=== PATIENT | female | born 1970 | race Caucasian/White ===

== ENCOUNTER 2020-12-22 11:00 | Inpatient (IN) | payer BC, OTHER ==
[2020-12-22] MEDS ORDERED: SODIUM CHLORIDE 0.9% 1,000 ML IV ONE (12:02)
--- NOTE | 2020-12-22 12:43 | ED ---
General Adult HPI - General Source: patient, family, RN notes reviewed, old records reviewed Mode of arrival: wheelchair Limitations: no limitations <Tenzin Nix - Last Filed: 12/22/20 14:47> <Antonio Butcher - Last Filed: 12/22/20 16:58> - General Chief complaint: Neuro Symptoms/Deficit Stated complaint: Vision loss Time Seen by Provider: 12/22/20 11:45 - History of Present Illness Initial comments: 50-year-old female presenting for evaluation of vision changes. Patient has history of brain aneurysm, status post coiling and stenting. Patient had right sided weakness which is been present since September of this year. She had been told this may have been a conversion disorder. She's had a significant amount of stress within the past 12 months. Patient states that this morning she noted a holguin spot in her left visual soares. She denies any worsening weakness. She did have some perioral numbness which has resolved. (Tenzin Nix) - Related Data Home Medications Medication Instructions Recorded Confirmed [id number] 2 tab PO QID PRN 12/22/20 12/22/20 [Excedrin] Famotidine 20 mg PO BID 12/22/20 12/22/20 hydroCHLOROthiazide [Hydrodiuril] 25 mg PO DAILY 12/22/20 12/22/20 lisinopriL 40 mg PO HS 12/22/20 12/22/20 Allergies Allergy/AdvReac Type Severity Reaction Status Date / Time adhesive Allergy Rash/Hives Verified 12/22/20 12:42 Sulfa (Sulfonamide Allergy Rash/Hives Verified 12/22/20 12:42 Antibiotics) Review of Systems ROS Other: All systems not noted in ROS Statement are negative. <Tenzin Nix - Last Filed: 12/22/20 14:47> ROS Other: All systems not noted in ROS Statement are negative. <Antonio Butcher - Last Filed: 12/22/20 16:58> ROS Statement: Those systems with pertinent positive or pertinent negative responses have been documented in the HPI. Past Medical History Past Medical History: Hypertension History of Any Multi-Drug Resistant Organisms: None Reported Additional Past Surgical History / Comment(s): brain coil. Past Psychological History: No Psychological Hx Reported Smoking Status: Current every day smoker Past Alcohol Use History: None Reported Past Drug Use History: None Reported <Tenzin Nix - Last Filed: 12/22/20 14:47> General Exam Limitations: no limitations General appearance: alert, in no apparent distress Head exam: Present: atraumatic, normocephalic Eye exam: Present: normal appearance, PERRL ENT exam: Present: normal exam Neck exam: Present: normal inspection. Absent: tenderness, meningismus Respiratory exam: Present: normal lung sounds bilaterally, respiratory distress Cardiovascular Exam: Present: normal rhythm, tachycardia GI/Abdominal exam: Present: soft. Absent: distended, tenderness, guarding Extremities exam: Present: normal capillary refill. Absent: calf tenderness Neurological exam: Present: other (Patient has right limb upper hemiplegia. Proximal muscle groups of the leg are 5 out of 5. Her left side is 5 out of 5 no drift. Ataxia.) Psychiatric exam: Present: normal affect, normal mood Skin exam: Present: warm, dry, intact. Absent: cyanosis, diaphoretic <Tenzin Nix - Last Filed: 12/22/20 14:47> Course <Tenzin Nix - Last Filed: 12/22/20 14:47> Vital Signs 12/22/20 12/22/20 11:36 12:42 Temperature 98.4 F Pulse Rate 108 H Respiratory 18 18 Rate Blood Pressure 87/50 O2 Sat by Pulse 98 Oximetry - Reevaluation(s) Reevaluation #1: 12/22/20 1500 Patient care signed out at shift change to Dr. Butcher pending workup. 12/22/20 14:50 (Tenzin Nix) EKG Findings - EKG Comments: EKG Findings:: EKG: Normal sinus rhythm, rate of 95, VT interval 178, QRS duration 82, QTC [address] segment elevation, question diffuse VT depression. <Tenzin Nix - Last Filed: 12/22/20 14:47> Medical Decision Making - Lab Data Result diagrams: 12/22/20 12:59 12/22/20 12:59 <Tenzin Nix - Last Filed: 12/22/20 14:47> - Lab Data Result diagrams: 12/22/20 12:59 12/22/20 12:59 <Atnonio Butcher - Last Filed: 12/22/20 16:58> - Medical Decision Making Patient was signed out to me from previous shift physician Dr. Garvin. Briefly, patient is a 50-year-old female with residual right sided sensory par esthesias. 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 She is here today for vision changes in her left eye. She sees a holguin spot in central portion of her vision. She does not have any pain. No other neuro changes besides vision changes. Allegedly this patient was told that her symptoms may be secondary to conversion disorder because she had a workup that showed normal MRI. Laboratory evaluation obtained. CBC, coag panel, metabolic panel is unremarkable. Computed tomography scan of the brain shows no acute processes. CT angio of the head and neck was obtained showing no significant diameter reduction. The examination is nondiagnostic given extensive streak artifact from prior aneurysm clipping. Patient does not have any headache signs of ruptured aneurysm. Some clear fevers any other aneurysms causing patient's visual loss. 4:30 PM: Patient evaluated at bedside and has no progression of symptoms. She states that her vision changes are improved. She is well-appearing. Patient be admitted for acute vision loss. Patient is not a TPA candidate because she woke with symptoms, and it is unclear the time of onset. She has a normal CT brain and CT angio of the head and neck. Furthermore her NIH delta score is 1. At this point risk outweigh the benefits. Case is discussed with Dr. Colt Pool accounting consultant for neurology who will be on consult. He request that patient be given an aspirin and started on Lipitor. He also requests that he should have lipid panel drawn and 2-D echo. Case was discussed with Dr. Vitale of [facility] was willing to accept patients care. Ophthalmology will also be on consult. (Antonio Butcher) - Lab Data Lab Results 12/22/20 12/22/20 12/22/20 Range/Units 12:59 12:59 12:59 WBC 10.5 (3.8-10.6) k/uL RBC 4.24 (3.80-5.40) m/uL Hgb 14.5 (11.4-16.0) gm/dL Hct 41.7 (34.0-46.0) % MCV 98.2 (80.0-100.0) fL MCH 34.2 (25.0-35.0) pg MCHC 34.8 (31.0-37.0) g/dL RDW 12.9 (11.5-15.5) % Plt Count 429 (150-450) k/uL MPV 6.9 Neutrophils % 84 % Lymphocytes % 12 % Monocytes % 3 % Eosinophils % 1 % Basophils % 0 % Neutrophils # 8.8 H (1.3-7.7) k/uL Lymphocytes # 1.3 (1.0-4.8) k/uL Monocytes # 0.3 (0-1.0) k/uL Eosinophils # 0.1 (0-0.7) k/uL Basophils # 0.0 (0-0.2) k/uL PT 9.6 (9.0-12.0) sec INR 0.9 (<1.2) APTT 23.6 (22.0-30.0) sec Sodium 134 L (137-145) mmol/L Potassium 4.6 (3.5-5.1) mmol/L Chloride 105 (98-107) mmol/L Carbon Dioxide 22 (22-30) mmol/L Anion Gap 7 mmol/L BUN 13 (7-17) mg/dL Creatinine 0.69 (0.52-1.04) mg/dL Est GFR (CKD-EPI)AfAm >90 (>60 ml/min/1.73 sqM) Est GFR (CKD-EPI)NonAf >90 (>60 ml/min/1.73 sqM) Glucose 104 H (74-99) mg/dL Calcium 10.0 (8.4-10.2) mg/dL Total Bilirubin 0.4 (0.2-1.3) mg/dL AST 31 (14-36) U/L ALT 21 (4-34) U/L Alkaline Phosphatase 55 (38-126) U/L Troponin I (0.000-0.034) ng/mL Total Protein 6.4 (6.3-8.2) g/dL Albumin 4.1 (3.5-5.0) g/dL 12/22/20 Range/Units 12:59 WBC (3.8-10.6) k/uL RBC (3.80-5.40) m/uL Hgb (11.4-16.0) gm/dL Hct (34.0-46.0) % MCV (80.0-100.0) fL MCH (25.0-35.0) pg MCHC (31.0-37.0) g/dL RDW (11.5-15.5) % Plt Count (150-450) k/uL MPV Neutrophils % % Lymphocytes % % Monocytes % % Eosinophils % % Basophils % % Neutrophils # (1.3-7.7) k/uL Lymphocytes # (1.0-4.8) k/uL Monocytes # (0-1.0) k/uL Eosinophils # (0-0.7) k/uL Basophils # (0-0.2) k/uL PT (9.0-12.0) sec INR (<1.2) APTT (22.0-30.0) sec Sodium (137-145) mmol/L Potassium (3.5-5.1) mmol/L Chloride (98-107) mmol/L Carbon Dioxide (22-30) mmol/L Anion Gap mmol/L BUN (7-17) mg/dL Creatinine (0.52-1.04) mg/dL Est GFR (CKD-EPI)AfAm (>60 ml/min/1.73 sqM) Est GFR (CKD-EPI)NonAf (>60 ml/min/1.73 sqM) Glucose (74-99) mg/dL Calcium (8.4-10.2) mg/dL Total Bilirubin (0.2-1.3) mg/dL AST (14-36) U/L ALT (4-34) U/L Alkaline Phosphatase (38-126) U/L Troponin I <0.012 (0.000-0.034) ng/mL Total Protein (6.3-8.2) g/dL Albumin (3.5-5.0) g/dL Disposition <Tenzin Nix - Last Filed: 12/22/20 14:47> Decision Time: 16:58 <Antonio Butcher - Last Filed: 12/22/20 16:58> Clinical Impression: Vision loss Disposition: ADMITTED IP TO THIS [facility] Condition: Fair Referrals: Oumar Shetty MD [Primary Care Provider] - 1-2 days
[2020-12-22 13:13] LABS: Basophils % (A) 0 %; Eosinophils # (A) 0.1 k/uL (0-0.7); Eosinophils % (A) 1 %; HCT 41.7 % (34.0-46.0); HGB 14.5 gm/dL (11.4-16.0); Lymphocytes # (A) 1.3 k/uL (1.0-4.8); Lymphocytes % (A) 12 %; MCH 34.2 pg (25.0-35.0); MCHC 34.8 g/dL (31.0-37.0); MCV 98.2 fL (80.0-100.0); Mean Platelet Volume 6.9; Monocytes # (A) 0.3 k/uL (0-1.0); Monocytes % (A) 3 %; Neutrophils # (A) 8.8 k/uL (1.3-7.7); Neutrophils % (A) 84 %; Platelet Count 429 k/uL (150-450); RBC 4.24 m/uL (3.80-5.40); RDW 12.9 % (11.5-15.5); WBC 10.5 k/uL (3.8-10.6)
--- NOTE | 2020-12-22 13:25 | XR ---
EXAMINATION TYPE: XR chest 2V DATE OF EXAM: 12/22/2020 COMPARISON: None HISTORY: 50-year-old female confusion, altered mental status TECHNIQUE: AP and lateral views FINDINGS: The cardiomediastinal silhouette, aorta, and pulmonary vasculature are within normal limits. Mild hyp erinflation. Otherwise, lungs and pleural spaces are clear. IMPRESSION: Mild hyperinflation may relate to depth of inspiration or underlying emphysema. Otherwise, no acute c ardiopulmonary process.
[2020-12-22 13:28] LABS: ALT 21 U/L (4-34); AST 31 U/L (14-36); African American GFR (CKD) >90 (>60 ml/min/1.73 sqM); Albumin 4.1 g/dL (3.5-5.0); Alkaline Phosphatase 55 U/L (38-126); Anion Gap 7 mmol/L; Blood Urea Nitrogen 13 mg/dL (7-17); Carbon Dioxide 22 mmol/L (22-30); Chloride 105 mmol/L (98-107); Glucose 104 mg/dL (74-99); Non-African American GFR(CKD) >90 (>60 ml/min/1.73 sqM); Potassium 4.6 mmol/L (3.5-5.1); Sodium 134 mmol/L (137-145); Total Bilirubin 0.4 mg/dL (0.2-1.3); Total Protein 6.4 g/dL (6.3-8.2)
[2020-12-22 13:29] LABS: INR 0.9 (<1.2); Partial Thromboplastin Time 23.6 sec (22.0-30.0); Prothrombin Time 9.6 sec (9.0-12.0)
--- NOTE | 2020-12-22 14:56 | CT ---
EXAMINATION TYPE: CT brain wo con for TPA DATE OF EXAM: 12/22/2020 COMPARISON: None HISTORY: Vision Loss CT DLP: [address] of the brain was performed. Extensive streak artifact from aneurysm clipping limits portions of the study. The ventricles, basal cisterns and sulci overlying the cerebral convexities demonstrate mild enlargem ent. There is no evidence for intracranial hemorrhage or sulcal effacement. There is decreased attenuation about the periventricular white matter and deep white matter of both c erebral hemispheres, compatible with chronic small vessel ischemia. Differential diagnosis does inclu de demyelination. No mass effects are seen.No midline shift. Osseous calvarium is intact. If symptoms persist consider MRI. IMPRESSION: 1. Age related atrophic and chronic small vessel ischemic change without acute intracranial process s een at this time.Extensive streak artifact from aneurysm clipping limits portions of the study.
--- NOTE | 2020-12-22 16:04 | CT ---
Bilateral mammogram: Moderate EXAMINATION TYPE: CT angio head neck DATE OF EXAM: 12/22/2020 COMPARISON: none HISTORY: Vision Loss CT DLP: 611.9 mGycm CONTRAST: Performed without and with IV Contrast, patient injected with 65 ml mL of Isovue 370. Combination Contrast CTA cervical carotids and [place] CTA cervical carotids with 3-D recons truction Contrast CTA of the cervical carotids was performed 3-D reconstruction imaging obtained at a separate workstation. Right carotid system: Mild plaque is seen of the right common carotid artery. There is mild plaque a lso noted at the carotid bulb and proximal ICA. No significant diameter reduction. ECA is patent. Right vertebral artery appears unremarkable. Left carotid system: Mild plaque is seen of the left common carotid artery. There is mild plaque als o noted at the carotid bulb and proximal ICA. No significant diameter reduction. ECA is patent. Lef t vertebral artery appears unremarkable. IMPRESSION: 1. No significant diameter reduction to account for the patient's symptoms. CTA [place] with 3-D reconstruction. The examination is nondiagnostic given extensive streak artifact from prior aneurysm clipping. Contrast CTA of the [place] was performed 3-D reconstruction imaging obtained at a separate workstation. IMPRESSION: 1. Essentially nondiagnostic evaluation of the [place].
[2020-12-22] MEDS ORDERED: ASPIRIN 81 MG PO STA (16:50)
[2020-12-22] MEDS ORDERED: ATORVASTATIN 80 MG TAB PO STA (16:50)
[2020-12-22] MEDS ORDERED: NALOXONE 0.4 MG/ML 1 ML VIAL IV PRN ×2 (16:54→18:09)
[2020-12-22] MEDS: SODIUM CHLORIDE 0.9% 1,000 ML IV SCH (17:15)
[2020-12-22] MEDS: MORPHINE SULFATE 4 MG/ML SYRINGE IVP PRN ×2 (17:41→23:11)
--- NOTE | 2020-12-22 18:16 | P.HPIM ---
History of Present Illness H&P Date: 12/22/20 Chief Complaint: vision loss 50-year-old female with history of brain aneurysm status post clipping in June of last year, right sided weakness and right arm spasms thought to be secondary to conversion disorder by previous evaluation by neurology presenting for evaluation of vision loss in the right eye. She also states that she has been having increasing numbness around her mouth and the right fingertips. She states that she had a significant amount of stress due to her mother dying from a stroke last August. She denies any worsening weakness. Evaluation in the emergency department with basic labs, head CT as well as CT angiogram of the head and neck are all unremarkable. She was admitted to observation for neurology evaluation. Review of Systems Complete review of system performed, pertinent positives per HPI, otherwise negative. Past Medical History Past Medical History: Hypertension History of Any Multi-Drug Resistant Organisms: None Reported Additional Past Surgical History / Comment(s): brain coil. Past Psychological History: No Psychological Hx Reported Smoking Status: Current every day smoker Past Alcohol Use History: None Reported Past Drug Use History: None Reported Medications and Allergies Home Medications Medication Instructions Recorded Confirmed Type [id number] 2 tab PO QID PRN 12/22/20 12/22/20 History [Excedrin] Famotidine 20 mg PO BID 12/22/20 12/22/20 History hydroCHLOROthiazide [Hydrodiuril] 25 mg PO DAILY 12/22/20 12/22/20 History lisinopriL 40 mg PO HS 12/22/20 12/22/20 History Allergies Allergy/AdvReac Type Severity Reaction Status Date / Time adhesive Allergy Rash/Hives Verified 12/22/20 12:42 Sulfa (Sulfonamide Allergy Rash/Hives Verified 12/22/20 12:42 Antibiotics) Physical Exam Vitals: Vital Signs Temp Pulse Resp BP Pulse Ox 12/22/20 17:00 84 18 165/98 98 12/22/20 16:00 97.2 F L 80 18 165/91 98 12/22/20 15:00 18 12/22/20 14:00 18 12/22/20 13:00 18 12/22/20 12:42 18 12/22/20 11:36 98.4 F 108 H 18 87/50 98 Intake and Output 12/22/20 12/22/20 12/22/20 06:59 14:59 22:59 Other: Weight 80.286 kg Constitutional: No acute distress, conversant Eyes:Anicteric sclerae, moist conjunctiva, no lid-lag, PERRLA, ENMT: Oropharynx clear, no erythema, exudates Neck: Supple, FROM, no masses, or JVD, No carotid bruits, No thyromegaly Lungs: Clear to auscultation, Clear to percussion, Normal respiratory effort, no accessory muscle use Cardiovascular: Heart regular in rate and rhythm, No murmurs, gallops, or rubs, No peripheral edema Abdominal: Soft, Nontender, no guarding, rebound or rigidity, Normoactive bowel sounds, No hepatomegaly, No splenomegaly, No palpable mass Skin: Normal temperature, tone, texture, turgor, no induration, No subcutaneous nodules, No rash, lesions, No ulcers Extremities: No digital cyanosis, No clubbing, Pedal pulses intact and symmetrical, Radial pulses intact and symmetrical, No calf tenderness Psychiatric: Alert and oriented to person, place and time, low affect. Frequently tearful Neuro: Right-sided weakness, right arm spasms, Cranial nerves II-XII grossly intact, no focal sensory deficits Results CBC & Chem 7: 12/22/20 12:59 12/22/20 12:59 Labs: Abnormal Lab Results - Last 24 Hours (Table) 12/22/20 12/22/20 Range/Units 12:59 12:59 Neutrophils # 8.8 H (1.3-7.7) k/uL Sodium 134 L (137-145) mmol/L Glucose 104 H (74-99) mg/dL Assessment and Plan Plan: Visual changes Likely secondary to stress, anxiety and conversion disorder Admit to observation Neurology consult Psychiatry consult Further neurology workup according to neurologist Essential hypertension Stable Resume meds Admit to observation
[2020-12-22] MEDS ORDERED: lisinopriL 20 MG TAB PO SCH (21:00)
[2020-12-22] MEDS: FAMOTIDINE 20 MG TAB PO SCH (23:11)
[2020-12-23] MEDS: MORPHINE SULFATE 4 MG/ML SYRINGE IVP PRN ×2 (05:45→15:22)
[2020-12-23 08:11] LABS: Cholesterol 155 mg/dL (<200); HDL Cholesterol 62 mg/dL (40-60); LDL Cholesterol,Calculated 73 mg/dL (0-99); Triglycerides 102 mg/dL (<150)
[2020-12-23] MEDS: hydroCHLOROthiazide 25 MG TAB PO SCH (08:22)
[2020-12-23] MEDS: FAMOTIDINE 20 MG TAB PO SCH ×2 (08:22→21:08)
[2020-12-23] MEDS ORDERED: PROPARACAINE 0.5% OPHTH DROPS 15 ML BTL BOTH EYES STA (09:00)
[2020-12-23] MEDS ORDERED: TROPICAMIDE 1% OPHTH DROPS 2 ML BTL BOTH EYES ONE (09:00)
[2020-12-23] MEDS ORDERED: ARTIFICIAL TEARS-HYPROMELLOSE DROPS 15 ML BTL BOTH EYES PRN (09:00)
--- NOTE | 2020-12-23 11:01 | ECHOF ---
Referral Reason:VISION LOSS MEASUREMENTS -------- HEIGHT: 162.6 cm WEIGHT: 80.3 kg BP: 188/83 RVIDd: 2.7 cm (< 3.3) IVSd: 1.5 cm (0.6 - 1.1) LVIDd: 4.6 cm (3.9 - 5.3) LVPWd: 1.2 cm (0.6 - 1.1) IVSs: 1.8 cm LVIDs: 2.9 cm LVPWs: 1.6 cm LAESV Index (A-L): 28.32 ml/m Ao Diam: 3.6 cm (2.0 - 3.7) AV Cusp: 2.0 cm (1.5 - 2.6) MV EXCURSION: 22.777 mm (> 18.000) MV EF SLOPE: 51 mm/s (70 - 150) EPSS: 0.2 cm MV E Stephen: 1.22 m/s MV DecT: 263 ms MV A Stephen: 1.08 m/s MV E/A Ratio: 1.13 AV maxP.36 mmHg AV meanP.18 mmHg RAP: 15.00 mmHg RVSP: 44.52 mmHg FINDINGS -------- Sinus rhythm. This was a technically adequate study. The left ventricular size is normal. There is moderate concentric left ventricular hypertrophy. O verall left ventricular systolic function is normal with, an EF between 60 - 65 %. The right ventricle is normal in size. Normal LA size by volume 22+/-6 ml/m2. The right atrium is normal in size. Interatrial and interventricular septum intact. The aortic valve is bicuspid. There is mild aortic stenosis present. Peak/mean gradient across th e Aortic Valve is 16.36mmHg / 8.18mmHg. The mitral valve is normal. Mild tricuspid regurgitation present. There is mild pulmonary hypertension. The right ventricular systolic pressure, as measured by Doppler, is 44.52mmHg. Trace/mild (physiologic) pulmonic regurgitation. The aortic root size is normal. Normal inferior vena cava with less than 50% inspiratory collapse consistent with estimated right atr ial pressure of 15 mmHg. There is no pericardial effusion. CONCLUSIONS -------- 1. The left ventricular size is normal. 2. There is moderate concentric left ventricular hypertrophy. 3. Overall left ventricular systolic function is normal with, an EF between 60 - 65 %. 4. The aortic valve is bicuspid. 5. There is mild aortic stenosis present. 6. Peak/mean gradient across the Aortic Valve is 16.36mmHg / 8.18mmHg. 7. Mild tricuspid regurgitation present. 8. There is mild pulmonary hypertension. 9. The right ventricular systolic pressure, as measured by Doppler, is 44.52mmHg. 10. Trace/mild (physiologic) pulmonic regurgitation. 11. Normal inferior vena cava with less than 50% inspiratory collapse consistent with estimated right atrial pressure of 15 mmHg. 12. There is no pericardial effusion. NUCLEAR MEDICINE SPECIALIST: Lennie Ortega RDCS
--- NOTE | 2020-12-23 12:10 | P.CNNES ---
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 She stated that she seeing gag response over a bilateral left side of the eyes and it's been happening since the yesterday 4:00 in the morning. She said when she covered either eye it does not resolve. She denies of any diplopia. Denies of any weakness look into the right or left or up and down. She denies of any fever. She stated that she is also noticed num bness in the fingertips of the entire left hand as well as numbness around the left mouth which the lasted for a couple hours then that resolved. She denies of any worsening weakness on the right side or any new weakness. She denies difficulty getting words out. Besides that visual disturbance as she said that neurologically she is about the same at. She denies of any headache. She denies being on any antiplatelets or statin. According to the patient that she had that a brain aneurysm coil in June 2020 over at [facility] (by Dr. Taylor, Neurosurgeon) then 2 month later she noticed that she had right-sided weakness and according to the patient she was told that it was not related to her aneurysm or the coiling. He had a diagnostic cerebral angiogram regarding the coiling by the neurosurgeon in September 2020 and was told that everything looks stable and was told to get the a surveillance in September 2021. She said that she has is following-up with a neurologist (Dr. Cuellar) over at [facility] and had MRI of the brain and was told her right-sided weakness so was due to conversion according to the patient. She was seen last by Dr. Cuellar in 3rd week of November 2020 and has appointment with him in December 2020. Regarding her right-sided weakness she said that she has chronic neck pain but denies any radiation to the arms and denies any numbness or tingling of bilateral proximal remedies. Workup in the hospital consisted of: Distal vital signs: Blood pressure of 87/50, heart rate of 108, respiratory of 18, temperature of 98.4 Fahrenheit oral, respiratory rate of 98% room air. CT of the head is reported as age-related atrophic and chronic small vessel ischemic change without acute intracranial process seen at this time. Extensive streak artifact from aneurysm clipping limits portion of the study. Upon reviewing its is seems in the basilar tip aneurysm status post coiling. I reviewed it with the reading radiologist and he did agree that he felt was in the basilar tip aneurysm in the from the past. CTA head and neck is reported as no significant diameter reduction to account for the patient's symptoms. CT angiography [place] with 3-D reconstruction. Examination is nondiagnostic given the extensive streak artifact from the prior aneurysm clipping. White blood cell is 10.5 which is normal. Sodium is 134 which is a minimally low. The glucose is 104. Lipid panel: Triglyceride 102, cholesterol 155, LDL is 73 and HDL 62. Review of Systems Review of system: The 12 point system was reviewed and apparent positive and negative per HPI. Past Medical History Past Medical History: Hypertension Additional Past Medical History / Comment(s): Brain aneurysm 17 coils and 3 stents History of Any Multi-Drug Resistant Organisms: None Reported Additional Past Surgical History / Comment(s): brain coil. Past Psychological History: No Psychological Hx Reported Smoking Status: Current every day smoker Past Alcohol Use History: None Reported Past Drug Use History: None Reported Medications and Allergies Home Medications Medication Instructions Recorded Confirmed Type Zaajdfg-[id number] [id number] 2 tab PO QID PRN 12/22/20 12/22/20 History [Excedrin] Famotidine 20 mg PO BID 12/22/20 12/22/20 History hydroCHLOROthiazide [Hydrodiuril] 25 mg PO DAILY 12/22/20 12/22/20 History lisinopriL 40 mg PO HS 12/22/20 12/22/20 History Allergies Allergy/AdvReac Type Severity Reaction Status Date / Time adhesive Allergy Rash/Hives Verified 12/22/20 12:42 Sulfa (Sulfonamide Allergy Rash/Hives Verified 12/22/20 12:42 Antibiotics) Physical Examination - Vital Signs Vital Signs: Vital Signs Temp Pulse Pulse Resp BP BP Pulse Ox 12/23/20 08:19 97.6 F 85 18 169/72 97 12/23/20 08:00 85 18 12/23/20 04:00 88 18 188/83 95 12/23/20 02:00 76 18 12/22/20 22:42 98.1 F 76 18 180/85 94 L 12/22/20 20:00 72 18 159/95 98 12/22/20 19:00 79 18 136/97 98 12/22/20 18:00 81 18 98 12/22/20 17:00 84 18 165/98 98 12/22/20 16:00 97.2 F L 80 18 165/91 98 12/22/20 15:00 18 12/22/20 14:00 18 12/22/20 13:00 18 12/22/20 12:42 18 12/22/20 11:36 98.4 F 108 H 18 87/50 98 Intake and Output 12/22/20 12/23/20 12/23/20 22:59 06:59 14:59 Intake Total 20 Balance 20 Intake: Intake, IV Titration 20 Amount Sodium Chloride 0.9% 1, 20 000 ml @ 20 mls/hr IV . Q24H [facility] Rx#:[id number] Other: Voiding Method Toilet Weight 80.286 kg 81.3 kg GENERAL: The patient is lying in bed and is not in acute distress. CHEST: The heart rate is regular rate rhythm. No murmurs to auscultation. No carotid bruit bilaterally. LUNG: Clear to auscultation bilaterally no wheezing noted throughout. Not labored breathing. ABDOMEN/GI: Bowel sounds present in all 4 quadrants. No tenderness to palpation throughout. NEUROLOGICAL: Higher mental function: The patient is awake, alert, oriented to self, place and time. Patient is following commands. No aphasia and no neglect. Cranial nerves: Visual acuity is 20/40 OU without correction. The pupils are round, equal and reactive to light and accommodation. Visual soares are full to confrontation throughout. Extraocular movement is intact no nystagmus is noted. Facial sensation is normal to touch throughout. The facial strength is normal throughout. Hearing is normal bilaterally to hand rub. Tongue is midline and moved [id number] without any difficulty. Mild dysarthria is noted (chronic). Shoulder shrug is antigravity bilaterally and had limited assessing because of pain. Motor: Gait is deferred. The strength is proximally of right upper extremity is antigravity but has weakness distally > proximally. Is able to lift right lower extremity above gravity and right thigh flexion/extension is 4+ while distall is 4 except ankles are 3/5. While left is 5/5. There is increase tone of ther right elbow and mild increase tone in right lower extremity (especially ankle). Cerebellum: Normal finger to nose over the left. Sensation: Sensation is normal to touch throughout. Reflexes (right/left): Entire right is 3+ while left is brisk over the biceps and patellar. Plantars are upgoing bilaterally. Results Calcium is 10.0 which is normal. The AST is 31 and ALTs 21 which is normal. Coagulation study: PT of 9.6, INR 0.9 and the PTT is 23.6 Angulo virus PCR is not detected. - Laboratory Findings CBC and BMP: 12/22/20 12:59 12/22/20 12:59 Abnormal Lab Findings: Abnormal Labs 12/22/20 12/22/20 12/23/20 12:59 12:59 07:40 Neutrophils # 8.8 H Sodium 134 L Glucose 104 H HDL Cholesterol 62 H Assessment and Plan Assessment: This is a 50-year-old woman that presented to the emergency department on 2020 with visual disturbance over the left eye. Visual disturbance seeing schwartz spot over bilateral left side: Unknown exact cause. Cannot rule out stroke. 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 Residual right-sided weakness with increased tone which has been present since August 2020 or September 2020 (was told she has conversion disorder by her neurologist)---I Don't think this is coversion and feels seem possibly cervical lesion. Cannot rule out brain aneurysm as culprit (she was told by her neurosurgeon it was not cause). Hypertension Chronic Stress disorder Plan: CT of the head is reported as age-related atrophic and chronic small vessel ischemic change without acute intracranial process seen at this time. Extensive streak artifact from aneurysm clipping limits portion of the study. Upon reviewing its is seems in the basilar tip aneurysm status post coiling not clipping. I reviewed it with the reading radiologist and he did agree that he felt was in the basilar tip aneurysm in the from the past and he will he felt was more coiling over clipping. CTA head and neck is reported as no significant diameter reduction to account for the patient's symptoms. CT angiography [place] with 3-D reconstruction. Examination is nondiagnostic given the extensive streak artifact from the prior aneurysm clipping. I ordered MRI of the brain, MRA of the head and MRI of the cervical. Lipid panel: Triglyceride 102, cholesterol 155, LDL is 73 and HDL 62. I started the patient on aspirin 81 mg and Lipitor 40 mg for secondary stroke prophylaxis. 2-D echo is pending Continue cardiac monitoring. I consulted physical therapy and occupation therapy Ophthalmology team is consulted. Please avoid any hypotensive episode and keep the blood pressure normotensive and we'll defer the management to the primary team. Thank you for the consultation. Colt Pool M.D. Neuro-hospitalist Time with Patient: Greater than 30
[2020-12-23] MEDS: ASPIRIN 81 MG PO SCH (12:13)
--- NOTE | 2020-12-23 14:29 | P.CON ---
Consult Note - . Consult date: 12/23/20 Assessment/Plan:: This is 50 y/o female who underwent an aneurysmal coiling in June 2020 without incident. She was without side effects until approximately 2 months later when she demonstrated right-sided weakness. Apparently this became an issue some time after suspending the use of clopidogrel. And this problem is still under study. On 22 December at ~0300 hrs on arising to go to the bathroom she became aware of slightly off left central "smudge" affecting both eyes. She states that her central vision change has not affected her ability to read, but is aware of a "greying" of that vision. This problem has not improved since arriving and being admitted to the hospital. I currently have no comparitive visual acuities from emergency room admission for this afternoon's examination. She states her last eye exam was about 2 years ago. She had obtained reading glasses at that time, but has lost them and has been using OTC readers in lieu of the prescription lenses. She denies any previous eye problems, e.g. glaucoma, surgery, macular or vascular problems. There is no history of amblyopia either. Ext: normal facial examination Va: w/ OTC readers as distance 20/20 in each eye EOM: full and orthophoric Pupils: no APD from 4 to 3 mm on presenation of light Confrontational Barker: normal OU IOP: Tonopen @1250 17 OD, 16 OS. Dilated: topicamide & neosynephrine @ 1250 hrs ( expect about 6 hours of dilation ) Cornea: clear OU AC: clear and quiet OU Iris: no pathology Lens: clear OU Vitreous: clear OU Optic nerve: S/F/P C:D 0.1 OU, no dropout noted Mac: normal foveolar light reflex, no edema, deposits or exudative changes OU Vascular: 0.60 OU Peripheral retina: Normal, no aneurysms, heme, exudative changes; no tears, scars, other physical defects noted A: Vision abnormalities: H53.9, bilateral: the description of the problem is possibly posterior chiasmal defect. Can better determine if a visual field has been completed. Perhaps additional information can be gleaned from an MRI. CT too tough to follow optic nerves posteriorly. Presbyopia: normal age-related changes needs update in glasses and unrelated to the current complaint for admission. P: Will defer studies and ongoing treatment plans to current care team. I am can provide additional information as needed, possibly visual field to determine scope of defect and its described homonymous nature. I will return on request while hospitalized. Thank you for the consultation of this interesting patient.
--- NOTE | 2020-12-23 14:47 | P.PN ---
Subjective Progress Note Date: 12/23/20 Principal diagnosis: visual field defect Patient still having the visual defect, unchanged compared to presentation yesterday. Yesterday she told me that was in her right eye and today she is stating that it is in both eyes. No slurred speech, double vision, no worsening in her chronic right sided weakness. Objective - Vital Signs Vital signs: Vital Signs Temp 97.7 F 12/23/20 12:00 Pulse 86 12/23/20 12:00 Resp 18 12/23/20 12:00 BP 171/94 12/23/20 12:00 Pulse Ox 98 12/23/20 12:00 Intake & Output 12/22/20 12/23/20 12/23/20 18:59 06:59 18:59 Intake Total 20 Balance 20 Weight 80.286 kg 81.3 kg Intake: Intake, IV Titration 20 Amount Sodium Chloride 0.9% 1, 20 000 ml @ 20 mls/hr IV . Q24H [facility] Rx#:[id number] Other: Voiding Method Toilet # Voids 1 - Exam Constitutional: No acute distress, conversant Eyes:Anicteric sclerae, moist conjunctiva, no lid-lag, PERRLA, ENMT: Oropharynx clear, no erythema, exudates Neck: Supple, FROM, no masses, or JVD, No carotid bruits, No thyromegaly Lungs: Clear to auscultation, Clear to percussion, Normal respiratory effort, no accessory muscle use Cardiovascular: Heart regular in rate and rhythm, No murmurs, gallops, or rubs, No peripheral edema Abdominal: Soft, Nontender, no guarding, rebound or rigidity, Normoactive bowel sounds, No hepatomegaly, No splenomegaly, No palpable mass Skin: Normal temperature, tone, texture, turgor, no induration, No subcutaneous nodules, No rash, lesions, No ulcers Extremities: No digital cyanosis, No clubbing, Pedal pulses intact and symmetrical, Radial pulses intact and symmetrical, No calf tenderness Psychiatric: Alert and oriented to person, place and time, low affect. Frequently tearful Neuro: Right-sided weakness, right arm spasms, Cranial nerves II-XII grossly intact, no focal sensory deficits - Labs CBC & Chem 7: 12/22/20 12:59 12/22/20 12:59 Labs: Abnormal Lab Results - Last 24 Hours (Table) 12/23/20 Range/Units 07:40 HDL Cholesterol 62 H (40-60) mg/dL Assessment and Plan Plan: Visual changes Ophthalmology evaluation did not reveal any abnormalities to the bedside exam Patient will undergo brain MRI as well as MRA of the head and neck Neurology following Psychiatry consult Essential hypertension Stable Hold meds for now Anticipated discharge: 2 days Disposition: Home
--- NOTE | 2020-12-23 15:01 | P.CN ---
Psychiatric Consult - . Consult date: 12/23/20 Consult:: 12/23/20 14:48 IDENTIFYING DATA: This patient is a 50-year-old female currently lives alone in a condominium with no kids and a single REASON FOR REFERRAL: Psychiatry was consulted for "conversion" HISTORY OF PRESENT ILLNESS: The patient presented to the hospital with complaints of vision changes in her left eye. Patient apparently has a history of a brain aneurysm. She has been complaining of right-sided weakness since September according the ER report. She also had described a stressful past all months. Patient apparently had a workup with a negative MRI according to ER report. Patient had a computed tomography scan of her head which did not show any changes. Patient was seen today by technical document writer and agreeable to speak at the bedside. Patient was fairly labile and tearful while speaking with technical document writer and had a low threshold for crying. She claims that she is not feeling "not depressed" however he did mention that she is having difficulties adjusting to her functioning over the past few months. She claims that in June she had the coiling procedure done for her aneurysm and claims that since September 2020 she started developing right-sided weakness in her arms and her legs. She claims that now she has a holguin spot that she scenes in her left eye however that has been unchanged since being in the hospital. She claims that she is feeling uncomfortable and also claims that she has been having "emotional outbursts" and yawning. She claims that she's been having poor sleep. At this time patient denies any suicidal or homical ideations, intent or plan. Patient denies any auditory, visual hallucinations and denies any paranoia or delusions. Patients admits to using cigarettes daily however denies any other recreational drug use. PAST PSYCHIATRIC HISTORY: Patient has a a history of depression. Patient denies being on any psychiatric medications. Patient denies any previous psychiatric hospitalizations. She claims that she is to see a counselor several years ago however claims she stopped following up. Patient denies any history of suicide attempts in the past. PAST MEDICAL HISTORY: Hypertension, brain aneurysm with coil. ALLERGIES: as per EMR. CHEMICAL DEPENDENCY HISTORY: as per HPI. FAMILY PSYCHIATRIC/SUBSTANCE USE HISTORY: denies SOCIAL HISTORY: Patient was born and raised in [place] [place]. She claims that she completed high school did not do any college. 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 She denied ever going to assisted or long-term. She states that she lives alone in a condominium with no kids and is single. MENTAL STATUS EXAM: General Appearance: Patient appears to be stated age is alert, attempts to be cooperative. Patient appears to have poor hygiene and grooming wearing hospital gown with fair eye contact. Uses a walker. Behavior: Patient is attending to cooperate and is not agitated however is tearful and labile Speech: Patient's speech is fluent and nonpressured. Mood/Affect: Patient reports their mood is "up and down", affect is congruent and labile Suicidality/Homicidality: Patient denies having any suicidal or homicidal ideation intent or plan. Perceptions: Patient denies any visual hallucinations and denies any auditory hallucinations Though content/process: There is no evidence of any delusional thought content and thought process is linear and goal-directed. Memory and concentration: AOX3, grossly intact for the purposes of this session. Can spell "WORLD" backwards Judgment and insight: fair IMPRESSIONS: Mood disorder unspecified, rule out secondary to a general medical condition Nicotine dependence PLAN: -At this time patient DOES NOT meet criteria for inpatient psychiatric admission. -Will await MRI and further studies as ordered by neurology to rule out conversion disorder as this is unlikely given patients symptoms, history and exam findings. -Would recommend the following medication changes/additions: Started Depakote 250 mg 3 times a day for mood stabilization. Melatonin 5 mg daily at bedtime for sleep. -sample worker to provide patient with outpatient mental health/psychiatry resources for appropriate follow up upon discharge -Communicated plan to patient's nurse -Will continue to follow along -Please contact with any questions.
[2020-12-23] MEDS: PHENYLEPHRINE 2.5% OPHTH DRP 2ML BOTH EYES SCH (15:13)
[2020-12-23] MEDS: DIVALPROEX ER 250 MG TAB.ER.24H PO SCH ×2 (15:22→21:08)
[2020-12-23] MEDS: SODIUM CHLORIDE 0.9% 1,000 ML IV SCH (18:29)
[2020-12-23] MEDS: ATORVASTATIN 40 MG TAB PO SCH (21:08)
[2020-12-23] MEDS: MELATONIN 5 MG TABLET PO SCH (21:08)
[2020-12-23] MEDS: HYDROcodone/APAP 5-325MG 1 EACH TAB PO PRN (21:08)
[2020-12-24 00:36] LABS: Hemoglobin A1C 4.8 % (4.0-6.0)
[2020-12-24] MEDS: FAMOTIDINE 20 MG TAB PO SCH ×2 (07:58→21:55)
[2020-12-24] MEDS: hydroCHLOROthiazide 25 MG TAB PO SCH (07:58)
[2020-12-24] MEDS: ASPIRIN 81 MG PO SCH (07:58)
[2020-12-24] MEDS: DIVALPROEX ER 250 MG TAB.ER.24H PO SCH (07:58)
[2020-12-24] MEDS: PHENYLEPHRINE 2.5% OPHTH DRP 2ML BOTH EYES SCH (07:59)
--- NOTE | 2020-12-24 09:56 | P.PN ---
Subjective Progress Note Date: 12/24/20 The patient was seen at bedside and that she said her visual disturbance is slight better but not resolved. She said the still see dark spots over left side of both eyes but slightly smaller today compared to yesterday. Psychiatric team felt the patient and they felt the patient had the mood disorder unspecified. Ophthamology team (Dr. Dunne) evaluate the patient and he felt that the patient's visual deficit is possibly posterior chiasmal defect Objective - Vital Signs Vital signs: Vital Signs Temp 97.7 F 12/24/20 07:56 Pulse 71 12/24/20 07:56 Resp 16 12/24/20 07:56 BP 143/87 12/24/20 07:56 Pulse Ox 95 12/24/20 07:56 Intake & Output 12/23/20 12/24/20 12/24/20 18:59 06:59 18:59 Intake Total 200 Output Total 200 Balance 0 Weight 81.4 kg Intake: Intake, IV Titration 200 Amount Sodium Chloride 0.9% 1, 200 000 ml @ 20 mls/hr IV . Q24H [facility] Rx#:[id number] Output: Urine 200 Other: Voiding Method Toilet Toilet # Voids 2 1 1 - Exam GENERAL: The patient is lying in bed and is not in acute distress. NEUROLOGICAL: Higher mental function: The patient is awake, alert, oriented to self, place and time. Patient is following commands. No aphasia and no neglect. Cranial nerves: Visual acuity is 20/40 OU without correction. The pupils are round, equal and reactive to light and accommodation. Visual soares are full to confrontation throughout. Extraocular movement is intact no nystagmus is noted. She has grayish spot that is circular on left side of both eyes and does not res olve with either eye closure. Facial sensation is normal to touch throughout. The facial strength is normal throughout. Hearing is normal bilaterally to hand rub. Tongue is midline and moved [id number] without any difficulty. Mild dysarthria is noted (chronic). Shoulder shrug is antigravity bilaterally and had limited assessing because of pain. Motor: Gait is deferred. The strength is proximally of right upper extremity is antigravity but has weakness distally > proximally. Is able to lift right lower extremity above gravity and right thigh flexion/extension is 4+ while distall is 4 except ankles are 3/5. While left is 5/5. There is increase tone of ther right elbow and mild increase tone in right lower extremity (especially ankle). Cerebellum: Normal finger to nose over the left. Sensation: Sensation is normal to touch throughout. Reflexes (right/left): Entire right is 3+ while left is brisk over the biceps and patellar. Plantars are upgoing bilaterally. - Labs CBC & Chem 7: 12/22/20 12:59 12/22/20 12:59 Assessment and Plan Assessment: This is a 50-year-old woman that presented to the emergency department on 12/22/2020 with visual disturbance over the left eye. Visual disturbance seeing schwartz spot over bilateral left side ---slight improvement today compared to yesterday: Unknown exact cause. Cannot rule out stroke vs aneurysm. 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 Residual right-sided weakness with increased tone which has been present since August 2020 or September 2020 (was told she has conversion disorder by her neurologist)---I Don't think this is conversion and feels seem possibly cervical lesion. Cannot rule out brain aneurysm as culprit (she was told by her neurosurgeon it was not cause). Hypertension Mood disorder unspecified (has chronic stress) Plan: CT of the head is reported as age-related atrophic and chronic small vessel ischemic change without acute intracranial process seen at this time. Extensive streak artifact from aneurysm clipping limits portion of the study. Upon reviewing its is seems in the basilar tip aneurysm status post coiling not clipping. I reviewed it with the reading radiologist and he did agree that he felt was in the basilar tip aneurysm in the from the past and he will he felt was more coiling over clipping. CTA head and neck is reported as no significant diameter reduction to account for the patient's symptoms. CT angiography round [place] with 3-D reconstruction. Examination is nondiagnostic given the extensive streak artifact from the prior aneurysm clipping. Pending MRI of the brain, MRA of the head and MRI of the cervical. Lipid panel: Triglyceride 102, cholesterol 155, LDL is 73 and HDL 62. Goal in strokes is LDL is less than 70. TSH is 1.32 which is normal. Hemoglobin A1c is 4.8 which is also considered normal. Continue aspirin 81 mg and Lipitor 40 mg for secondary stroke prophylaxis. 2-D echo: It is reported as moderate concentric left ventricular hypertrophy. Overall left ventricle systolic function is normal with ejection fraction of 60- 65%. There is a mild aortic stenosis present. Mild pulmonary hypertension. Normal left atrial size by volume. Continue cardiac monitoring. Physical therapy and occupation therapy Psychiatric team felt the patient and they felt the patient had the mood disorder unspecified. Ophthamology team (Dr. Dunne) evaluate the patient and he felt that the patient's visual deficit is possibly posterior chiasmal defect Please avoid any hypotensive episode and keep the blood pressure normotensive and we'll defer the management to the primary team. We'll defer the rest of medical management to the primary team. The plan is discussed with the patient's nurse and primary team. Colt Pool M.D. Neuro-hospitalist Time with Patient: Less than 30
--- NOTE | 2020-12-24 13:46 | P.PN ---
Subjective Progress Note Date: 12/24/20 Principal diagnosis: visual field defect Patient states that the visual blurring area in both eyes is getting smaller. No new neurological complaints. No overnight events. Objective - Vital Signs Vital signs: Vital Signs Temp 97.9 F 12/24/20 12:00 Pulse 82 12/24/20 13:34 Resp 16 12/24/20 13:34 BP 145/86 12/24/20 12:00 Pulse Ox 95 12/24/20 12:00 Intake & Output 12/23/20 12/24/20 12/24/20 18:59 06:59 18:59 Intake Total 200 Output Total 200 Balance 0 Weight 81.4 kg Intake: Intake, IV Titration 200 Amount Sodium Chloride 0.9% 1, 200 000 ml @ 20 mls/hr IV . Q24H [facility] Rx#:[id number] Output: Urine 200 Other: Voiding Method Toilet Toilet Toilet # Voids 2 1 1 - Exam Constitutional: No acute distress, conversant Eyes:Anicteric sclerae, moist conjunctiva, no lid-lag, PERRLA, ENMT: Oropharynx clear, no erythema, exudates Neck: Supple, FROM, no masses, or JVD, No carotid bruits, No thyromegaly Lungs: Clear to auscultation, Clear to percussion, Normal respiratory effort, no accessory muscle use Cardiovascular: Heart regular in rate and rhythm, No murmurs, gallops, or rubs, No peripheral edema Abdominal: Soft, Nontender, no guarding, rebound or rigidity, Normoactive bowel sounds, No hepatomegaly, No splenomegaly, No palpable mass Skin: Normal temperature, tone, texture, turgor, no induration, No subcutaneous nodules, No rash, lesions, No ulcers Extremities: No digital cyanosis, No clubbing, Pedal pulses intact and symmetrical, Radial pulses intact and symmetrical, No calf tenderness Psychiatric: Alert and oriented to person, place and time, low affect. Frequently tearful Neuro: Right-sided weakness, right arm spasms, Cranial nerves II-XII grossly intact, no focal sensory deficits - Labs CBC & Chem 7: 12/22/20 12:59 12/22/20 12:59 Assessment and Plan Plan: Visual deficits: Right sided weakness and spasms as well as hyperreflexia by hx: Ophthalmology evaluation did not reveal any abnormalities to the bedside exam Patient will undergo brain MRI as well as MRA of the head and neck. D/w RN, trying to get records from [facility] regarding the aneurysm coils to see if they are compatible with MRI. Neurology following, D/w Dr. Pool Psychiatry following, added depakote for mood stabilization. Essential hypertension Stable Hold meds for now Anticipated discharge: 2 days Disposition: Home
--- NOTE | 2020-12-24 14:21 | P.PN ---
Progress Note - Text Progress Note Date: 12/24/20 Interval History: Patient was seen today for psychiatric follow-up regarding patient's psychiatric condition and mood. Patient appeared to be up and walking to the bathroom prior to chief writer coming into the room and appeared to have an improvement in her affect today. She claims that her eye has been doing mildly better since yesterday. She denied any overnight complaints in claims that she feels "about the same" since yesterday. She states that she feels her mood is mildly more stable how ever when chief writer spoke to her more about her condition patient began once again crying. She claims that "it's hard for me to stop" referring to her crying. She states that she is not feeling depressed and is feeling more optimistic today. She is denying any anxiety. She states she slept approximately 6 hours last night. Patient claims that she'll be going for the MRI and other imaging studies today. She claims that she is able to walk better today and has better balance. At this time patient denies any suicidal or homical ideations, intent or plan. Patient denies any auditory, visual hallucinations and denies any paranoia or delusions. Patient denies any side effects from the medications and has been compliant with meds. Mental Status Exam: General Appearance: Patient appears to be stated age is alert, attempts to be cooperative. Patient appears to have improving hygiene and grooming wearing hospital gown with fair eye contact. Uses a walker. Behavior: Patient is attending to cooperate and is not agitated however is tearful and labile, improving mildly. Speech: Patient's speech is fluent and nonpressured. Mood/Affect: Patient reports their mood is "a bit better", affect is congruent and labile, improving mildly Suicidality/Homicidality: Patient denies having any suicidal or homicidal ideation intent or plan. Perceptions: Patient denies any visual hallucinations and denies any auditory hallucinations Though content/process: There is no evidence of any delusional thought content and thought process is linear and goal-directed. Memory and concentration: AOX3, grossly intact for the purposes of this session Judgment and insight: fair Assessment Mood disorder unspecified, rule out secondary to a general medical condition Nicotine dependence Plan: -At this time patient DOES NOT meet criteria for inpatient psychiatric admission. -Will await MRI and further studies as ordered by neurology to rule out conversion disorder as this is unlikely given patients symptoms, history and exam findings. -Would recommend the following medication changes/additions: Increased Depakote 500 mg 2 times a day for mood stabilization. Melatonin 5 mg daily at bedtime for sleep. -track worker to provide patient with outpatient mental health/psychiatry resources for appropriate follow up upon discharge -Communicated plan to patient's nurse -Will continue to follow along -Please contact with any questions.
--- NOTE | 2020-12-24 16:31 | MR ---
EXAMINATION TYPE: MR angio head wo con DATE OF EXAM: 12/24/2020 COMPARISON: None HISTORY: Visual disturbance CONTRAST: None TECHNIQUE: Multiplanar multiecho imaging on a 3.0 Carmen magnet is performed through the [place]. 3-D [id number] imaging is performed. Source images are reviewed on the computer in the axi al plane. Reconstructed images rotating on the computer are reviewed. FINDINGS: The internal carotid arteries bifurcate normally into A1 and M1 segments. The right A1 segm ent is hypoplastic There is a dominant A2 segment. Middle cerebral artery branches are normal. Anterior communicating artery is patent. The right posterior communicating artery is patent. The left posterior communicating artery is patent. Vertebrobasilar arteries within the [id number] are normal. Posterior cerebral vasculature is norm al. No suspicious aneurysm or aneurysmal dilatation is evident. No obstructions are identified. No significant flow-limiting stenosis is evident. IMPRESSIONS: 1. NORMAL MRA [place] OF [place].
[2020-12-24] MEDS: HYDROcodone/APAP 5-325MG 1 EACH TAB PO PRN ×2 (17:10→23:41)
[2020-12-24] MEDS: SODIUM CHLORIDE 0.9% 1,000 ML IV SCH (17:16)
--- NOTE | 2020-12-24 19:22 | MR ---
EXAMINATION TYPE: MR brain/cspine wo DATE OF EXAM: 12/24/2020 COMPARISON: None HISTORY: Visual disturbance Multiplanar multiecho imaging of the brain and cervical spine was performed without contrast. FINDINGS: There is metal artifact which obscures detail of the upper brainstem. Ventricles are top normal in si ze. There is no mass effect nor midline shift. There is no sign of intracranial hemorrhage. There is cerebral foci of increased signal on the diffusion images in the [place] and white matter of the right o ccipital lobe posterior to the occipital horn right lateral ventricle that are consistent with acute infarcts. This area overall measures 2 x 1 cm. There is some mild thinning of the corpus callosum. There is no evidence of brainstem mass. Sella tur cica appears normal. Cervical vertebra have normal alignment. There is disc space narrowing at C4-5 and C5-6 small posteri or disc herniation and bulging spinal canal measures 7.2 mm at C5-6. Canal measures 8 mm at C4-5. The re is posterior mild disc bulging and herniation at C3-4 with spinal canal measuring 8.5 mm. Cervical spinal cord has normal signal pattern. There is no edema. Facet joints are intact. IMPRESSION: Multilevel posterior cervical disc herniation without significant spinal cord impingement. No fractur e. There is evidence for acute infarct right occipital lobe.
[2020-12-24] MEDS: MELATONIN 5 MG TABLET PO SCH (21:55)
[2020-12-24] MEDS: ATORVASTATIN 40 MG TAB PO SCH (21:55)
[2020-12-24] MEDS: DIVALPROEX 500 MG TABLET.DR PO SCH (21:55)
[2020-12-24] MEDS: lisinopriL 20 MG TAB PO SCH (22:24)
[2020-12-24] MEDS: CLOPIDOGREL 75 MG TAB PO SCH (22:24)
[2020-12-25] MEDS ORDERED: hydrALAZINE HCL 25 MG TAB PO STA (04:30)
[2020-12-25] MEDS: SODIUM CHLORIDE 0.9% 1,000 ML IV SCH (04:44)
--- NOTE | 2020-12-25 09:01 | P.PN ---
Subjective Progress Note Date: 12/25/20 Principal diagnosis: visual field defect Patient continues to be tearful and anxious about what is happening with her. States that she continues to have the visual deficits but her vision has improved. No double vision or slurred speech. No new weakness or numbness.. Objective - Vital Signs Vital signs: Vital Signs Temp 98.6 F 12/25/20 03:44 Pulse 70 12/25/20 03:44 Resp 16 12/25/20 03:44 BP 151/82 12/25/20 03:44 Pulse Ox 97 12/25/20 03:44 Intake & Output 12/24/20 12/25/20 12/25/20 18:59 06:59 18:59 Intake Total 382 Balance 382 Weight 86.2 kg Intake: Intake, IV Titration 160 Amount Sodium Chloride 0.9% 1, 160 000 ml @ 20 mls/hr IV . Q24H [facility] Rx#:[id number] Oral 222 Other: Voiding Method Toilet Toilet # Voids 3 1 - Exam Constitutional: No acute distress, conversant Eyes:Anicteric sclerae, moist conjunctiva, no lid-lag, PERRLA, ENMT: Oropharynx clear, no erythema, exudates Neck: Supple, FROM, no masses, or JVD, No carotid bruits, No thyromegaly Lungs: Clear to auscultation, Clear to percussion, Normal respiratory effort, no accessory muscle use Cardiovascular: Heart regular in rate and rhythm, No murmurs, gallops, or rubs, No peripheral edema Abdominal: Soft, Nontender, no guarding, rebound or rigidity, Normoactive bowel sounds, No hepatomegaly, No splenomegaly, No palpable mass Skin: Normal temperature, tone, texture, turgor, no induration, No subcutaneous nodules, No rash, lesions, No ulcers Extremities: No digital cyanosis, No clubbing, Pedal pulses intact and symmetrical, Radial pulses intact and symmetrical, No calf tenderness Psychiatric: Alert and oriented to person, place and time, low affect. Frequently tearful Neuro: Right-sided weakness, right arm spasms, Cranial nerves II-XII grossly intact, no focal sensory deficits - Labs CBC & Chem 7: 12/22/20 12:59 12/22/20 12:59 Assessment and Plan Plan: Visual deficits: Right sided weakness and spasms as well as hyperreflexia by hx: Ophthalmology evaluation did not reveal any abnormalities to the bedside exam Brain MRI ok MRA brain ok MRI neck showed spinal stenosis and some degenerative changes that could explain her right sided weakness according to discussion with ortho. Ortho suggesting steroids, will initiate According to ortho patient can benefit from surgical decompression of the cervical spine Neurology following Psychiatry following, added depakote for mood stabilization. Essential hypertension Stable Hold meds for now D/W ortho Anticipated discharge: 2 days Disposition: Home
[2020-12-25] MEDS: FAMOTIDINE 20 MG TAB PO SCH ×2 (09:02→20:15)
[2020-12-25] MEDS: DIVALPROEX 500 MG TABLET.DR PO SCH ×2 (09:03→20:15)
[2020-12-25] MEDS: CLOPIDOGREL 75 MG TAB PO SCH (09:03)
[2020-12-25] MEDS: hydroCHLOROthiazide 25 MG TAB PO SCH (09:03)
[2020-12-25] MEDS: ASPIRIN 81 MG PO SCH (09:03)
[2020-12-25] MEDS: PHENYLEPHRINE 2.5% OPHTH DRP 2ML BOTH EYES SCH (09:04)
--- NOTE | 2020-12-25 10:57 | P.CNOR ---
History of Present Illness - [facility] Consult date: 12/25/20 Requesting physician: Colt Pool Consult reason: other (Right arm contracture, hyperreflexia. Spinal stenosis) History of present illness: Giana is a 50-year-old female with a history of depression presenting with right arm contracture, hyperreflexia. Cervical MRI demonstrates spinal stenosis throughout the cervical spine. Upon entering room patient is walking back to bed and gait seems unsteady. Upon giving news to patient that surgery may help solve right arm issue patient begins to cry. Patient is very emotional throughout the consultation. She mentions on October 01, 3 months ago, her mother and it has been very tough for her since then. Patient says her vision difficulties. She says she sees at [facility] through her visual field. She mentions the right arm issue has been progressively getting worse. Patient has been seen by neurology and internal medicine Review of Systems Denies fever, chills, shortness of breath, chest pain. Positive for right arm weakness, contracture, hyperreflexia Past Medical History Past Medical History: Hypertension Additional Past Medical History / Comment(s): Brain aneurysm 17 coils and 3 stents History of Any Multi-Drug Resistant Organisms: None Reported Additional Past Surgical History / Comment(s): brain coil. Past Psychological History: No Psychological Hx Reported Smoking Status: Current every day smoker Past Alcohol Use History: None Reported Past Drug Use History: None Reported Medications and Allergies Home Medications Medication Instructions Recorded Confirmed Type [id number] 2 tab PO QID PRN 12/22/20 12/22/20 History [Excedrin] Famotidine 20 mg PO BID 12/22/20 12/22/20 History hydroCHLOROthiazide [Hydrodiuril] 25 mg PO DAILY 12/22/20 12/22/20 History lisinopriL 40 mg PO HS 12/22/20 12/22/20 History Allergies Allergy/AdvReac Type Severity Reaction Status Date / Time adhesive Allergy Rash/Hives Verified 12/22/20 12:42 Sulfa (Sulfonamide Allergy Rash/Hives Verified 12/22/20 12:42 Antibiotics) Physical Examination Right arm will not extend upon examination, and is held in flexion by patient. Patient is able to wiggle toes bilaterally. Pulses are intact 2+ radial, ulnar. Results - Labs Labs: H & H 12/22/20 Range/Units 12:59 Hgb 14.5 (11.4-16.0) gm/dL Hct 41.7 (34.0-46.0) % Coagulation 12/22/20 Range/Units 12:59 INR 0.9 (<1.2) Result Diagrams: 12/22/20 12:59 12/22/20 12:59 Assessment and Plan Assessment: 1. Cervical stenosis, C3-C4, C4-5-C5, C5-C6, C6-C7 2. Right arm weakness 3. Depression Plan: 1. Cervical stenosis, C3-C4, C4-5-C5, C5-C6, C6-C7 - schedule ACDF surgery tentatively; follow-up in outpatient setting 2. Right arm weakness - order course of steroids; 3. Depression - followed by psych 4. Medical management - patient being followed by neurology and internal medicine 5. PT/OT 6. Pain management - stable at this time 7. Ambulation protocol - Time with Patient: Less than 30
[2020-12-25] MEDS ORDERED: fentaNYL (PF) 50 MCG/ML 2 ML AMP ONE (11:17)
[2020-12-25] MEDS ORDERED: IV FLUID CONTINUATION 1,000 ML IV ONE (11:20)
[2020-12-25] MEDS ORDERED: fentaNYL (PF) 50 MCG/ML 2 ML AMP IV ONE (11:35)
[2020-12-25] MEDS ORDERED: MIDAZOLAM 2 MG/2 ML VIAL IV ONE (11:35)
[2020-12-25] MEDS ORDERED: BENZOCAINE SPRAY 1 CAN MUCOUS MEM ONE (11:35)
--- NOTE | 2020-12-25 11:50 | P.CNOR ---
History of Present Illness - HPI Consult date: 12/25/20 Consult reason: other (RUE weakness) History of present illness: 50 yo female presented to hospital with weakness in her RUE and RLE for several weeks now. She presented to the hospital with c/o visual field defects and schwartz spots. Neurology and opthomology evaluated her. Findings of hyperreflexia in LE as well as UE with weakness in RUE and RLE noted. No signs of TIA or CVA for the patient. MRI of the C spine shows stenosis without myelomalacia of C3-6 which could be the cause of some of her symptoms. She is very labile in the room as her mother just recently. She states she wants to go home, but is happy that we are finding something with regards to her weakness. She denies any bowel or bladder issues. States no perineal numbness/tingling. States no other orthopedic issues. Denies f/c/sob/cp at this time. Review of Systems 14 points review of systems completed and as stated in HPI, all other systems reviewed are negative. Past Medical History Past Medical History: Hypertension Additional Past Medical History / Comment(s): Brain aneurysm [address] History of Any Multi-Drug Resistant Organisms: None Reported Additional Past Surgical History / Comment(s): brain coil. Past Psychological History: No Psychological Hx Reported Smoking Status: Current every day smoker Past Alcohol Use History: None Reported Past Drug Use History: None Reported Medications and Allergies Home Medications Medication Instructions Recorded Confirmed Type [id number] 2 tab PO QID PRN 12/22/20 12/22/20 History [Excedrin] Famotidine 20 mg PO BID 12/22/20 12/22/20 History hydroCHLOROthiazide [Hydrodiuril] 25 mg PO DAILY 12/22/20 12/22/20 History lisinopriL 40 mg PO HS 12/22/20 12/22/20 History Allergies Allergy/AdvReac Type Severity Reaction Status Date / Time adhesive Allergy Rash/Hives Verified 12/22/20 12:42 Sulfa (Sulfonamide Allergy Rash/Hives Verified 12/22/20 12:42 Antibiotics) Physical Examination Osteopathic Statement: *. No significant issues noted on an osteopathic structural exam other than those noted in the History and Physical/Consult. PHYSICAL EXAMINATION: Vitals: Stable General: Awake, alert, appropriate for age, in no acute distress. HEENT: No unusual neck masses around region of lateral neck triangle, thyroid, supraclavicular groove. Extremities: Skin warm and dry without no acute lesions, coloration, temperature, skin intact, no tenderness or erythema. Integument: Hairy patches: Absent Dorsal skin dimples: Absent Cafe au lait spots: Absent Surgical incisions: NO back or neck incisions noted Palpation: Please see Pain drawing on Intake sheet for further detail. (Tenderness = T, Nontender = NT, Swelling = S, Ecchymosis = E) Findings on Midline and paraspinal palpation and percussion: Cervical: NT Thoracic: NT Lumbar: NT Sacral: NT Special findings: None POSTURAL and MUSCULO-SKELETAL EVALUATION: Neck ROM: [Unrestricted in six directions] Lumbar ROM: [Unrestricted in six directions] Shoulder ROM: Symmetric in abduction, ER/IR Hip ROM: Symmetric in abduction, adduction, ER/IR Knee ROM: Symmetric and intact in Flexion / extension, weakness noted in RLE Hands: Normal appearing structure L and R, she holds her right hand in a contracted position with flexion at the wrist and DIP and PIP joints. She has significant intrinsic weakness. Feet: Normal appearing structure L and R VASCULAR STATUS : Wrist Pulses: [2/4 bilateral radial and ulnar] Pedal Pulses: [2/4 bilateral DP and PT] Color: [Normal] Edema: [None] NEUROLOGIC EXAMINATION: Mental Status: Awake and alert, fully oriented, with normal attention, concentration and memory, and fluent, appropriate speech. Cranial Nerves: I: Olfactory not tested. II: Visual acuity normal, no visual field deficit noted with confrontation. III,IV: Normal pupillary reflexes & intact extraocular movements without nystagmus. V,: Intact symmetrical facial sensation. VII: Intact symmetrical facial motor movement VIII: Hearing intact. IX,X: Intact gag, swallow, & normal voice. XI: Sternocleidomastoid, trapezius function intact. XII: Tongue midline with normal movements. Special Tests: L'hermitte's Sign: Absent Spurling'Sign: Absent Bilateral Cubital percussion test: Absent Bilateral Jamel-Tinel sign - Carpal region: Absent Bilateral Straight Leg Raising: Absent Bilateral Motor Exam (0-5/5, N/T) STRENGTH UPPER EXTREMITY Shoulder Abd (Not part of NABEEL Motor score): RIGHT [2] LEFT [5] Elbow Flexors: RIGHT [3] LEFT [5] Elbow Extensor: RIGHT [3] LEFT [5] Wrrist Dorsiflexors: RIGHT [3] LEFT [5] Finger Abductor: RIGHT [2] LEFT [5] Manager Produce: RIGHT [2] LEFT [5] LOWER EXTREMITY Hip Flexor (Not part of NABEEL Motor Score): RIGHT [4] LEFT [5] Knee Flexor: RIGHT [4] LEFT [5] Knee Extensor: RIGHT [3] LEFT [5] Ankle Dorsiflexion: RIGHT [3] LEFT [5] Ankle Plantarflexion: RIGHT [3] LEFT [5] EHL: RIGHT [4] LEFT [5] FHL: RIGHT [4] LEFT [5] RLE shows weakness in most facets. As well as RUE. She does hold her RUE in a contracted position with wrist flexion and finger flexion but is not quite related to Erb's palsy or Klumpke's palsy as it seems more global. She has not had a recent illness or viral infection and so this makes [place] less likely as she does not have the pain related to this dx either. REFLEXES Biecp: RIGHT [3] LEFT [2] Tricep: RIGHT [3] LEFT [2] Brachioradialis: RIGHT [3] LEFT [2] Patellar: RIGHT [3] LEFT [3] Achilles: RIGHT [3] LEFT [3] Pathological Reflexes Sage's: RIGHT [Absent] LEFT Present Babinski: RIGHT [Absent] LEFT [Absent] Clonus: RIGHT None LEFT 5 beats SENSORY Joint Position: [Intact bilaterally] Vibration [Intact bilaterally] Pain and LT sense [Intact C5-T1 and L2-S1] Except for the Right she does have subjective deficits to LT in C5-7. Dermatomal deficit Right UE C5-6 and some 7. Gait and Functional Evaluation: Ambulatory aids: Walker currently. Observed the patient walking back from bathroom with an antalgic gait due to weakness and limited RUE use. Romberg's test: Intact bilaterally. Not able to Toe walk/ heel walk / heel-toe walk intact while maintaining satisfactory balance. Not able to perform Squatting and straightening out without assistance to a minimum of 60 degrees knee flexion Not able to Single leg stance: / Trendelenburg sign positive bilaterally Hand and finger dexterity intact on the left but not on the right. Disdiadochokinesis examination negative[] on the left positive on the right Results MRI of the C spine shows cervical stenosis without myelomalacia changes from C3- 6 with broad based disc protrusions causing cord effacement. There is spondylosis at these levels as well. C0-1 and C1-2 joints are stable. There are no fractures or dislocations noted. - Labs Labs: H & H 12/22/20 Range/Units 12:59 Hgb 14.5 (11.4-16.0) gm/dL Hct 41.7 (34.0-46.0) % Coagulation 12/22/20 Range/Units 12:59 INR 0.9 (<1.2) Result Diagrams: 12/22/20 12:59 12/22/20 12:59 Assessment and Plan Assessment: 1. RUE weakness 2. RLE weakness 3. 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 Mood disorder 6. Anxiety 7. Complex medical patient Plan: -Appreciate medicine management. -appreciate neurology consult and input -Start Decadron one-time dose 10 mg followed by 4 mg every 6h -Pain control: [adequate at this time] -Aggressive ambulation protocol. OOB with all meals. OOB or in chair 4-5x daily. -PT/OT -TEDs, SCDs, mechanical ppx. OK for heparin today. Early ambulation is best. -GI ppx. -Trend labs. I discussed at length with the patient clinical signs and symptoms with this patient as well as her MRI findings. She does have stenosis noted from C3 to C6 without myelopathic or myelomalacia changes on MRI. She however does have fairly significant right upper extremity weakness as well as right lower extremity weakness she is hyperreflexic in her lower extremities as well as her upper extremities and she does exhibit a German sign on the left-hand side. She is extremely lachrymose in the room however and she is extremely labile at this time. she states that she wants to go home if she can. Is difficult to de termine how much of her symptoms are coming from her cervical spine but is is very likely that her stenosis is causing a degree of her weakness and her instability with gait as well as her difficulty with ambulation. She would need a C3 to C6 decompression and fusion in order to address this. This was discussed with the patient however I am unsure that she understands completely what this entails. We will start her on Decadron to see if there is any improvement with this I will discuss further with neurology as well as her primary team to assess the best way to proceed with her best interest in mind. Time with Patient: Greater than 30
--- NOTE | 2020-12-25 13:05 | CT ---
Report is EXAMINATION TYPE: CT cervical spine wo con DATE OF EXAM: 12/25/2020 COMPARISON: HISTORY: right side weakness CT DLP: 580.[address] of the cervical spine was performed with bone and soft tissue window settings submitted . Coronal and sagittal reconstruction is obtained. C2-3: Within normal limits C3-4: Mild degenerative disc disease with posterior disc bulge. Mild effacement ventral thecal sac. N o evidence for central stenosis or john herniation. C4-5: Moderate degenerative disc space narrowing with posterocentral small herniation and encapsulati ng spur resulting in disc endplate complex. There is effacement of the ventral thecal sac and mild ce ntral stenosis. There is hypertrophic change of the cervical apophyseal joints resulting in bilateral foraminal encroachment at least moderate in degree. C5-6:Moderate degenerative disc space narrowing with posterocentral small herniation and encapsulatin g spur resulting in disc endplate complex. There is effacement of the ventral thecal sac and mild wilbert tral stenosis. There is hypertrophic change of the cervical apophyseal joints resulting in bilateral foraminal encroachment at least moderate in degree. C6-7: Within normal limits C7-T1: within normal limits IMPRESSION: 1. Degenerative disc disease. 2. Central stenosis at C4-5 and C5-6. See above.
--- NOTE | 2020-12-25 13:13 | P.CRDCN ---
History of Present Illness Consult date: 12/25/20 History of present illness: HISTORY OF PRESENT ILLNESS: This is a 50-year-old female with a past medical history significant for cardiac murmur as a child, hypertension, and brain aneurysm with coiling completed at [facility] in [place] in June 2020. 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 We have been asked to see the patient in consultation for ANSELMO. Patient examined at the bedside. patient initially presented to the hospital secondary to vision changes. Patient states she has been seen a "holguin blob" since Tuesday. She states if she covers either eye she can see see a holguin blob but it is more prominent on the left side. She also reports right-sided weakness for the last 2-3 months. She denies any chest pain or pressure. She denies shortness of breath. EKG reveals normal sinus rhythm without signs of acute ischemia Chest xray mild hyperinflation may relate to depth of inspiration or underlying emphysema. Otherwise no acute process. MRI of the brain and cervical spine: multilevel posterior cervical disc hernia tion without significant spinal cord impingement. No fracture. Evidence for acute infarct right occipital lobe. addendum added to report states focus of increased signal within the left thalamus compatible with tiny acute insult. Laboratory data: WBC 10.5. Hemoglobin 14.5. Platelet count 429. Sodium 134. Potassium 4.6. BUN 13. Creatinine 0.69. troponin negative 1. TSH 1.320. Current home cardiac medications include lisinopril 40 mg daily and hydrochlorothiazide 25 mg daily Most recent echocardiogram obtained on 12/23/2020 revealed ejection fraction 60- 65%, mild aortic stenosis, mild tricuspid regurgitation, and mild pulmonary hypertension. REVIEW OF SYSTEMS: At the time of my exam: CONSTITUTIONAL: Denies fever or chills. HEENT: reports vision changes. Denies blurred vision or eye pain. Denies hemoptysis CARDIOVASCULAR: Denies chest pain. Denies orthopnea. Denies PND. Denies palpitations RESPIRATORY: Denies shortness of breath. GASTROINTESTINAL: Denies abdominal pain. Denies nausea or vomiting. HEMATOLOGIC: Denies bleeding disorders. GENITOURINARY: Denies any blood in urine. SKIN: Denies pruitis. Denies rash. PHYSICAL EXAM: VITAL SIGNS: Reviewed. GENERAL: Well-developed in no acute distress. HEENT: Head is normocephalic. Pupils are equal, round. Sclerae anicteric. Mucous membranes of the mouth are moist. Neck supple. No JVD or thyromegaly LUNGS: Respirations even and unlabored. Lungs essentially clear to auscultation bilaterally. HEART: Regular rate and rhythm. S1 and S2 heard. ABDOMEN: Soft. Nondistended. Nontender. EXTREMITIES: Normal range of motion. No clubbing or cyanosis. Peripheral pulses intact. No lower extremity edema NEUROLOGIC: Awake and alert. Oriented x 3. ASSESSMENT: Acute vision changes Right sided weakness x 3 months History of brain aneurysm with coiling, June 2020 Acute infarct right occipital lobe Hypertension History of cardiac murmur as a child Cervical stenosis Nicotine dependence, patient smokes 1 pack per day PLAN: Monitor blood pressure Continue home cardiac medications Continue telemetry monitoring Neurology following. ANSELMO has been requested by Neurology. Discussed with patient who is agreeable to undergoing ANSELMO today. Patient will have ANSELMO performed today with Dr. Del Rio Further recommendations pending patient course Nurse practitioner note has been reviewed by physician. Signing provider agrees with the documented findings, assessment, and plan of care. Past Medical History Past Medical History: Hypertension Additional Past Medical History / Comment(s): Brain aneurysm 17 coils and 3 stents History of Any Multi-Drug Resistant Organisms: None Reported Additional Past Surgical History / Comment(s): brain coil. Past Psychological History: No Psychological Hx Reported Smoking Status: Current every day smoker Past Alcohol Use History: None Reported Past Drug Use History: None Reported Medications and Allergies Home Medications Medication Instructions Recorded Confirmed Type [id number] 2 tab PO QID PRN 12/22/20 12/22/20 History [Excedrin] Famotidine 20 mg PO BID 12/22/20 12/22/20 History hydroCHLOROthiazide [Hydrodiuril] 25 mg PO DAILY 12/22/20 12/22/20 History lisinopriL 40 mg PO HS 12/22/20 12/22/20 History Allergies Allergy/AdvReac Type Severity Reaction Status Date / Time adhesive Allergy Rash/Hives Verified 12/22/20 12:42 Sulfa (Sulfonamide Allergy Rash/Hives Verified 12/22/20 12:42 Antibiotics) Physical Exam Vitals: Vital Signs Temp Pulse Resp BP Pulse Ox 12/25/20 11:44 81 16 128/75 99 12/25/20 11:40 80 16 134/85 95 12/25/20 11:35 84 14 142/85 98 12/25/20 08:00 79 16 132/80 96 12/25/20 03:44 98.6 F 70 16 151/82 97 12/25/20 02:00 81 18 12/24/20 23:51 98.0 F 81 18 158/102 96 12/24/20 21:46 147/97 12/24/20 20:50 98.6 F 80 20 159/80 95 12/24/20 20:00 80 20 12/24/20 19:47 98.5 F 89 18 158/92 95 12/24/20 17:09 95 16 12/24/20 16:00 96.9 F L 95 16 169/86 96 12/24/20 13:34 82 16 Intake and Output 12/24/20 12/25/20 12/25/20 22:59 06:59 14:59 Intake Total 382 75 Balance 382 75 Intake: IV 75 Intake, IV Titration 160 Amount Sodium Chloride 0.9% 1, 160 000 ml @ 20 mls/hr IV . Q24H [facility] Rx#:[id number] Oral 222 0 Other: Voiding Method Toilet Toilet # Voids 3 1 Weight 86.2 kg Results 12/22/20 12:59 12/22/20 12:59 Current Medications Generic Name Dose Route Start Last Admin Trade Name Freq PRN Reason Stop Dose Admin Hydrocodone Bitart/Acetaminophen 1 each 12/23/20 20:11 12/24/20 23:41 Hydrocodone/Apap 5-325mg 1 Each Tab PO 1 each Q6HR PRN Administration Pain Artificial Tears 1 drops 12/23/20 09:00 Artificial Tears-Hypromellose Drops 15 Ml Btl BOTH EYES QID PRN Dry Eye(s) Aspirin 81 mg 12/23/20 12:00 12/25/20 09:03 Aspirin 81 Mg PO 81 mg DAILY ROSE MARIE Administration Atorvastatin Calcium 40 mg 12/23/20 21:00 12/24/20 21:55 Atorvastatin 40 Mg Tab PO 40 mg HS ROSE MARIE Administration Clopidogrel Bisulfate 75 mg 12/24/20 20:15 12/25/20 09:03 Clopidogrel 75 Mg Tab PO 75 mg DAILY ROSE MARIE Administration Divalproex Sodium 500 mg 12/24/20 21:00 12/25/20 09:03 Divalproex 500 Mg Tablet.Dr PO 500 mg BID ROSE MARIE Administration Famotidine 20 mg 12/22/20 21:00 12/25/20 09:02 Famotidine 20 Mg Tab PO 20 mg BID ROSE MARIE Administration Hydrochlorothiazide 25 mg 12/23/20 09:00 12/25/20 09:03 Hydrochlorothiazide 25 Mg Tab PO 25 mg DAILY ROSE MARIE Administration Sodium Chloride 1,000 mls @ 20 mls/hr 12/22/20 17:00 12/25/20 04:44 Saline 0.9% IV 20 mls/hr .Q24H ROSE MARIE Administration Lisinopril 40 mg 12/24/20 22:00 12/24/20 22:24 Lisinopril 20 Mg Tab PO 40 mg Q24H ROSE MARIE Administration Melatonin 5 mg 12/23/20 21:00 12/24/20 21:55 Melatonin 5 Mg Tablet PO 5 mg HS ROSE MARIE Administration Naloxone HCl 0.2 mg 12/22/20 18:09 Naloxone 0.4 Mg/Ml 1 Ml Vial IV Q2M PRN Opioid Reversal Phenylephrine HCl 1 drops 12/23/20 09:00 12/25/20 09:04 Phenylephrine 2.5% Ophth Drp 2ml BOTH EYES 1 drops DIRECTED ROSE MARIE Administration Intake and Output 12/24/20 12/25/20 12/25/20 22:59 06:59 14:59 Intake Total 382 75 Balance 382 75 Intake: IV 75 Intake, IV Titration 160 Amount Sodium Chloride 0.9% 1, 160 000 ml @ 20 mls/hr IV . Q24H ROSE MARIE Rx#:[id number] Oral 222 0 Other: Voiding Method Toilet Toilet # Voids 3 1 Weight 86.2 kg 12/22/20 12:59 12/22/20 12:59
--- NOTE | 2020-12-25 13:18 | P.PN ---
Subjective Progress Note Date: 12/25/20 The patient was seen at bedside and she stated that she continues to have some grayish circular spots over the left side of both eyes and she feels its right in that basically centered over the entire left side. She does state that there is improvement compared to her initial presentation as in that shrinkage of the size. She denies of any new weakness, numbness or difficulty getting her words out. MRI of the brain is reported as evidence of acute infarct over right occipital. I personally reviewed and I felt TS there is a acute infarct over the right hospital by also felt there is a small lacunar infarct over the left thalamus. I called the reading radiologist (Dr. Garcia) and he did agree that there is an increased signal within the left thalamus compatible with a tiny acute insult. Regarding the MRI of the cervical spinous reported as multilevel posterior cervical disc herniation without significant spinal cord impingement. No fracture. I personally reviewed it felt there was disc herniation over the C3 over to the C6 but mostly over the C5 to C6 region. I agree there is no visible myelomalacia seen over the MRI. MRA of the head is reported as normal MRA [place]. I posterior reviewed it and I felt it could not be normal since the patient had the basilar aneurysm coil with stenting therefore I contacted that the reading radiologist (Dr. 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 Any felt there is a cough in this region secondary due to artifact. Objective - Vital Signs Vital signs: Vital Signs Temp 98.6 F 12/25/20 03:44 Pulse 81 12/25/20 11:44 Resp 16 12/25/20 11:44 BP 128/75 12/25/20 11:44 Pulse Ox 99 12/25/20 11:44 Intake & Output 12/24/20 12/25/20 12/25/20 18:59 06:59 18:59 Intake Total 382 75 Balance 382 75 Weight 86.2 kg Intake: IV 75 Intake, IV Titration 160 Amount Sodium Chloride 0.9% 1, 160 000 ml @ 20 mls/hr IV . Q24H [facility] Rx#:[id number] Oral 222 0 Other: Voiding Method Toilet Toilet # Voids 3 1 - Labs CBC & Chem 7: 12/22/20 12:59 03/29/21 12:59 Assessment and Plan Assessment: This is a 50-year-old woman that presented to the emergency department on 12/22/2020 with visual disturbance over the left eye. Acute right occipital stroke and left lacunar left thalamus stroke (seeing schwartz spot over bilateral left side with slight improvement). One of the possibilities is due to embolic (cardioembolic). Cannot rule out result of aneurysm (baslilar aneurysm s/p coiling with stenting) impingement/possibly lack of circulation to region. 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 Moderate Cervical spondylosis (C3-C6) is cause of residual right-sided weakness with increased tone which has been present since August 2020 or September 2020 (Her weakness over the right side is not conversion) Hypertension Mood disorder unspecified (has chronic stress) Plan: CT of the head is reported as age-related atrophic and chronic small vessel ischemic change without acute intracranial process seen at this time. Extensive streak artifact from aneurysm clipping limits portion of the study. Upon reviewing its is seems in the basilar tip aneurysm status post coiling not clipping. I reviewed it with the reading radiologist and he did agree that he felt was in the basilar tip aneurysm in the from the past and he will he felt was more coiling over clipping. CTA head and neck is reported as no significant diameter reduction to account for the patient's symptoms. CT angiography [place] with 3-D recon struction. Examination is nondiagnostic given the extensive streak artifact from the prior aneurysm clipping. MRI of the brain is reported as evidence of acute infarct over right occipital. I personally reviewed and I felt TS there is a acute infarct over the right hospital by also felt there is a small lacunar infarct over the left thalamus. I called the reading radiologist (Dr. Garcia) and he did agree that there is an increased signal within the left thalamus compatible with a tiny acute insult. Regarding the MRI of the cervical spinous reported as multilevel posterior cervical disc herniation without significant spinal cord impingement. No fracture. I personally reviewed it felt there was disc herniation over the C3 over to the C6 but mostly over the C5 to C6 region. I agree there is no visible myelomalacia seen over the MRI. MRA of the head is reported as normal MRA [place]. I posterior reviewed it and I felt it could not be normal since the patient had the basilar aneurysm coil with stenting therefore I contacted that the reading radiologist (Dr. 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 Any felt there is a cough in this region secondary due to artifact. Lipid panel: Triglyceride 102, cholesterol 155, LDL is 73 and HDL 62. Goal in strokes is LDL is less than 70. TSH is 1.32 which is normal. Hemoglobin A1c is 4.8 which is also considered normal. Continue aspirin 81 mg, Plavix 75mg daily and Lipitor 40 mg for secondary stroke prophylaxis. 2-D echo: It is reported as moderate concentric left ventricular hypertrophy. Overall left ventricle systolic function is normal with ejection fraction of 60- 65%. There is a mild aortic stenosis present. Mild pulmonary hypertension. Normal left atrial size by volume. I consulted cardiology for transesophageal echocardiogram I ordered SMITH, anti-thrombin 3 antigen activity, factor V Leiden mutation, homocystine level, lupus anticoagulant, MTHFR genotype, Protein C/S antigen and activity. Patient to obtain factor VII and 8 factors as an outpatient and the rest of the hypercoagulable workup as an outpatient. Continue cardiac monitoring. Physical therapy and occupation therapy I consulted orthopedic team regarding her cervical stenosis and I spoke to Dr. Tran in detail regarding the case. And that he recommends for the patient to be started on Decadron and possibly at C3 to C6 decompression and fusion. Psychiatric team felt the patient and they felt the patient had the mood disorder unspecified. Ophthamology team (Dr. Dunne) evaluate the patient and he felt that the patie nt's visual deficit is possibly posterior chiasmal defect Please avoid any hypotensive episode and keep the blood pressure normotensive and we'll defer the management to the primary team. We'll defer the rest of medical management to the primary team. Patient would like a different referral for neurosurgeon: Recommend Maxime Haynes over at [facility], [address] [place] [address], [address], [place] [address]. [phone] I recommend the patient to get a repeated diagnostic cerebral angiogram to assess the aneurysm status post coiling and stent as outpatient (recommend within 1-2 weeks). Regarding a referral to neurologist: Possibly consider Dr. Giana John, [address] [address], [place] [address]. [phone]. The plan is discussed with the patient's nurse, primary team and orthopedics. Colt Pool M.D. Neuro-hospitalist Time with Patient: Less than 30
--- NOTE | 2020-12-25 14:15 | ECHOT ---
TRANSESOPHAGEAL ECHOCARDIOGRAM INDICATION: CVA. PROCEDURE NOTE: After obtaining informed consent, transesophageal echocardiogram is performed in left lateral position using an Omniplane probe. Local and IV sedation were obtained using Xylocaine spray, 2 mg of Versed and 50 mcg of fentanyl. Patient tolerated the procedure well without any obvious immediate complications. Patient received moderate conscious sedation. Total sedation time was 8 minutes. FINDINGS: 1. There is interatrial septum. There is no evidence of [id number] shunt by color- flow Doppler or [id number]-pd-[id number] shunt by agitated saline contrast study. 2. Mitral valve is anatomically normal. There is trace mitral regurgitation noted. 3. Tricuspid valve appears normal. 4. Aortic valve seems to be a bicuspid valve. There is no evidence of aortic stenosis or regurgitation. 5. Aorta shows mild atherosclerotic changes. 6. Left ventricle has normal size and systolic function. 7. Left atrium, right atrium and right ventricle seen within normal limits. 8. We could not clearly visualize the left atrial appendage secondary to off-axis images and somewhat of an uncooperative patient. CONCLUSIONS: No intracardiac thrombus. No evidence of shunting across the interatrial septum. No obvious cardiac source of thromboembolic cerebrovascular accident. MMODL / IJN: [id number] /
[2020-12-25] MEDS: HYDROcodone/APAP 5-325MG 1 EACH TAB PO PRN ×2 (17:57→23:41)
[2020-12-25] MEDS: ATORVASTATIN 40 MG TAB PO SCH (20:15)
[2020-12-25] MEDS: MELATONIN 5 MG TABLET PO SCH (20:15)
[2020-12-25] MEDS: lisinopriL 20 MG TAB PO SCH (20:15)
[2020-12-26 04:32] VITALS: TEMP 97.4
--- NOTE | 2020-12-26 08:21 | P.PN ---
Subjective Progress Note Date: 12/26/20 Principal diagnosis: RUE weakness LE weakness, Gait instability Myelopathy Patient was seen and examined this morning. We had a much better conversation this morning about her clinical signs and symptoms as well as her current problems. She still having fairly profound weakness of her right upper extremity. She is having difficulty with moving her deltoid fire her deltoid as well as the intrinsics of her hand. She does have motion within her biceps on the right however it is very weak. She has weakness and wrist flexion-extension is well still. Patient still exhibits signs of myelopathy with hyperreflexia in her lower extremities. Patient states that she is very unsteady when she walks around. Per nursing she is able to get up on her own and use a walker to go to the bathroom however she does not use her right arm to do so and she is fairly unsteady when she does get up. She denies any bowel or bladder issues. She denies any perineal numbness or tingling. She denies any fevers chills shortness of breath or chest pain at this time. Objective - Vital Signs Vital signs: Vital Signs Temp 97.4 F L 12/26/20 04:00 Pulse 70 12/26/20 04:00 Resp 16 12/26/20 04:00 BP 137/86 12/26/20 04:00 Pulse Ox 96 12/26/20 04:00 Intake & Output 12/25/20 12/26/20 12/26/20 18:59 06:59 18:59 Intake Total 515 604 160 Balance 515 604 160 Weight 76.6 kg Intake: IV 75 Intake, IV Titration 160 160 Amount Sodium Chloride 0.9% 1, 160 160 000 ml @ 20 mls/hr IV . Q24H [facility] Rx#:[id number] Oral 440 444 Other: Voiding Method Toilet # Voids 1 1 - Exam Exam is stable today. She still exhibits the same posturing as well as weakness in the right upper extremity. She still exhibits hyperreflexia in her lower extremities bilaterally as well as her upper extremities. She exhibits a Hoffmans on the left-hand side but not the right. Her sensation is intact in he r lower extremities she does have decreased sensation in the dermatomal patterns over the right upper extremity of the C5-C6 region. She complains of radiculopathy and pain in her right upper extremity that seems to shoot down the lateral aspect of her arm into her hand. I did observe her walking to the bathroom yesterday under her own power but using a walker. She has a very antalgic gait. She does not use her right arm when she is walking. Osteopathic Statement: *. No significant issues noted on an osteopathic structural exam other than those noted in the History and Physical/Consult. PHYSICAL EXAMINATION: Vitals: Stable General: Awake, alert, appropriate for age, in no acute distress. HEENT: No unusual neck masses around region of lateral neck triangle, thyroid, supraclavicular groove. Extremities: Skin warm and dry without no acute lesions, coloration, temperature, skin intact, no tenderness or erythema. Integument: Hairy patches: Absent Dorsal skin dimples: Absent Cafe au lait spots: Absent Surgical incisions: NO back or neck incisions noted Palpation: Please see Pain drawing on Intake sheet for further detail. (Tenderness = T, Nontender = NT, Swelling = S, Ecchymosis = E) Findings on Midline and paraspinal palpation and percussion: Cervical: NT Thoracic: NT Lumbar: NT Sacral: NT Special findings: None POSTURAL and MUSCULO-SKELETAL EVALUATION: Neck ROM: [Unrestricted in six directions] Lumbar ROM: [Unrestricted in six directions] Shoulder ROM: Symmetric in abduction, ER/IR Hip ROM: Symmetric in abduction, adduction, ER/IR Knee ROM: Symmetric and intact in Flexion / extension, weakness noted in RLE Hands: Normal appearing structure L and R, she holds her right hand in a contracted position with flexion at the wrist and DIP and PIP joints. She has significant intrinsic weakness. Feet: Normal appearing structure L and R VASCULAR STATUS : Wrist Pulses: [2/4 bilateral radial and ulnar] Pedal Pulses: [2/4 bilateral DP and PT] Color: [Normal] Edema: [None] NEUROLOGIC EXAMINATION: Mental Status: Awake and alert, fully oriented, with normal attention, concentration and memory, and fluent, appropriate speech. Cranial Nerves: I: Olfactory not tested. II: Visual acuity normal, no visual field deficit noted with confrontation. III,IV: Normal pupillary reflexes & intact extraocular movements without nystagmus. V,: Intact symmetrical facial sensation. VII: Intact symmetrical facial motor movement VIII: Hearing intact. IX,X: Intact gag, swallow, & normal voice. XI: Sternocleidomastoid, trapezius function intact. XII: Tongue midline with normal movements. Special Tests: L'hermitte's Sign: Absent Spurling'Sign: Absent Bilateral Cubital percussion test: Absent Bilateral Jamel-Tinel sign - Carpal region: Absent Bilateral Straight Leg Raising: Absent Bilateral Motor Exam (0-5/5, N/T) STRENGTH UPPER EXTREMITY Shoulder Abd (Not part of NABEEL Motor score): RIGHT [2] LEFT [5] Elbow Flexors: RIGHT [3] LEFT [5] Elbow Extensor: RIGHT [3] LEFT [5] Wrrist Dorsiflexors: RIGHT [3] LEFT [5] Finger Abductor: RIGHT [2] LEFT [5] Tool Trouble Shooter: RIGHT [2] LEFT [5] LOWER EXTREMITY Hip Flexor (Not part of NABEEL Motor Score): RIGHT [4] LEFT [5] Knee Flexor: RIGHT [4] LEFT [5] Knee Extensor: RIGHT [3] LEFT [5] Ankle Dorsiflexion: RIGHT [3] LEFT [5] Ankle Plantarflexion: RIGHT [3] LEFT [5] EHL: RIGHT [4] LEFT [5] FHL: RIGHT [4] LEFT [5] RuE shows weakness in most facets. As well as RlE. She does hold her RUE in a contracted position with wrist flexion and finger flexion but is not quite related to Erb's palsy or Klumpke's palsy as it seems more global. She has not had a recent illness or viral infection and so this makes [place] less likely as she does not have the pain related to this dx either. REFLEXES Biecp: RIGHT [3] LEFT [2] Tricep: RIGHT [3] LEFT [2] Brachioradialis: RIGHT [3] LEFT [2] Patellar: RIGHT [3] LEFT [3] Achilles: RIGHT [3] LEFT [3] Pathological Reflexes Sage's: RIGHT [Absent] LEFT Present Babinski: RIGHT [Absent] LEFT [Absent] Clonus: RIGHT None LEFT 5 beats SENSORY Joint Position: [Intact bilaterally] Vibration [Intact bilaterally] Pain and LT sense [Intact C5-T1 and L2-S1] Except for the Right she does have subjective deficits to LT in C5-7. Dermatomal deficit Right UE C5-6 and some 7. Gait and Functional Evaluation: Ambulatory aids: Walker currently. Observed the patient walking back from bathroom with an antalgic gait due to weakness and limited RUE use. Romberg's test: Intact bilaterally. Not able to Toe walk/ heel walk / heel-toe walk intact while maintaining satisfactory balance. Not able to perform Squatting and straightening out without assistance to a minimum of 60 degrees knee flexion Not able to Single leg stance: / Trendelenburg sign positive bilaterally Hand and finger dexterity intact on the left but not on the right. Disdiadochokinesis examination negative[] on the left positive on the right - Labs CBC & Chem 7: 12/22/20 12:59 12/22/20 12:59 Labs: Abnormal Lab Results - Last 24 Hours (Table) 12/25/20 Range/Units 13:15 Homocysteine 15.69 H (4.00-14.00) umol/L Assessment and Plan Assessment: 1. RUE weakness 2. RLE weakness 3. 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 Mood disorder 6. Anxiety 7. Complex medical patient Plan: -Appreciate medicine management. -appreciate neurology consult and input -Start Decadron one-time dose 10 mg followed by 4 mg every 6h -Pain control: [adequate at this time] -Aggressive ambulation protocol. OOB with all meals. OOB or in chair 4-5x daily. -PT/OT -TEDs, SCDs, mechanical ppx. OK for heparin today. Early ambulation is best. -GI ppx. -Trend labs. I had another conversation with the patient today that was much better than yesterday. She was able to understand what was going on she was able to keep her composure and she was able to ask appropriate questions. We discussed a anterior cervical discectomy and fusion from C3 to C6 due to the compression that she has on her MRI as well as her clinical signs and symptoms. We discussed the risks and benefits of this procedure including risk of bleeding infection damage surrounding tissue and risk of nerve damage is given anesthesia up to and including . She understood these and was able to ask questions about them. I discussed postponing surgery versus doing surgery now while she is in the hospital. I do feel that her weakness in some regards is related to the cervical stenosis that she has in the myelopathy that she is exhibiting. Chest with her that I cannot guarantee that her symptoms get better after surgery but that in order to prevent progression of her symptoms surgery is an option. She does not feel that the steroids have given her any type of relief from her pain or her weakness. When asked if she would like to follow-up in office versus have surgery here she stated that she would be okay with following up in office but after we talked a little bit more and reexamined her I do feel that surgical intervention is warranted while she is here as she is the most medically optimized and would be taking care of prior to surgery better than if we did this on an outpatient follow-up basis. She understood this. She would like to think about it and talk with her family which is reasonable. We will place her tentatively on the schedule for 12/27/2020 for C3 to C6 anterior cervical discectomy and fusion In the meantime would continue with Decadron physical therapy and medical management We will discuss case with primary team as well as neurology
--- NOTE | 2020-12-26 10:39 | PN ---
PROGRESS NOTE Giana is a 50-year-old lady that is admitted to hospital with CVA and I was asked to performed a transesophageal echo. The ANSELMO did not show any evidence of intracardiac thrombus or shunting across the interatrial septum. This morning she is doing well, remains in sinus rhythm and is free of new neurological symptoms. She is on aspirin, Lipitor, Plavix, HydroDIURIL, and Zestril. PHYSICAL EXAMINATION: Comfortable at rest. Vital signs are stable. Chest exam reveals good air entry bilaterally. Heart exam reveals first and second heart sounds. No gallop. Examination of extremities did not reveal any edema. Peripheral pulses are felt. I do not have any labs on her from today. Her COVID was negative. Her lipid profile was actually really good. ASSESSMENT: 1. Cerebrovascular accident. 2. History of cerebral aneurysm, status post coiling. PLAN: Her recent CVA could very well be related to the cerebral aneurysm and the coil and the stent that she had. No cardiac source of thromboembolic phenomenon. Continue current medications. MMODL / IJN: [id number] /
--- NOTE | 2020-12-26 10:54 | P.PN ---
Progress Note - Text Progress Note Date: 12/26/20 Interval History: Patient was seen today for psychiatric follow-up regarding patient's psychiatric condition and mood. Patient appeared to be in a brighter mood and affect this morning. She claims that she is doing better overall states that she is becoming more functional and using her walker around to the bathroom and in the hallways. She claims that she is feeling better with regards to the information that she is getting about her condition and feels like she has more answers. She denied any overnight complaints in claims that she was able to get a good amount of sleep last night. She states that she feels her mood is mildly more stable. She claims that it is still difficult at times to stop herself from crying but denies any depression at this time and claims that she feels more optimistic. She is denying any anxiety. At this time patient denies any suicidal or homical ideations, intent or plan. Patient denies any auditory, visual hallucinations and denies any paranoia or delusions. Patient denies any side effects from the medications and has been compliant with meds. Mental Status Exam: General Appearance: Patient appears to be stated age is alert, attempts to be cooperative. Patient appears to have improving hygiene and grooming wearing hospital gown with fair eye contact. Uses a walker. Behavior: Patient is attending to cooperate and is not agitated however is tearful and labile, improving Speech: Patient's speech is fluent and nonpressured. Mood/Affect: Patient reports their mood is "better", affect is congruent Suicidality/Homicidality: Patient denies having any suicidal or homicidal ideation intent or plan. Perceptions: Patient denies any visual hallucinations and denies any auditory hallucinations Though content/process: There is no evidence of any delusional thought content and thought process is linear and goal-directed. More future oriented Memory and concentration: AOX3, grossly intact for the purposes of this session Judgment and insight: fair Assessment Mood disorder unspecified, rule out secondary to a general medical condition Nicotine dependence Plan: -At this time patient DOES NOT meet criteria for inpatient psychiatric admission. -Would recommend the following medication changes/additions: Continue with Depakote 500 mg 2 times a day for mood stabilization. Melatonin 5 mg daily at bedtime for sleep. -carnival worker to provide patient with outpatient mental health/psychiatry resources for appropriate follow up upon discharge. Patient should follow up with mental in 1-2 weeks after discharge. -Communicated plan to patient's nurse -At this time psychiatry will sign off. -Please contact with any questions.
[2020-12-26] MEDS: FAMOTIDINE 20 MG TAB PO SCH (11:02)
[2020-12-26] MEDS: ASPIRIN 81 MG PO SCH (11:02)
[2020-12-26] MEDS: CLOPIDOGREL 75 MG TAB PO SCH (11:03)
[2020-12-26] MEDS: hydroCHLOROthiazide 25 MG TAB PO SCH (11:03)
[2020-12-26] MEDS: DIVALPROEX 500 MG TABLET.DR PO SCH (11:03)
[2020-12-26] MEDS: PHENYLEPHRINE 2.5% OPHTH DRP 2ML BOTH EYES SCH (11:04)
[2020-12-26 11:45] VITALS: RESP 20
--- NOTE | 2020-12-26 12:28 | P.DS ---
Providers Date of admission: 12/25/20 06:37 Expected date of discharge: 12/26/20 Attending physician: Vetnura Riggs MD Consults: 12/22/20 16:55 Consult Physician Routine Consulting Provider: Colt Pool Consult Reason/Comments: vision loss, suspect cva Do you want consulting provider notified?: Already Contacted Consult Physician Routine Consulting Provider: Rufus Dunne Consult Reason/Comments: central vision loss Do you want consulting provider notified?: Yes 12/22/20 18:29 Consult Physician Routine Consulting Provider: Huan Durham Consult Reason/Comments: conversion Do you want consulting provider notified?: Yes 12/25/20 07:22 Consult Physician Routine Consulting Provider: Arias Del Rio Consult Reason/Comments: lily Do you want consulting provider notified?: Yes 12/25/20 08:18 Consult Physician Routine Consulting Provider: Sascha Tran Consult Reason/Comments: cervical stenosis with right sided weak and hyprereflexia Do you want consulting provider notified?: Yes Primary care physician: Oumar Bloom [facility] Course: 50-year-old female with history of brain aneurysm status post coiling in June of last year, right sided weakness and right arm spasms thought to be secondary to conversion disorder by previous evaluation by neurology presenting for evaluation of vision loss in the left side of both eyes. She also states that she has been having increasing numbness around her mouth and the right fingertips. She states that she had a significant amount of stress due to her mother dying from a stroke last August. She denies any worsening weakness. Evaluation in the emergency department with basic labs, head CT as well as CT angiogram of the head and neck are all unremarkable. She was subsequently admitted for neurology evaluation. Patient was seen by psychiatry due to anxiety. Depakote was started for mood stabilization. Ophthamology also did an eye exam which was essentially normal. She is currently stable for discharge, will be sent home in a stable condition. Work up with lipid profile showed triglyceride 102, cholesterol 155, LDL is 73 and HDL 62. MRI of the brain showed evidence of acute infarct over right occipital area as well as a small lacunar infarct over the left thalamus. MRI of the cervical spine showed multilevel posterior cervical disc herniation without significant spinal cord impingement or myelomalacia. No fracture, there was disc herniation over the C3 over to the C6 but mostly over the C5 to C6 region. MRA of the head did not show acute abnormalities. Patient was started on aspirin and plavix as well as statin by neuro. She was seen by cardio for LILY which did not show any clots. Neurologist also ordered SMITH, anti-thrombin 3 antigen activity, factor V Leiden mutation, homocystine level, lupus anticoagulant, MTHFR genotype, Protein C/S antigen and activity. Orthopedic was consulted for possible cervical spine decompression and fusion and Dr. Tran did recommend that to be done in the near future. Patient is currently thinking about it, she also wants to d/w family. Decadron was tried without significant improvement. Time for discharge 36 min Patient Condition at Discharge: Fair Plan - Discharge Summary Discharge Rx Participant: No New Discharge Prescriptions: No Action lisinopriL 40 mg PO HS Famotidine 20 mg PO BID [id number] [phone] [Excedrin] 2 tab PO QID PRN PRN Reason: Migraine Headache hydroCHLOROthiazide [Hydrodiuril] 25 mg PO DAILY Discharge Medication List [id number] [phone] [Excedrin] 2 tab PO QID PRN 12/22/20 [History] Famotidine 20 mg PO BID 12/22/20 [History] hydroCHLOROthiazide [Hydrodiuril] 25 mg PO DAILY 12/22/20 [History] lisinopriL 40 mg PO HS 12/22/20 [History] Follow up Appointment(s)/Referral(s): Maxime Haynes [Other] - 1 Week (Neuro Surgeon ) Giana John [Other] - 1 Week (Neurologist. ) Oumar Shetty MD [Primary Care Provider] - 1-2 days Discharge/Stand Alone Forms: Who Do I Call?, Community Resources, Outpatient Counseling
--- NOTE | 2020-12-26 13:19 | P.PN ---
Subjective Progress Note Date: 12/26/20 Patient was seen at bedside and she stated that she continues to have that small visual spots on the bilateral left side of the region and it's at the outer left the center but she said that size schulte has been drinking since initial presentation and she feels that the small grayish spot. Otherwise denies any new weakness, numbness, visual disturbance or any neurological complaint. Patient had a transesophageal echocardiogram on 12/25/2020 and is reported as no intracardiac thrombus. No evidence of shunting across the inter-atrial septum. No obvious cardiac source of thromboembolic cerebrovascular accident. Objective - Vital Signs Vital signs: Vital Signs Temp 97.4 F L 12/26/20 04:00 Pulse 85 12/26/20 08:00 Resp 20 12/26/20 08:00 BP 149/96 12/26/20 08:00 Pulse Ox 95 12/26/20 08:00 Intake & Output 12/25/20 12/26/20 12/26/20 18:59 06:59 18:59 Intake Total 515 604 600 Balance 515 604 600 Weight 76.6 kg Intake: IV 75 Intake, IV Titration 160 160 Amount Sodium Chloride 0.9% 1, 160 160 000 ml @ 20 mls/hr IV . Q24H [facility] Rx#:[id number] Oral 440 [id number] 440 Other: Voiding Method Toilet # Voids 1 2 - Exam GENERAL: The patient is lying in bed and is not in acute distress. NEUROLOGICAL: Higher mental function: The patient is awake, alert, oriented to self, place and time. Patient is following commands. No aphasia and no neglect. Cranial nerves: Visual acuity is 20/40 OU without correction. The pupils are round, equal and reactive to light and accommodation. Visual soares are full to confrontation throughout. Extraocular movement is intact no nystagmus is noted. She has grayish spot that is circular on left side of both eyes and does not resolve with either eye closure. Facial sensation is normal to touch throughout. The facial strength is normal throughout. Hearing is normal bilaterally to hand rub. Tongue is midline and moved [id number] without any difficulty. Mild dysarthria is noted (chronic). Shoulder shrug is antigravity bilaterally and had limited assessing because of pain. Motor: Gait is deferred. The strength is proximally of right upper extremity is antigravity but has weakness distally > proximally. Is able to lift right lower extremity above gravity and right thigh flexion/extension is 4+ while distall is 4 except ankles are 3/5. While left is 5/5. There is increase tone of ther right elbow and mild increase tone in right lower extremity (especially ankle). Cerebellum: Normal finger to nose over the left. Sensation: Sensation is normal to touch throughout. Reflexes (right/left): Entire right is 3+ while left is brisk over the biceps and patellar. Plantars are upgoing bilaterally. - Labs CBC & Chem 7: 12/22/20 12:59 12/22/20 12:59 Labs: Abnormal Lab Results - Last 24 Hours (Table) 12/25/20 12/25/20 Range/Units 13:15 13:15 Protein C Antigen 172 H (72-160) % Antithrombin III Activ 74 L (79-109) % Homocysteine 15.69 H (4.00-14.00) umol/L Assessment and Plan Assessment: This is a 50-year-old woman that presented to the emergency department on 12/22/2020 with visual disturbance over the left eye. Acute right occipital stroke and left lacunar left thalamus stroke (seeing schwartz spot over bilateral left side with slight improvement). One of the possibilities is due to embolic (cardioembolic). ?Cannot rule out result of aneurysm (baslilar aneurysm s/p coiling with stenting) possibly lack of circulation to posterior circulation region (but she was told aneurysm coil is stable and this diagnosis (feel this cause seems atypical and unsual to cause symptoms now after this peroid of of time of coiling). 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 If felt most C5-C6) is cause of residual right-sided weakness with increased tone which has been present since August 2020 or September 2020 (Her weakness over the right side is not conversion) C3-C6 stenosis without myelomalacia Hypertension Mood disorder unspecified (has chronic stress) Plan: CT of the head is reported as age-related atrophic and chronic small vessel ischemic change without acute intracranial process seen at this time. Extensive streak artifact from aneurysm clipping limits portion of the study. Upon reviewing its is seems in the basilar tip aneurysm status post coiling not clipping. I reviewed it with the reading radiologist and he did agree that he felt was in the basilar tip aneurysm in the from the past and he will he felt was more coiling over clipping. CTA head and neck is reported as no significant diameter reduction to account for the patient's symptoms. CT angiography [place] with 3-D reconstruction. Examination is nondiagnostic given the extensive streak artifact from the prior aneurysm clipping. MRI of the brain is reported as evidence of acute infarct over right occipital. I personally reviewed and I felt TS there is a acute infarct over the right hospital by also felt there is a small lacunar infarct over the left thalamus. I called the reading radiologist (Dr. Garcia) and he did agree that there is an increased signal within the left thalamus compatible with a tiny acute insult. Regarding the MRI of the cervical spinous reported as multilevel posterior cervical disc herniation without significant spinal cord impingement. No fracture. I personally reviewed it felt there was disc herniation over the C3 over to the C6 but mostly over the C5 to C6 region. I agree there is no visible myelomalacia seen over the MRI. MRA of the head is reported as normal MRA [place]. I posterior reviewed it and I felt it could not be normal since the patient had the basilar aneurysm coil with stenting therefore I contacted that the reading radiologist (Dr. 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 Any felt there is a cough in this region secondary due to artifact. Lipid panel: Triglyceride 102, cholesterol 155, LDL is 73 and HDL 62. Goal in strokes is LDL is less than 70. TSH is 1.32 which is normal. Hemoglobin A1c is 4.8 which is also considered normal. Continue aspirin 81 mg, Plavix 75mg daily and Lipitor 40 mg for secondary stroke prophylaxis. 2-D echo: It is reported as moderate concentric left ventricular hypertrophy. Overall left ventricle systolic function is normal with ejection fraction of 60-65%. There is a mild aortic stenosis present. Mild pulmonary hypertension. Normal left atrial size by volume. transesophageal echocardiogram on 12/25/2020 and is reported as no intracardiac thrombus. No evidence of shunting across the inter-atrial septum. No obvious cardiac source of thromboembolic cerebrovascular accident. SMITH: Negative, anti-thrombin 3 activity: 74 (slightly low, normal is 79-109) , Protein S antigen: 127 (normal). Pending Factor V Leiden mutation, homocystine level, lupus anticoagulant, MTHFR genotype, Protein C/S activity. Patient to obtain factor VII and 8 factors as an outpatient and the rest of the hypercoagulable workup as an outpatient. Protein C antigen 170 (72-160 which is high) and should be repeated as outpatient. Continue cardiac monitoring. Patient to be discharged with event monitor. To follow-up with board runner as outpatient. Physical therapy and occupation therapy Orthopedic surgery team is on board and they wanted to do C3 to C6 anterior cervical discectomy infusion but the patient does not want to get it done as an inpatient with to get done as an outpatient which is understandable. Psychiatric team felt the patient and they felt the patient had the mood disorder unspecified. Ophthamology team (Dr. Dunne) evaluate the patient and he felt that the patient's visual deficit is possibly posterior chiasmal defect Please avoid any hypotensive episode and keep the blood pressure normotensive and we'll defer the management to the primary team. We'll defer the rest of medical management to the primary team. Patient would like a different referral for neurosurgeon: Recommend Maxime Haynes over at [facility], [facility], [address], [place] [address]. [phone]. I recommend the patient to get a repeated diagnostic cerebral angiogram to assess the aneurysm status post coiling and stent as outpatient (recommend within 1-2 weeks). I spoke with Dr. Rey and he said he will arrange for patient to follow-up in 2 weeks from now. Regarding a referral to neurologist: Possibly consider Dr. Giana John, [facility] [address], [place] [address]. [phone]. There is no further work-up done. The plan is discussed with the patient's nurse, primary team and orthopedics. Colt Pool M.D. Neuro-hospitalist Time with Patient: Less than 30
[2020-12-26 13:36] VITALS: BP 154/95; PULSE 89
[2020-12-26] MEDS: HYDROcodone/APAP 5-325MG 1 EACH TAB PO PRN (13:57)
[2020-12-26 14:33] LABS: APTT 41 Sec(s) (<43); Dilute Russell Viper Venom 39 Sec(s) (<44)
== END 2020-12-26 14:22 | disposition home or self-care (01) | DRG 65 ==
LOC: EC 11:00 → UNDOADMOB 16:54 → 3SCARD 16:54 → OBSVTOIN 12-25 06:37 → INTOOBSV 12-25 06:37 → UNDODISIN 12-26 14:22
PROVIDERS: ADMIT Internal Medicine; ATTEND Internal Medicine
DX: I63.81 Other cerebral infarction due to occlusion or stenosis of small artery (principal); M47.12 Other spondylosis with myelopathy, cervical region; H53.40 Unspecified visual field defects; F39 Unspecified mood [affective] disorder; I27.20 Pulmonary hypertension, unspecified; F44.9 Dissociative and conversion disorder, unspecified; R29.2 Abnormal reflex; M48.02 Spinal stenosis, cervical region; F43.9 Reaction to severe stress, unspecified; H52.4 Presbyopia; R53.1 Weakness; R26.89 Other abnormalities of gait and mobility; R20.2 Paresthesia of skin; I35.0 Nonrheumatic aortic (valve) stenosis; I10 Essential (primary) hypertension; F32.9 Major depressive disorder, single episode, unspecified; F17.200 Nicotine dependence, unspecified, uncomplicated; Z98.2 Presence of cerebrospinal fluid drainage device; Z86.79 Personal history of other diseases of the circulatory system; Z88.2 Allergy status to sulfonamides; Z20.822 Contact with and (suspected) exposure to COVID-19; M50.20 Other cervical disc displacement, unspecified cervical region; Z91.048 Other nonmedicinal substance allergy status; Z79.899 Other long term (current) drug therapy; Z82.3 Family history of stroke; F17.210 Nicotine dependence, cigarettes, uncomplicated; F41.9 Anxiety disorder, unspecified; G89.29 Other chronic pain; H54.7 Unspecified visual loss; Z79.82 Long term (current) use of aspirin
CPT/HCPCS: 36415; 70450; 70496; 70498; 70544; 70551; 71046; 72125; 72141; 80053; 80061; 81241; 81291; 83036; 83090; 84443; 84484; 85025; 85300; 85301; 85302; 85303; 85305; 85306; 85610; 85613; 85730; 86038; 87635; 93005; 93306; 93312; 93320; 93325; 94760; 96360; 99285

== ENCOUNTER → 2021-01-26 | Outpatient (CLI) | payer OTHER | END | disposition home or self-care (01) | LOC: LABPAT 14:13 | PROVIDERS: ATTEND Orthopaedic Surgery | DX: Z01.812 Encounter for preprocedural laboratory examination (principal); M50.01 Cervical disc disorder with myelopathy, high cervical region; Z22.322 Carrier or suspected carrier of Methicillin resistant Staphylococcus aureus | CPT/HCPCS: 86850; 86900; 86901; 87070 ==

== ENCOUNTER 2021-02-03 05:50 | Observation (INO) | payer BC, OTHER ==
[2021-01-29 11:37] VITALS: BMI 30.9
--- NOTE | 2021-02-02 08:50 | P.HPOR ---
History of Present Illness H&P Date: 01/26/21 Chief Complaint: RUE weakness, gait instability, RUE pain 50 yo female who originally presented in the hospital due to RUE weakness RLE weakness, gait instability and psychiatric issues represented to the clinic for follow up. She is well known to us from the hospital. Originally we were planning on doing surgery in the hospital because the pt was presented with myelopathic type sysmptoms but she was found to have a possible cerebellar stroke so we postponed. Since then she has worsened in her symptoms with RUE weakness, RLE weakenss pain and gait instability. She has been treated and cleared by neurology for spinal intervention. She and her caregiver who is in the room with her states she is having more difficulty with ambulation, she is having more weakness in her RUE and that she is having more pain. Originally as well we planned on surgery earlier, however it was denied by insurance for unknown reasons. Currently she states no bowel or bladder issues. She states no perineal numbness/tingling. She states she has more wakness in her shoulder but she still has bicep function. She has limited RLE function at this time. She c/o of neck pain and radicular pain down her R arm to her hands. She denies any other truama or symptoms. No f/c/sob/cp. Review of Systems 14 points review of systems completed and as stated in HPI, all other systems reviewed are negative. Past Medical History Past Medical History: CVA/TIA, GERD/Reflux, Hypertension Additional Past Medical History / Comment(s): Brain aneurysm [address] ents (JUN 2020), hospitalized at [facility] 12/22 to 12/26/20 for vision changes right side weakness-possible CVA., uses wheelchair, states hx falls., occasional dizziness., Cervical Stenosis. History of Any Multi-Drug Resistant Organisms: None Reported Additional Past Surgical History / Comment(s): Brain aneurysm with brain coil. (Jun 2020 @ [facility]) Past Anesthesia/Blood Transfusion Reactions: No Reported Reaction, Motion Sickness Past Psychological History: No Psychological Hx Reported Smoking Status: Current every day smoker Past Alcohol Use History: Occasional Additional Past Alcohol Use History / Comment(s): started smoking 11 yrs old, trying to quit-smoking 1/2 ppd (down from 1ppd) Past Drug Use History: None Reported - Past Family History Mother Family Medical History: No Reported History Medications and Allergies Home Medications Medication Instructions Recorded Confirmed Type Famotidine 20 mg PO BID 12/22/20 01/29/21 History hydroCHLOROthiazide [Hydrodiuril] 25 mg PO HS 12/22/20 01/29/21 History lisinopriL 40 mg PO HS 12/22/20 01/29/21 History Aspirin 81 mg PO DAILY 30 Days #30 chew 12/26/20 01/29/21 Rx Atorvastatin [Lipitor] 40 mg PO HS 3 Days #30 tab 12/26/20 01/29/21 Rx Clopidogrel [Plavix] 75 mg PO DAILY 21 Days #21 tab 12/26/20 01/29/21 Rx Divalproex [Depakote] 500 mg PO BID 30 Days #60 tablet. 12/26/20 01/29/21 Rx Gabapentin [Neurontin] 100 mg PO TID PRN 01/29/21 01/29/21 History Allergies Allergy/AdvReac Type Severity Reaction Status Date / Time adhesive Allergy Rash/Hives Verified 01/29/21 10:56 Sulfa (Sulfonamide Allergy Rash/Hives Verified 01/29/21 10:56 Antibiotics) Physical Examination Osteopathic Statement: *. No significant issues noted on an osteopathic structural exam other than those noted in the History and Physical/Consult. General: Awake, alert, appropriate for age, in no acute distress. HEENT: No unusual neck masses around region of lateral neck triangle, thyroid, supraclavicular groove Heart: Regular rate and rhythm, normal S1, S2 and no murmur/gallop. Lungs: Clear to auscultation bilaterally with no use of accessory muscles. Extremities: Skin warm and dry without acute lesions, coloration, temperature, skin intact, no tenderness or erythema Integument: Hairy patches: Absent Dorsal skin dimples: Absent Cafe au lait spots: Absent Palpation: Please see Pain drawing on Intake sheet for further detail. Midline spinal tenderness: yes cervical E6 Paralumbar tenderness: No E6 Parathoracic tenderness: No E6 Buttocks tenderness: No E6 POSTURAL and MUSCULO-SKELETAL EVALUATION: Coronal Balance: Neutral Recumbent testing: Patient is able to lay on her back Sagittal Balance: Neutral Shoulder Profile: level Pelvic Girdle: level Neck ROM: restricted Lumbar ROM: Unrestricted Shoulder ROM: Symmetric in abduction, ER/IR Hip ROM: Symmetric in abduction, adduction, ER/IR Knee ROM: Symmetric and intact in Flexion / extension VASCULAR STATUS : LEFT RIGHT Wrist Pulses intact intact Pedal Pulses (Dors. pedis & post.tibialis) intact intact Color normal normal Edema Absent Absent NEUROLOGIC EXAMINATION: Mental Status: Awake and alert, fully oriented, with normal attention, concentration and memory, and fluent, appropriate speech. Cranial Nerves: I: Olfactory not tested. II: Visual acuity normal, no visual field deficit noted with confrontation. III,IV: Normal pupillary reflexes & intact extraocular movements without nystagmus. V,: Intact symmetrical facial sensation. VII: Intact symmetrical facial motor movement VIII: Hearing intact. IX,X: Intact gag, swallow, & normal voice. XI: Sternocleidomastoid, trapezius function intact. XII: Tongue midline with normal movements. L'hermitte's Sign: Negative / absent Spurling'Sign: Absent bilaterally. Cubital percussion test: Absent bilaterally. Jamel-Tinel sign - Carpal region: Absent bilaterally. Straight Leg Raising: Absent bilaterally. Crossed straight leg raise: negative O8 MOTOR EXAM (0-5/5, N/T) STRENGTH RIGHT LEFT Shoulder Abd (not part of the NABEEL score) 1 5 Elbow Flexors 3 5 Elbow Extensor 2 5 Wrist Dorsiflexors 1 5 Finger Abductor 5 5 Polish Maker 2 5 Hip Flexor (Not part of NABEEL Motor score) +4 5 Knee Flexor 5 5 Knee Extensor +4 5 Ankle dorsiflexor 5 5 Ankle plantarflexion 3 5 Extensor hallucis 5 5 REFLEXES(0-4/2, NT) RIGHT LEFT Upper Extremities +3 +3 Lower Extremities 3+ 3+ Pathological Reflexes RIGHT LEFT Sage's Present Present Clonus Absent Absent Sensory system (0-4, N/T) Test type RU TARIQ RL LL Joint-Position 2 2 2 2 Vibration 2 2 2 2 Pain & LT sense 2 2 2 2 Dermatomal Deficit: none none none none Gait and Functional Evaluation: Romberg's test: Intact bilaterally Toe heel walk / heel-toe walk intact while maintaining satisfactory balance? No Squatting/straightening w/o assistance to a min of 60 degree knee flexion? yes Single leg stance: intact Hand and finger dexterity intact bilaterally? yes Disdiadochokinesis examination negative bilaterally? yes Results XRAY: C spine imaging XR and MRI are reviewed. These demonstrate spondylosis from C3-6 with no evidence of kinetic instability of C0-1 and C1-2 or subaxial cervical spine. There are no lesions noted. There is what appears to be myelomalacia changes of C3-6 secondary to the severe stenosis that there is at these levels centrally and foraminally. The worst level is C5-6. C6-7 does not show any significant stenosis at this time. There are no fractures or dislocations noted. Assessment and Plan Assessment: 1. 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 RUE weakness 3. RLE weakness 4. Complex medical history Plan: 1. Urgent C3-6 ACDF for progressive weakness, myelopathy Spine Surgery Risk Review Giana Sherman is a 50-year-old female presenting for evaluation of right upper extremity weakness, progressive, severe with right lower extremity weakness and difficulty with ambulation unsteady gait and pain and right upper extremity radiculopathy. It was my pleasure to have seen and examined Giana Sherman. In our visit today we have had a chance to go over subjective complaints, physical examination findings and treatments including the natural course history without intervention and various interventional options. The patients imaging demonstrates severe stenosis with myelomalacia C3 to C6. On physical exam, Giana Sherman demonstrates extreme right upper extremity weakness right upper extremity radiculopathy unsteady gait inability to ambulate right lower extremity weakness myelopathic changes. I have explained to the patient that as their condition progresses it will cause further neurological deficits and eventual paralysis. Based on the patients imaging, physical exam, and the rapid progression and disabling nature of their symptoms, at this time I recommend surgery in the form or a: C3 to C6 ACDF. I discussed the risk and benefits of this procedure at length with Giana Sherman. The patient and her caregiver agreed to considered pursuing the procedure abovementioned. Prior to surgery, she should follow up with her PCP (Cardio, ID, IM etc) for clearance. Questions were invited and answered, and the patient wishes to proceed as outlined below. Currently, I am recommendin. Cervical 3 to cervical 6 anterior cervical discectomy and fusion 2. Follow up with PCP for surgical clearance 3. Review of surgical risks and benefits as well as an educational packet on t he proposed surgical procedure. Risks: All surgical procedures come with inherent risks, including those related to positioning, anesthesia, intraoperative findings, and postoperative complications. It is important to understand that surgery does not come with any guarantee of a successful outcome as complications and adverse events are always possible. The patient was given a handout in office today discussing the surgical procedure and risks associated with the intervention, both of which were discussed with the patient. These risks include but are not limited to the following: * Experiencing same, different or even worse symptoms in back, neck, arms, or legs compared to before surgery. * Requiring further surgery or other forms of treatment presently or at some time in the future at same or other levels of the intended spine surgery. * On an extreme but fortunately relatively rare basis severe complication such as blindness, stroke, heart attack, temporary and/or permanent nerve injury, paralysis, coma, or may occur, sometimes without known explanation. * Surgical complications may include but are not limited to risk of infection, fluid accumulation in the surgical dissection site, including a seroma or hematoma, that requires additional surgery, wound drainage, bleeding, new numbness or weakness, vision changes/loss, spinal fluid leakage, non-healing and/or infected incision, headaches, difficulty or inability to swallow, hoarseness, hemopneumothorax, pneumothorax, impotence, retrograde ejaculation, vaginal dryness; injury to nerves, spinal cord, blood vessels, lymphatics or other vital organs (i.e., bowel injury, injury to the great vessels); heterotopic bone formation; complications related to the hardware such as screws, rods, cages including misplaced hardware, device failure, instrumentation at the wrong spine level, hardware fracture/breakage, or hardware loosening; vertebral failure of the spinal column above or below the newly placed hardware; retained surgical instrumentations or devices and the need for further surgery. * Medical risks of the planned spine surgery include but are not limited to generalized Infections to the whole body or local areas outside of the surgical site (sepsis), heart attack, bleeding, anaphylaxis, meningitis, seizure, epilepsy, hearing loss, burn freitas, laceration of the head or other areas of the body, bruising, hypersensitivity of the skin, bladder over distension; allergic reaction; shoulder injury related to positioning; fat, blood and air clots to other areas of the body like heart, lungs, brain; failure of internal organs such as lungs, kidneys, liver and excessive bleeding. If blood transfusions are necessary, note that transfusions may cause intolerance reactions such as anaphylaxis or other complex reactions. * Despite best efforts, the results of spine surgery might not heal in terms of bone, soft tissues such as skin, fascia, ligaments, and joints. Additionally, in order to achieve best possible results, spine surgery may be carried out beyond the initially planned levels and involve decompression, fusion including insertion of hardware at levels other than the original intended area of surgical interest change some portions of the procedure in order to ensure the best possible outcomes. * With spine surgery and spinal fusion, there are different off label uses of instrumentation (devices, implants and hardware) as well as biological substances (bone morphogenic proteins, demineralized bone matrix) as well as using extra bone from allograft sources (i.e. cadaver bone) or autograft (iliac crest bone, ribs, or the spine itself). The patient has been given information about these practices and their inherent risks and benefits. * [facility] is an educational center that serves as a training facility for neurosurgical and orthopedic spine residents and fellows. Residents are physicians who are completing their surgical intensive training following medical school. They assist in the operating room with direct supervision of the attending surgeons. Wheeler are surgeons who have complete d their training and eligible for board certification. They have opted for an elective year of more specialized training in their field. They assist in the operating room under the supervision of the attending surgeons. Physician assistants are medically trained surgical providers who function in the outpatient, inpatient, and operating room setting under the direct supervision of the attending surgeon. * [facility] has multiple operating rooms with single and overlapping rooms running daily. They currently function under the required guidelines as produced by the [facility] Finance Committee with regards to the overlapping rooms and will continue to comply with changes to this policy as they occur. The requirements include and are complied with as follows: (1) the critical portions of the overlapping rooms will not occur at the same time, (2) the attending physician will be physically present during the critical portions of the procedure and immediately available during the entire case, and (3) a back-up attending is designated should the primary attending not be immediately available. The patient has had a chance to review all the listed information, has been given print outs detailing this information, and has had all his/her questions answered to their satisfaction. It was my pleasure to have seen and examined Giana Sherman. In our visit today we have had a chance to go over my understanding of our patient's current condition, the natural course history without intervention and various interventional options. Questions were invited and answered, and the patient wishes to proceed as outlined above. I have seen and examined the patient for 25 minutes and we have spent more than 50% of the time in repeat and detailed counseling about the patient's condition, its natural course history with out and as much as can be predicted with surgery and re-review of various surgical treatment options. In conclusion, Giana Sherman and her caregiver requested we proceed with the above suggested surgery and are willing to accept risks and limitations of the suggested surgery as nature of the disease process and our best attempts at treatment for the condition. Thank you again for allowing us to be part of your patient's care. Please don't hesitate to contact me if you have any further questions. Signed and authenticated by: Sascha Ortega [facility] [address], [address] [place] [address]
[~2021-02-03 05:50] MED LIST: ACETAMINOPHEN TAB 500 MG TAB PO PRN; DEXAMETHASONE SOD PHOSPHATE 4 MG/ML 1 ML VIAL IV ONE; GABAPENTIN 300 MG CAP PO PRN; MIDAZOLAM 2 MG/2 ML VIAL IV PRN; ONDANSETRON 4 MG/2 ML VIAL IVP PRN; SCOPOLAMINE 1.5MG/72HR PATCH TRANSDERM ONE; TRANEXAMIC ACID 1,000 MG in SODIUM CHLORIDE 0.9% 100 ML IVPB PRN
[2021-02-03] MEDS: LACTATED RINGERS 1,000 ML IV SCH (06:48)
[2021-02-03] MEDS ORDERED: LIDOCAINE 1% (10MG/ML) FOR IV START INTRADERMA ONE ×2 (06:49)
[2021-02-03] MEDS ORDERED: ROCURONIUM 10 MG/ML (5 ML VIAL) IV ONE (07:25)
[2021-02-03] MEDS ORDERED: TRANEXAMIC ACID 1,000 MG/10 ML VIAL ONE (07:25)
[2021-02-03] MEDS ORDERED: LIDOCAINE 1% INJ 10MG/ML (20 ML MDV) ONE (07:25)
[2021-02-03] MEDS ORDERED: DEXAMETHASONE SOD PHOSPHATE 10 MG/ML 1 ML VIAL ONE (07:25)
[2021-02-03] MEDS ORDERED: HYDROmorphone (PF) 1 MG/ML ONE (07:25)
[2021-02-03] MEDS ORDERED: SUCCINYLCHOLINE CHLORIDE 100 MG/5 ML SYR IV ONE (07:25)
[2021-02-03] MEDS ORDERED: PROPOFOL 10 MG/ML 20 ML VIAL IV ONE (07:25)
[2021-02-03] MEDS ORDERED: WATER FOR INJECTION, STERILE 10 ML VIAL IV ONE (07:25)
[2021-02-03] MEDS ORDERED: MIDAZOLAM 2 MG/2 ML VIAL ONE (07:25)
[2021-02-03] MEDS ORDERED: fentaNYL (PF) 50 MCG/ML 2 ML AMP ONE (07:25)
[2021-02-03] MEDS ORDERED: ePHEDrine SULFATE/0.9% NACL/PF 50 MG/5 ML SYRINGE IV ONE (07:25)
[2021-02-03] MEDS ORDERED: SODIUM CHLORIDE 0.9% 100 ML BAG ONE (07:25)
[2021-02-03] MEDS ORDERED: THROMBIN (BOVINE) 5,000 UNIT VIAL TOPICAL ONE (07:30)
[2021-02-03] MEDS ORDERED: GELATIN SPONGE,ABSORB (LARGE) 1 EACH SPONGE TOPICAL ONE (07:30)
[2021-02-03] MEDS ORDERED: BUPIVACAINE-EPI 0.5%-1:200,000 10 ML VIAL SQ ONE (07:30)
--- NOTE | 2021-02-03 11:19 | FL ---
Fluoroscopy and limited cervical spine HISTORY: Pain, anterior cervical fusion and discectomy 1.37 minutes fluoroscopy time supplied to the referring clinician. 4 intraoperative C-arm images doc ument the procedure. See dictated report from orthopedic surgery.
[2021-02-03] MEDS ORDERED: MAGNESIUM HYDROXIDE 2,400 MG/10 ML CUP PO PRN (11:28)
[2021-02-03] MEDS ORDERED: ONDANSETRON 4 MG/2 ML VIAL IVP PRN (11:28)
[2021-02-03] MEDS ORDERED: HYDROmorphone 0.5 MG/0.5 ML SYRINGE IVP PRN (11:28)
[2021-02-03] MEDS ORDERED: CYCLOBENZAPRINE 10 MG TAB PO PRN (11:28)
[2021-02-03] MEDS ORDERED: SENNOSIDES-DOCUSATE SODIUM 1 EACH TAB PO PRN (11:28)
[2021-02-03] MEDS: HYDROmorphone 0.5 MG/0.5 ML SYRINGE IVP PRN ×3 (12:12→14:27)
[2021-02-03] MEDS ORDERED: LACTATED RINGERS 1,000 ML IV ONE ×2 (14:00)
[2021-02-03] MEDS: ACETAMINOPHEN TAB 500 MG TAB PO SCH ×2 (17:29→17:44)
[2021-02-03] MEDS: GABAPENTIN 300 MG CAP PO SCH ×2 (17:48→22:44)
[2021-02-03] MEDS: HYDROcodone/APAP 5-325MG 1 EACH TAB PO PRN ×2 (17:49→22:43)
[2021-02-03] MEDS: lisinopriL 20 MG TAB PO SCH (18:57)
[2021-02-03] MEDS: hydroCHLOROthiazide 25 MG TAB PO SCH (18:58)
[2021-02-03] MEDS: DIVALPROEX 500 MG TABLET.DR PO SCH (20:37)
[2021-02-03] MEDS: FAMOTIDINE 20 MG TAB PO SCH (20:37)
[2021-02-03] MEDS: ATORVASTATIN 40 MG TAB PO SCH (20:37)
--- NOTE | 2021-02-03 21:19 | CONS ---
CONSULTATION REASON FOR CONSULTATION: Advice regarding history of cerebrovascular accident and GERD and hypertension. HISTORY OF PRESENT ILLNESS: This 50-year-old woman with a past medical history of CVA, GERD, hypertension, history of brain aneurysm, underwent anterior cervical diskectomy and fusion. The patient is slightly drowsy after surgery. There is no history of chest pain, palpitations, headache, loss of consciousness, nausea, vomiting, diarrhea at this time. PAST MEDICAL HISTORY: History of CVA, TIA, GERD, hypertension, history of brain aneurysm. MEDICATIONS: Lisinopril, Advil, Neurontin. Pepcid, Depakote, Plavix, Lipitor, aspirin. Doses are reviewed. ALLERGIES: ADHESIVES, SULFA. FAMILY HISTORY: No history of heart disease or strokes in the family. SOCIAL HISTORY: Previous history of smoking. Occasional alcohol intake. REVIEW OF SYSTEMS: ENT: No diminished vision. No diminished hearing. CARDIOVASCULAR: No angina. RESPIRATION: No cough or hemoptysis. GI no nausea or vomiting. no dysuria. Nervous system as mentioned earlier. ALLERGY/IMMUNOLOGY: No asthma or hayfever. MUSCULOSKELETAL: As mentioned earlier. HEMATOLOGY/ONCOLOGY: No history of anemia. ENDOCRINE: No history of diabetes or hypothyroidism. CONSTITUTIONAL: As mentioned earlier. DERMATOLOGY: Negative. RHEUMATOLOGY negative. PSYCHIATRY as mentioned earlier. PHYSICAL EXAMINATION: Alert and oriented times two. Pulse 106. Blood pressure 164/90, respirations 16, temperature 97.7, pulse ox 91 percent on room air. HEENT: Conjunctivae normal. NECK: Examination neck is status post surgery. CARDIOVASCULAR: S1, S2 muffled. RESPIRATORY SYSTEM: Breath sounds diminished at the bases. No rhonchi. No crackles. ABDOMEN: Soft, nontender. No mass palpable. LEGS are no edema. No swelling. NERVOUS SYSTEM: Higher functions as mentioned. Moves all 4 limbs. No focal deficits. SKIN: No ulcers, no rashes and no bleeding. JOINTS: No active deforming arthropathy. LABS: The preoperative labs are: Hematology is normal and chemistry showed sodium 134. ASSESSMENT: 1. Status post anterior cervical diskectomy with fusion. 2. Cerebrovascular accident, transient ischemic attack. 3. Gastroesophageal reflux disease. 4. Hypertension. 5. History of brain aneurysm. 6. History of nicotine dependence. 7. History of hyponatremia. RECOMMENDATIONS AND DISCUSSION: This 50-year-old woman who presented with multiple medical issues, we will monitor the patient closely, continue the current medications, management and symptomatic treatment. I recommend resume the home medications. Monitor blood pressure closely. Also recommend DVT prophylaxis. Incentive spirometry. Lisinopril may be initiated and we will continue to monitor. Repeat labs also will be recommended. Further recommendations to follow. DORIS / FRANDY: [id number] /
[2021-02-03 22:36] LABS: ALT 20 U/L (4-34); AST 35 U/L (14-36); African American GFR (CKD) >90 (>60 ml/min/1.73 sqM); Albumin 4.1 g/dL (3.5-5.0); Albumin/Globulin Ratio 1.8; Alkaline Phosphatase 52 U/L (38-126); Anion Gap 8 mmol/L; Blood Urea Nitrogen 12 mg/dL (7-17); Calcium 10.2 mg/dL (8.4-10.2); Carbon Dioxide 26 mmol/L (22-30); Chloride 100 mmol/L (98-107); Globulin 2.3 g/dL; Glucose 133 mg/dL (74-99); Non-African American GFR(CKD) >90 (>60 ml/min/1.73 sqM); Sodium 134 mmol/L (137-145); Total Bilirubin 0.4 mg/dL (0.2-1.3); Total Protein 6.4 g/dL (6.3-8.2)
[2021-02-04] MEDS: ACETAMINOPHEN TAB 500 MG TAB PO SCH ×4 (00:11→17:07)
[2021-02-04 06:17] LABS: Basophils % (A) 0 %; Eosinophils % (A) 0 %; HCT 38.6 % (34.0-46.0); HGB 13.2 gm/dL (11.4-16.0); Lymphocytes # (A) 1.3 k/uL (1.0-4.8); Lymphocytes % (A) 10 %; MCH 34.8 pg (25.0-35.0); MCHC 34.3 g/dL (31.0-37.0); MCV 101.4 fL (80.0-100.0); Mean Platelet Volume 6.8; Monocytes # (A) 0.7 k/uL (0-1.0); Monocytes % (A) 6 %; Neutrophils # (A) 10.3 k/uL (1.3-7.7); Neutrophils % (A) 83 %; Platelet Count 396 k/uL (150-450); RBC 3.81 m/uL (3.80-5.40); RDW 12.7 % (11.5-15.5); WBC 12.4 k/uL (3.8-10.6)
[2021-02-04] MEDS: LACTATED RINGERS 1,000 ML IV SCH (08:02)
[2021-02-04] MEDS: CLOPIDOGREL 75 MG TAB PO SCH (08:29)
[2021-02-04] MEDS: ASPIRIN 81 MG PO SCH (08:29)
[2021-02-04] MEDS: GABAPENTIN 300 MG CAP PO SCH ×3 (08:29→21:05)
[2021-02-04] MEDS: FAMOTIDINE 20 MG TAB PO SCH ×2 (08:29→21:05)
[2021-02-04] MEDS: HYDROcodone/APAP 7.5-325MG 1 EACH TAB PO PRN ×2 (08:35→14:36)
[2021-02-04] MEDS: DIVALPROEX 500 MG TABLET.DR PO SCH ×2 (08:35→21:04)
--- NOTE | 2021-02-04 09:09 | P.PN ---
Subjective Progress Note Date: 02/04/21 Principal diagnosis: C3-5 Spondylosis Cervical myelopathy RUE weakness RLE weakness Pt s/e this AM she is doing fairly well. No issues overnight some pain with swallowing. No voice changes. Minimal swelling. Denies any new weakness/numbness/tingling. No f/c/sob/cp. Objective - Vital Signs Vital signs: Vital Signs Temp 97.6 F 02/04/21 05:28 Pulse 86 02/04/21 05:28 Resp 16 02/04/21 05:28 BP 186/97 02/04/21 05:28 Pulse Ox 93 L 02/04/21 05:28 Intake & Output 02/03/21 02/04/21 02/04/21 18:59 06:59 18:59 Intake Total 1800 Output Total 250 Balance 1550 Intake: IV 1750 Intake, IV Titration 50 Amount ceFAZolin 2 gm In Sodium 50 Chloride 0.9% 50 ml @ 100 mls/hr IVPB Q8HR ROSE MARIE Rx# :[id number] Output: Urine 140 Estimated Blood Loss 110 Other: Voiding Method Bedside Commode # Voids 2 - Exam Patient is alert and oriented 3 appears well-nourished well-hydrated is in no acute distress. They does not appear septic. On exam the patient has no tenderness to palpation of her thoracic or lumbar spine. There is no edema or ballottement sign. Lower extremities with 5 out of 5 strength in all major muscle groups. Except for her right lower extremity which she has 2+ strength in her hip flexion and knee flexion and extension dorsiflexion. Plantarflexion is 2-3+ out of 5. She has no EHL or FHL function on the right-hand side at this time. Upper extremities show 5/5 strength in all major muscle groups. Except for her right upper extremity which still has weakness in the deltoids as well as triceps wrist extension are all 2+ out of 5. She does have biceps strength which is 3+ out of 5. 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 There is FROM that is painless of the b/l UE and LE in all major joints. They are intact to light touch sensation in L2 to S1 nerve distribution. Deep tendon reflexes are 2/4 on the left and are 1/4 on the right Patient has palpable dorsalis pedis was posterior tibial pulses. Compartments are soft and compressible. Patient shows a negative Homans, Sage's, negative Babinski's negative clonus bilaterally. negative straight leg raise bilaterally. No tensioning signs. Cranial nerves II through XII are grossly intact. Overall alignment is well-maintained in the sagittal coronal planes. [] - Labs CBC & Chem 7: 02/04/21 05:48 02/03/21 20:26 Labs: Abnormal Lab Results - Last 24 Hours (Table) 02/03/21 02/04/21 Range/Units 20:26 05:48 WBC 12.4 H (3.8-10.6) k/uL MCV 101.4 H (80.0-100.0) fL Neutrophils # 10.3 H (1.3-7.7) k/uL Sodium 134 L (137-145) mmol/L Glucose 133 H (74-99) mg/dL Assessment and Plan Assessment: 50-year-old female postoperative day 1 C3 to C6 ACDF 1. 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 RUE weakness 3. RLE weakness 4. Complex medical history Plan: -Appreciate medicine management. Symptom Control: -Pain control: Adequate at this time . Would recommend low on the narcotic side of pain medications if needed. Could try a muscle relaxer as well Activity: -Aggressive ambulation protocol. OOB with all meals. OOB or in chair 4-5x daily. -PT/OT Cervical collar Prophylaxis: -TEDs, SCDs, mechanical ppx. OK for heparin today. Early ambulation is best. -GI ppx. Imaging/labs: Computed tomography scan of the cervical spine is reviewed hardware in position good decompression noted -Trend labs as appropriate Intervention: PT OT Pain control AFO to right lower extremity DC drain today Dispo: Home today versus tomorrow
--- NOTE | 2021-02-04 10:10 | CT ---
EXAMINATION TYPE: CT cervical spine wo con DATE OF EXAM: 02/04/2021 COMPARISON: 12/25/2020 HISTORY: post op CT DLP: 1351 mGycm CONTRAST: None CT of the cervical spine is performed in the axial plane at 2 mm thick sections. Reconstructed image s in the coronal, and sagittal plane are reviewed on the computer. No acute fractures are evident. Vertebral body alignment is normal. The prevertebral fusion extends from C3 through C6. Disc spacers of the placed. Postsurgical changes are within the subcutaneous tissues. Remaining disc heights are preserved. Some endplate spurring at C4-5 and C5-6 is noted. Vertebral body heights are preserved. No spinal canal stenosis is evident Uncovertebral joint hypertrophy at C4-5 level has moderate bilateral foraminal narrowing. Bilateral f oraminal narrowing is also present C5-6 from uncovertebral joint hypertrophy, greater on the left. Incidental note is made of prior aneurysm repair Basilar tip IMPRESSIONS: 1. Postsurgical changes anterior cervical fusion C3-C6. 2. Uncovertebral joint hypertrophy with foraminal stenosis C4-5 C5-6.
[2021-02-04] MEDS: amLODIPine 10 MG TAB PO SCH (17:11)
[2021-02-04] MEDS: BENZOCAINE/MENTHOL LOZENG 1 EACH LOZENGE MUCOUS MEM PRN (18:16)
--- NOTE | 2021-02-04 19:16 | PN ---
PROGRESS NOTE DATE OF SERVICE: 02/04/2021 This 50-year-old woman was admitted after anterior cervical discectomy and fusion. She is being closely monitored. Blood pressure is slightly elevated. No chest pain. No palpitation. No fever. The cervical spine CT scan done today showed postsurgical changes. No chest pain. No palpitations. PHYSICAL EXAMINATION: Alert and oriented times three. Pulse is 84. Blood pressure 157/87, respiratory rate 16, temperature 97.2, pulse ox 96% on room air. HEENT: Conjunctivae normal. NECK: No JVD. CARDIOVASCULAR: S1, S2. RESPIRATIONS: Breath sounds diminished in the bases. ABDOMEN: Soft. NERVOUS SYSTEM: No focal deficits. LAB STUDIES: WBC 12.4, MCV 101.4. Sodium 134. ASSESSMENT: 1. Status post anterior cervical discectomy and fusion. 2. Cerebrovascular accident/transient ischemic attack. 3. Hypertension. 4. Gastroesophageal reflux disease. 5. History of brain aneurysm. 6. History of nicotine dependence. 7. History of hyponatremia. RECOMMENDATIONS AND DISCUSSION: Recommend to continue current medications, symptomatic treatment. Otherwise, I will add amlodipine to the current regimen. Continue the rest of medications. DVT prophylaxis. Closely follow with Orthopedic Surgery. Further recommendations to follow. MMODL / IJN: [id number] /
[2021-02-04] MEDS: ATORVASTATIN 40 MG TAB PO SCH (21:04)
[2021-02-04] MEDS: lisinopriL 20 MG TAB PO SCH (21:04)
[2021-02-04] MEDS: HYDROcodone/APAP 5-325MG 1 EACH TAB PO PRN (21:04)
[2021-02-04] MEDS: hydroCHLOROthiazide 25 MG TAB PO SCH (21:05)
[2021-02-05] MEDS: ACETAMINOPHEN TAB 500 MG TAB PO SCH ×5 (00:29→23:31)
[2021-02-05] MEDS: HYDROcodone/APAP 5-325MG 1 EACH TAB PO PRN (03:04)
[2021-02-05] MEDS: BENZOCAINE/MENTHOL LOZENG 1 EACH LOZENGE MUCOUS MEM PRN ×3 (03:05→20:59)
[2021-02-05] MEDS: LACTATED RINGERS 1,000 ML IV SCH (05:25)
[2021-02-05] MEDS: amLODIPine 10 MG TAB PO SCH (08:35)
[2021-02-05] MEDS: FAMOTIDINE 20 MG TAB PO SCH ×2 (08:35→20:49)
[2021-02-05] MEDS: ASPIRIN 81 MG PO SCH (08:35)
[2021-02-05] MEDS: DIVALPROEX 500 MG TABLET.DR PO SCH ×2 (08:35→20:50)
[2021-02-05] MEDS: GABAPENTIN 300 MG CAP PO SCH ×3 (08:35→20:49)
[2021-02-05] MEDS: CLOPIDOGREL 75 MG TAB PO SCH (08:35)
[2021-02-05] MEDS: HYDROcodone/APAP 7.5-325MG 1 EACH TAB PO PRN ×2 (09:00→15:52)
--- NOTE | 2021-02-05 11:24 | P.PN ---
Subjective Progress Note Date: 02/05/21 Principal diagnosis: Status post C3-C6 ACDF Patient was evaluated today at bedside, she is resting comfortably in her hospital bed. Patient is doing fairly well. I did discuss with nursing, Dr. Tran was rounder earlier this morning when evaluating the patient. She is having a difficult time swallowing. She is also having a little bit more difficult time with speech. The remaining further test at this time. She does state she does have a little bit worse as a throat today. She denies any headaches or lightheadedness. She denies any shortness of breath or chest pain. Objective - Vital Signs Vital signs: Vital Signs Temp 97.8 F 02/05/21 04:00 Pulse 68 02/05/21 04:00 Resp 18 02/05/21 04:00 BP 139/81 02/05/21 04:00 Pulse Ox 93 L 02/05/21 04:00 Intake & Output 02/04/21 02/05/21 02/05/21 18:59 06:59 18:59 Intake Total 50 320 Output Total 30 Balance 20 320 Intake: Intake, IV Titration 50 Amount ceFAZolin 2 gm In Sodium 50 Chloride 0.9% 50 ml @ 100 mls/hr IVPB Q8HR [facility] Rx# :[id number] Oral 320 Output: Drainage 30 Anterior Neck 30 Other: Voiding Method Bedside Commode Bedside Commode # Voids 1 - Exam Patient is alert and oriented 3 appears well-nourished well-hydrated is in no acute distress. They does not appear septic. On exam the patient has no tenderness to palpation of her thoracic or lumbar spine. There is no edema or ballottement sign. Lower extremities with 5 out of 5 strength in all major muscle groups. Except for her right lower extremity which she has 2+ strength in her hip flexion and knee flexion and extension dorsiflexion. Plantarflexion is 2-3+ out of 5. She has no EHL or FHL function on the right-hand side at this time. Upper extremities show 5/5 strength in all major muscle groups. Except for her right upper extremity which still has weakness in the deltoids as well as ana ps wrist extension are all 2+ out of 5. She does have biceps strength which is 3+ out of 5. Her intrinsic muscles of her hand show 3+ out of 5 strength in her rangeland management specialist strength is 3+ out of 5. There is FROM that is painless of the b/l UE and LE in all major joints. They are intact to light touch sensation in L2 to S1 nerve distribution. Deep tendon reflexes are 2/4 on the left and are 1/4 on the right Patient has palpable dorsalis pedis was posterior tibial pulses. Compartments are soft and compressible. Patient shows a negative Homans, Sage's, negative Babinski's negative clonus bilaterally. negative straight leg raise bilaterally. - Labs CBC & Chem 7: 02/04/21 05:48 02/03/21 20:26 Assessment and Plan Assessment: Postoperative day #2 status post C3 to C6 ACDF Plan: Pain control, continue with current medication GI and DVT prophylaxis, continue current medication Wound care instructions were discussed at bedside, continue basic cause dressing can be applied tomorrow Soft c-collar be worn when ambulating Discuss use of AFO brace on the right lower extremity when ambulating Swallow evaluation is pending, other medical secretary teacher recommendations appreciated Discharge planning: An orthopedic standpoint she stable for discharge, we'll await swallow evaluation and medical's recommendations. Time with Patient: Less than 30
[2021-02-05] MEDS: IPRATROPIUM-ALBUTEROL 3 ML NEB INHALATION SCH ×3 (11:28→20:11)
--- NOTE | 2021-02-05 11:57 | XR ---
EXAMINATION TYPE: XR chest 1V portable DATE OF EXAM: 02/05/2021 COMPARISON: 12/22/2020 HISTORY: Cough TECHNIQUE: Single frontal view of the chest is obtained. FINDINGS: Bilateral subsegmental consolidation. Heart size normal. Surgical change overlying the cer vical spine. No pneumothorax or interstitial edema. No pleural effusion. Hyperinflation suggests COPD . Hypertrophic and degenerative change of the spine. IMPRESSION: Basilar subsegmental consolidation bilaterally correlate for atelectasis versus early in filtrate.
[2021-02-05] MEDS: guaiFENesin 600 MG TABLET.ER PO SCH ×4 (13:13→20:49)
[2021-02-05] MEDS ORDERED: CEFEPIME 2 GM in SODIUM CHLORIDE 0.9% 100 ML IVPB ONE (14:15)
--- NOTE | 2021-02-05 15:20 | P.PN ---
Progress Note - Text Progress Note Date: 02/05/21 Presenting complaint: Cervical spine surgery History of presenting complaint: Patient had presented to orthopedics for progressive weakness in the right upper extremity, right lower extremity gait dysfunction. With myelopathic symptoms. She was cleared by neurology for spinal intervention. Also complaining of neck pain and radicular pain down the right upper extremity. [Patient was noted to be dysarthric on December 26 admission.] DiagnosticC3/5 spondylosis with cervical myelopathy. Surgical intervention on February 03.-Cervical fusion. Today: Reclining in bed. Sleepy. Congested cough. Not able to expectorate. Oral intake about 25% of her breakfast. Was not able to do incentive spirom etry. Seen by speech therapist: Coughing episodes with thin liquids. Did well with other consistencies. Review of systems: Was done for constitutional, cardiovascular, GI, pulmonary. relevant finding as above Active Medications Acetaminophen (Acetaminophen Tab 500 Mg Tab) 1,000 mg PO Q6HR [facility] Stop: 03/05/21 12:01 Last Admin: 02/05/21 13:13 Dose: Not Given Documented by: Hydrocodone Bitart/Acetaminophen (Hydrocodone/Apap 7.5-325mg 1 Each Tab) 1 each PO Q6H PRN PRN Reason: Pain Stop: 03/05/21 11:32 Last Admin: 02/05/21 09:00 Dose: 1 each Documented by: Hydrocodone Bitart/Acetaminophen (Hydrocodone/Apap 5-325mg 1 Each Tab) 2 each PO Q6HR PRN PRN Reason: Pain Stop: 03/05/21 11:33 Last Admin: 02/05/21 03:04 Dose: 2 each Documented by: Albuterol/Ipratropium (Ipratropium-Albuterol 3 Ml Neb) 3 ml INHALATION RT-QID [facility] Last Admin: 02/05/21 11:28 Dose: 3 ml Documented by: Amlodipine Besylate (Amlodipine 10 Mg Tab) 10 mg PO DAILY [facility] Last Admin: 02/05/21 08:35 Dose: 10 mg Documented by: Aspirin (Aspirin 81 Mg) 81 mg PO DAILY [facility] Stop: 03/06/21 09:01 Last Admin: 02/05/21 08:35 Dose: 81 mg Documented by: Atorvastatin Calcium (Atorvastatin 40 Mg Tab) 40 mg PO HS [facility] Stop: 03/05/21 21:01 Last Admin: 02/04/21 21:04 Dose: 40 mg Documented by: Benzocaine/Menthol (Benzocaine/Menthol Lozeng 1 Each Lozenge) 1 each MUCOUS MEM Q4HR PRN PRN Reason: Sore Throat Last Admin: 02/05/21 03:05 Dose: 1 each Documented by: Clopidogrel Bisulfate (Clopidogrel 75 Mg Tab) 75 mg PO DAILY [facility] Stop: 03/06/21 09:01 Last Admin: 02/05/21 08:35 Dose: 75 mg Documented by: Cyclobenzaprine HCl (Cyclobenzaprine 10 Mg Tab) 10 mg PO TID PRN PRN Reason: Muscle Spasm Stop: 03/05/21 11:29 Divalproex Sodium (Divalproex 500 Mg Tablet.Dr) 500 mg PO BID [facility] Stop: 03/05/21 21:01 Last Admin: 02/05/21 08:35 Dose: 500 mg Documented by: Famotidine (Famotidine 20 Mg Tab) 20 mg PO BID [facility] Stop: 03/05/21 21:01 Last Admin: 02/05/21 08:35 Dose: 20 mg Documented by: Gabapentin (Gabapentin 300 Mg Cap) 300 mg PO TID [facility] Stop: 03/05/21 16:01 Last Admin: 02/05/21 08:35 Dose: 300 mg Documented by: Guaifenesin (Guaifenesin 600 Mg Tablet.Er) 600 mg PO QID [facility] Last Admin: 02/05/21 13:59 Dose: 600 mg Documented by: Hydrochlorothiazide (Hydrochlorothiazide 25 Mg Tab) 25 mg PO [facility] Stop: 03/05/21 21:01 Last Admin: 02/04/21 21:05 Dose: 25 mg Documented by: Lactated Ringer's (Lactated Ringers) 1,000 mls @ 20 mls/hr IV .Q24H [facility] Stop: 03/05/21 05:30 Last Admin: 02/05/21 05:25 Dose: Not Given Documented by: Cefepime HCl 2 gm/ Sodium (Chloride) 100 mls @ 25 mls/hr IVPB Q12HR@0000,1200 [facility] Lisinopril (Lisinopril 20 Mg Tab) 40 mg PO [facility] Stop: 03/05/21 21:01 Last Admin: 02/04/21 21:04 Dose: 40 mg Documented by: Magnesium Hydroxide (Magnesium Hydroxide 2,400 Mg/10 Ml Cup) 2,400 mg PO DAILY PRN PRN Reason: Constipation Stop: 03/05/21 11:29 Ondansetron HCl (Ondansetron 4 Mg/2 Ml Vial) 4 mg IVP Q8HR PRN PRN Reason: Nausea And Vomiting Stop: 03/05/21 11:29 Senna/Docusate Sodium (Sennosides-Docusate Sodium 1 Each Tab) 2 each PO DAILY PRN PRN Reason: Constipation Stop: 03/05/21 11:29 On examination: VITAL SIGNS: 97.8, 77, 14, 116/73, 93% room air GENERAL APPEARANCE: Average build. Lying in bed, sleepy lethargic but arousable, congested cough HEENT: Normal external appearance of nose and ear. Oral cavity normal EYES: Pupils equal. Conjunctiva normal. NECK: JVD not raised. Mass not palpable. RESPIRATORY: Respiratory effort increased. Decreased breath sounds CARDIOVASCULAR: First and second sounds normal. No edema. ABDOMEN: Soft. Liver and spleen not palpable. No tenderness. No mass palpable. PSYCHIATRY: Able to answer questions NEUROLOGICAL: Right upper extremity: Power 2-3/5. Right lower extremity: Power 4/5. Slurred speech Investigations: February 05:Chest x-ray film personally reviewed by me-right basilar infiltrate WBC 12.4 hemoglobin 13.2 increased neutrophils potassium 5 bun 12 creatinine 0.59 Assessment and plan: -C3/5 spondylosis with cervical myelopathy. Surgical intervention on February 03.- Cervical fusion Being followed by Dr. Tran -Chronic dysarthria from recent stroke. -Right hemiparesis with weakness greater in the right upper extremity than lower from cervical myelopathy, since September 2020 -Right lower lobe pneumonia, new diagnosis today *Patient IV cefepime. Check CBC and pro-calcitonin -Postoperative dysphagia. Not able to tolerate thin liquids. Diet as per speech therapy. MBS tomorrow-discuss with Nelly Lepe Discussed with the nurse. Also discussed with Nelly speech therapist for MBS tomorrow. Communicated to make PA from orthopedics. Start the patient IV cefepime. Further plans as per clinical course.
[2021-02-05] MEDS: ATORVASTATIN 40 MG TAB PO SCH (20:49)
[2021-02-05] MEDS: lisinopriL 20 MG TAB PO SCH (20:49)
[2021-02-05] MEDS: hydroCHLOROthiazide 25 MG TAB PO SCH (20:49)
[2021-02-05] MEDS: CEFEPIME 2 GM in SODIUM CHLORIDE 0.9% 100 ML IVPB SCH (23:30)
[2021-02-06] MEDS: HYDROcodone/APAP 7.5-325MG 1 EACH TAB PO PRN (00:53)
[2021-02-06] MEDS: LACTATED RINGERS 1,000 ML IV SCH (04:53)
[2021-02-06 05:22] VITALS: RESP 16
[2021-02-06 05:32] LABS: Basophils % (A) 0 %; Eosinophils # (A) 0.2 k/uL (0-0.7); Eosinophils % (A) 2 %; HCT 42.2 % (34.0-46.0); HGB 14.2 gm/dL (11.4-16.0); Lymphocytes # (A) 1.9 k/uL (1.0-4.8); Lymphocytes % (A) 20 %; MCH 33.6 pg (25.0-35.0); MCHC 33.5 g/dL (31.0-37.0); MCV 100.2 fL (80.0-100.0); Mean Platelet Volume 6.7; Monocytes # (A) 0.8 k/uL (0-1.0); Monocytes % (A) 8 %; Neutrophils # (A) 6.6 k/uL (1.3-7.7); Neutrophils % (A) 69 %; Platelet Count 382 k/uL (150-450); RBC 4.21 m/uL (3.80-5.40); RDW 12.5 % (11.5-15.5); WBC 9.5 k/uL (3.8-10.6)
[2021-02-06] MEDS: ACETAMINOPHEN TAB 500 MG TAB PO SCH ×2 (05:33→12:35)
[2021-02-06 05:38] LABS: African American GFR (CKD) >90 (>60 ml/min/1.73 sqM); Anion Gap 9 mmol/L; Blood Urea Nitrogen 12 mg/dL (7-17); Calcium 10.3 mg/dL (8.4-10.2); Carbon Dioxide 28 mmol/L (22-30); Chloride 96 mmol/L (98-107); Glucose 94 mg/dL (74-99); Non-African American GFR(CKD) >90 (>60 ml/min/1.73 sqM); Potassium 4.4 mmol/L (3.5-5.1); Sodium 133 mmol/L (137-145)
[2021-02-06] MEDS: ASPIRIN 81 MG PO SCH (08:14)
[2021-02-06] MEDS: CLOPIDOGREL 75 MG TAB PO SCH (08:14)
[2021-02-06] MEDS: GABAPENTIN 300 MG CAP PO SCH (08:14)
[2021-02-06] MEDS: amLODIPine 10 MG TAB PO SCH (08:15)
[2021-02-06] MEDS: FAMOTIDINE 20 MG TAB PO SCH (08:15)
[2021-02-06] MEDS: DIVALPROEX 500 MG TABLET.DR PO SCH (08:16)
[2021-02-06] MEDS: guaiFENesin 600 MG TABLET.ER PO SCH (08:16)
[2021-02-06] MEDS: IPRATROPIUM-ALBUTEROL 3 ML NEB INHALATION SCH ×3 (08:22→15:42)
--- NOTE | 2021-02-06 08:36 | P.PN ---
Subjective Progress Note Date: 02/06/21 Principal diagnosis: C3-5 Spondylosis Cervical myelopathy RUE weakness RLE weakness Pt s/e. She is doing well. She is seated up in bed eating breakfast. She states some difficulty with swallowing but otherwise she is able to eat this AM without issues. Denies any new numbness/tingling. States that her RLE and RUE are doing better and getting stronger. Denies any new sx. No f/c/sob/cp at this time. Objective - Vital Signs Vital signs: Vital Signs Temp 97.5 F L 02/06/21 04:45 Pulse 94 02/06/21 08:33 Resp 16 02/06/21 04:45 BP 119/75 02/06/21 04:45 Pulse Ox 93 L 02/06/21 04:45 Intake & Output 02/05/21 02/06/21 02/06/21 18:59 06:59 18:59 Intake Total 100 820 Output Total 1000 Balance 100 -180 Intake: Intake, IV Titration 100 100 Amount Cefepime 2 gm In Sodium 100 Chloride 0.9% 100 ml @ 200 mls/hr IVPB ONCE ONE Rx#:[id number] Cefepime 2 gm In Sodium 100 Chloride 0.9% 100 ml @ 25 mls/hr IVPB Q12HR@0000, 1200 [facility] Rx#:[id number] Oral 720 Output: Urine 1000 Other: Voiding Method Bedside Commode # Voids 3 1 - Exam Exam is stable at this time. Patient is alert and oriented 3 appears well-nourished well-hydrated is in no acute distress. They does not appear septic. On exam the patient has no tend erness to palpation of her thoracic or lumbar spine. There is no edema or ballottement sign. Lower extremities with 5 out of 5 strength in all major muscle groups. Except for her right lower extremity which she has 2+ strength in her hip flexion and knee flexion and extension dorsiflexion. Plantarflexion is 2-3+ out of 5. She has no EHL or FHL function on the right-hand side at this time. Upper extremities show 5/5 strength in all major muscle groups. Except for her right upper extremity which still has weakness in the deltoids as well as triceps wrist extension are all 2+ out of 5. She does have biceps strength which is 3+ out of 5. Her intrinsic muscles of her hand show 3+ out of 5 strength in her superintendent pipelines strength is 3+ out of 5. There is FROM that is painless of the b/l UE and LE in all major joints. They are intact to light touch sensation in L2 to S1 nerve distribution. Deep tendon reflexes are 2/4 on the left and are 1/4 on the right Patient has palpable dorsalis pedis was posterior tibial pulses. Compartments are soft and compressible. Patient shows a negative Homans, Sage's, negative Babinski's negative clonus bilaterally. negative straight leg raise bilaterally. No tensioning signs. Cranial nerves II through XII are grossly intact. Overall alignment is well-maintained in the sagittal coronal planes. Drain was removed yesterday. No swelling. - Labs CBC & Chem 7: 02/06/21 04:18 02/06/21 04:18 Labs: Abnormal Lab Results - Last 24 Hours (Table) 02/06/21 02/06/21 Range/Units 04:18 04:18 MCV 100.2 H (80.0-100.0) fL Sodium 133 L (137-145) mmol/L Chloride 96 L (98-107) mmol/L Calcium 10.3 H (8.4-10.2) mg/dL Assessment and Plan Assessment: 50-year-old female postoperative day 2 C3 to C6 ACDF 1. 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 RUE weakness 3. RLE weakness 4. Complex medical history Plan: -Appreciate medicine management. Symptom Control: -Pain control: Adequate at this time . Would recommend low on the narcotic side of pain medications if needed. Could try a muscle relaxer as well Activity: -Aggressive ambulation protocol. OOB with all meals. OOB or in chair 4-5x daily. -PT/OT Cervical collar Prophylaxis: -TEDs, SCDs, mechanical ppx. OK for heparin today. Early ambulation is best. -GI ppx. Imaging/labs: Computed tomography scan of the cervical spine is reviewed hardware in position good decompression noted -Trend labs as appropriate Intervention: PT OT Pain control AFO to right lower extremity Dispo: Home today
[2021-02-06] MEDS: CEFEPIME 2 GM in SODIUM CHLORIDE 0.9% 100 ML IVPB SCH (12:35)
[2021-02-06] MEDS ORDERED: guaiFENesin SYRUP 100MG/5ML 200 MG/10 ML CUP PO SCH (13:00)
--- NOTE | 2021-02-06 13:11 | FL ---
Modified barium swallow. HISTORY: Dysphagia. Modified barium swallow was performed with the department of speech pathology. The patient was prese nted with various consistencies of barium. Aspiration with thin liquid barium noted. No additional aspiration seen. Full report is to follow fro m the department of speech pathology. Impression: Aspiration with thin liquid barium noted.
[2021-02-06 14:10] VITALS: BP 116/77; TEMP 97.7
[2021-02-06 15:45] VITALS: PULSE 92
--- NOTE | 2021-02-06 17:52 | P.PN ---
Progress Note - Text Progress Note Date: 02/06/21 Presenting complaint: Cervical spine surgery History of presenting complaint: Patient had presented to orthopedics for progressive weakness in the right upper extremity, right lower extremity gait dysfunction. With myelopathic symptoms. She was cleared by neurology for spinal intervention. Also complaining of neck pain and radicular pain down the right upper extremity. [Patient was noted to be dysarthric on December 26 admission.] DiagnosticC3/5 spondylosis with cervical myelopathy. Surgical intervention on February 03.-Cervical fusion. Patient converted to have some dysphagia. Had a modified barium swallow. Diet was adjusted by speech therapy. Also pneumonia. Given IV cefepime Today: Doing better. Changed to oral antibiotic.. Placed on dysphagia 1 pured textured diet with honey thickened liquids. Review of systems: Was done for constitutional, cardiovascular, GI, pulmonary. relevant finding as above Current medications reviewed in today's electronic records On examination: VITAL SIGNS: 97.7, 93, 16, 116/77, 95% room air GENERAL APPEARANCE: Laying in bed, more awake today HEENT: Normal external appearance of nose and ear. Oral cavity normal EYES: Pupils equal. Conjunctiva normal. NECK: JVD not raised. Mass not palpable. RESPIRATORY: Respiratory effort increased. Decreased breath sounds CARDIOVASCULAR: First and second sounds normal. No edema. ABDOMEN: Soft. Liver and spleen not palpable. No tenderness. No mass palpable. PSYCHIATRY: AO 3 NEUROLOGICAL: Right upper extremity: Power 2-3/5. Right lower extremity: Power 4/5. Slurred speech Investigations: February 06: WBC 9.5 hemoglobin 14.2 potassium 4.4 creatinine 0.59 February 05:Chest x-ray film personally reviewed by mo-right basilar infiltrate WBC 12.4 hemoglobin 13.2 increased neutrophils potassium 5 bun 12 creatinine 0.59 Assessment and plan: -C3/5 spondylosis with cervical myelopathy. Surgical intervention on February 03.- Cervical fusion Being followed by Dr. Tran -Chronic dysarthria from recent stroke. -Right hemiparesis with weakness greater in the right upper extremity than lower from cervical myelopathy, since September 2020 -Right lower lobe pneumonia, *Patient IV cefepime. Changed to oral antibiotic -Postoperative dysphagia. Not able to tolerate thin liquids. Diet as per speech therapy. MBS done Patient will be going home today. She had support service. Complete course of oral antibiotic. Outpatient follow-up with speech. Thank you Dr. Tran
--- NOTE | 2021-02-10 11:51 | P.OP ---
Date of Procedure: 02/03/21 Preoperative Diagnosis: - C3-C4 stenosis - Cervical spondylotic myelopathy - C4-C5 stenosis - C5-C6 stenosis - Cervical radiculopathy - Cervical degenerative disc disease - Mechanical neck pain. Postoperative Diagnosis: - C3-C4 stenosis - Cervical spondylotic myelopathy - C4-C5 stenosis - C5-C6 stenosis - Cervical radiculopathy - Cervical degenerative disc disease - Mechanical neck pain. Procedure(s) Performed: - Right sided Styles-Larry exposure - C3-C4 anterior interbody arthrodesis. - C4-C5 anterior interbody arthrodesis. - C5-C6 anterior interbody arthrodesis. - C3-C4 application of intervertebral biomechanical device - C4-C5 application of intervertebral biomechanical device. - C5-C6 application of intervertebral biomechanical device. - C3, C4, C5 and C6 separate nonintegrated anterior cervical spinal plate instrumentation. - Allograft bone for spinal surgery. - Use of intraoperative microscope. - Use of neurophysiologic somatosensory and motor evoked potential monitoring, upper and lower extremities. Implants: Emelia [place] cervical cage x3 8 mm lordotic Plate 63 mm x1 Bio4 Anesthesia: JAKEA Surgeon: Sascha Tran Fluoroscope Operator #1: August Parrish (Was present for the entire case and necessary secondary to the complexity of the case) Estimated Blood Loss (ml): 100 IV fluids (ml): 1,500 Urine output (ml): 500 Condition: stable Disposition: PACU Indications for Procedure: This is a 50-year-old female who presented in follow-up in office from the hospital with continued complaints of right upper extremity right lower extremity pain as well as weakness. Patient has had progressive weakness in her right upper extremity and right lower extremity for some time now she was seen in the hospital at that time dealing with some side effects of a stroke. His fontanelle is severe stenosis of C3 through C6 at this time. She has been myelopathic symptoms with difficulty with ambulation difficulty with gait and ability to hold onto objects essentially paralysis of her right upper extremity as well as decreased strength in her right lower extremity. Her sensation so far been preserved however but her symptoms have been progressive to the point where she is having extreme difficulty with ambulation. She reported her for surgical intervention at this time by her insurance. This was sorted out she was again boarded for emergent surgical intervention as how she presents today. She is seen and evaluated in preoperative area risks and benefits of the surgery were discussed once again she is comfortable with these. She is willing to proceed with procedure Operative Findings: Severe stenosis C3 to C6 with disc osteophyte complexes C4 5 C5 6 causing severe stenosis as well as disc herniation C3-C4 causing severe stenosis Description of Procedure: FINDINGS: - Significant cervical degeneration was identified which was operated on secondary to a combination of significant disc space collapse, osteophyte formation, as well as posterior longitudinal ligament thickening and uncovertebral hypertrophy contributing to spinal stenosis. - The intraoperative microscope was necessary as the neural and vascular structures dealt with as well as adhesions were too small to be safely seen and dissected without the use of microscopic magnification and instrumentation. - Intraoperative neuromonitoring including the use of SSEP and motor evoked potentials remained stable from baseline and persisted throughout the case to its conclusion. CONSENT: Patient was seen in the preoperative area and we again had a lengthy detailed discussions were held with the patient regarding the indications and altern atives to surgery, various surgical approaches to the problem at hand, the risk and complications of surgery as well as anticipated surgical procedure and postoperative course. The risks discussed included but were not limited to bleeding, possible need for transfusion, infection, blood vessel injury, blood vessel and lung clots, lymphatic injury, epidural hematoma, nerve injury, paralysis, dural spinal fluid leakage, urologic dysfunction, sexual dysfunction, surgical instrument failure, spinal pseudoarthrosis, adjacent segment degeneration, hardware failure, spinal instability, spinal vertebral fracture, need for further surgery, esophageal injury, difficulty swallowing, hoarseness or loss of vocalization, syncope, dizziness, headache, blindness, renal failure, pneumonia, respiratory or cardiac arrest, stroke, coma, and even . It is well understood by the patient the outcome of the complex spinal surgery such as this cannot be guaranteed. All questions were answered to the patient's satisfaction. The patient expressed excellent understanding of the above concepts. Based on our discussion, the patient elected to proceed with surgery as outlined above and signed informed consent. DESCRIPTION OF PROCEDURE: The patient was brought to the holding area on the day of surgery. In the holding area, the patient was seen and examined by myself. The surgical site was marked with my initials using an indelible pen. The patient was taken to the operating room today and after being positively identified, received general endotracheal anesthesia by our anesthesia co lleagukaryna and bilateral sequential compression devices were placed on the lower extremities by the nursing staff. SSEP, EMG and motor-evoked potential baselines were obtained after the neuromonitoring leads were applied by the neurophysiology technician submarine cable equipment. Baseline MEPs and SSEPs were run showing good symmetric response in all extremities. SSEPs were also symmetric and stable. The patient was positioned on an interscapular pad on a Treos table with cervical lordosis roll and Adams-Xylitol [place] tongs were applied 10 pounds of traction. Arms were circumferentially padded. All pressure points were well padded as well. Shoulder pull-down with 3-inch tape was carried out. Preoperatively within 1 hour of incision, the patient received IV antibiotic prophylaxis and steroids. C-arm was used for bio-mapping in 2 planes. Sterile prepping and draping was completed and a safety timeout was carried out. The timeout was performed in order to confirm patient's identity, procedure, laterality, site, patient allergies, and preoperative administration of antibiotics and DVT prophylaxis. I then performed, as discussed with the patient, a [RICHT] sided anterior exposure along the anterior margin of the sternocleidomastoid muscle. This was about a 4 fingerbreadth-long incision. We identified the platysma and split it longitudinally. The superficial layer of the middle cervical fascia was identified and carefully dissected and then the deep layer of it. The omohyoid was mobilized and could be retracted. The deep cervical fascia was then released over the palpable osteophytes at C3 to C6 and reflected left and right with carrasco elevators off the uncovertebral joints. Nice exposure left and right with release of the anterior soft tissues of the longus colli was achieved. A radiopaque marker was placed to confirm the appropriate surgical level. Under C-arm guidance, we verified levels. At this point, a self-retaining cervical retractor was placed, the endotracheal cuff pressure was lowered to reduce compression on the RLN and the intraoperative microscope was brought in for anterior decompression. I then removed the anterior osteophytes at C3 to C6. I also used a smaller ENT rongeur to open the disc spaces, including the uncovertebral joints left and right. Bone from the anterior decompression was saved for use as autograft bone fusion material. Under lateral C-arm guidance, I then placed 12 mm traction pins of the Tanacross type into C3 and C4. Gentle distraction of the vertebrae was carried out until we had restored lordosis. I then spread out the C3-C4 disc after releasing the disc further with straight small curets. With the soft tissue retractors having been replaced and without any undue tension, I performed an anterior discectomy completion to the posterior inferior vertebral body wall using a combination of the high-speed bur, Kerrison punches, spinal curettes, and the microscopic instruments. The discectomy was performed to the level of the posterior longitudinal ligament. Bilateral foraminotomies and resection of the PLL was performed with the Kerrison punches to decompress the spinal cord and the exiting nerve roots. I also performed kapil dissection of the C3 endplate and the posterior superior endplate of C4, as well as the medial edge of the superior uncovertebral joints left and right of C4. I released the posterior longitudinal ligament and had full [place] dural sac as a reference for dorsal decompression of left through right. I then turned my attention toward the application of the intervertebral biomechanical device at C3-C4. The trial cages were inserted to identify the best fit. The appropriate-sized intervertebral cage was then selected, in this case a a degree lordotic interbody implant, packed with autograft and allograft and then inserted into the interspace using gentle impaction. A set of motor evoked potentials was run showing no change from baseline. Excess bone graft was then gently impacted into the anterior exposed gutters at C3-C4 to complete the anterior interbody arthrodesis at this level. [Next, I performed the anterior discectomy at C4-5. Under lateral C-arm guidance, I removed self-retaining Tanacross distractor followed by the Tanacross pin from the C3 body, sealed the pin site with bone wax and then placed 12 mm traction pin of the Tanacross type into the C5 body. Gentle distraction of the vertebrae was carried out until we had restored lordosis. Then using a combination of the high-speed bur, Kerrison punches, spinal curettes, and the microscopic instruments, an anterior discectomy was performed to the level of the posterior longitudinal ligament. Bilateral foraminotomies and resection of the PLL was performed with the Kerrison punches to decompress the spinal cord and the exiting nerve roots.] [I then turned my attention toward the application of the intervertebral biomechanical device at C4-C5. The trial cages were inserted to identify the best fit. The appropriate-sized intervertebral cage was then selected, in this case a 8 mm lordotic interbody implant, packed with autograft and allograft and then inserted into the interspace using gentle impaction. A set of motor evoked potentials was run showing no change from baseline. Excess bone graft was then gently impacted into the anterior exposed gutters at C4-C5 to complete the a nterior interbody arthrodesis at this level.] Next, I performed the anterior discectomy at C5-6. Under lateral C-arm guidance, I removed self-retaining Tanacross distractor followed by the Tanacross pin from the C4 body, sealed the pin site with bone wax and then placed 12 mm traction pin of the Tanacross type into the C6 body. Gentle distraction of the vertebrae was carried out until we had restored lordosis. Then using a combination of the high-speed bur, Kerrison punches, spinal curettes, and the microscopic instruments, an anterior discectomy was performed to the level of the posterior longitudinal ligament. Bilateral foraminotomies and resection of the PLL was performed with the Kerrison punches to decompress the spinal cord and the exiting nerve roots.] [I then turned my attention toward the application of the intervertebral biomechanical device at C5-C6. The trial cages were inserted to identify the best fit. The appropriate-sized intervertebral cage was then selected, in this case a 8 mm lordotic interbody implant, packed with autograft and allograft and then inserted into the interspace using gentle impaction. A set of motor evoked potentials was run showing no change from baseline. Excess bone graft was then gently impacted into the anterior exposed gutters at C5-6 to complete the anterior interbody arthrodesis at this level.] Nice purchase was obtained. All traction was removed, including pin traction of Tanacross and external traction weight. I then performed the application of the non-integrated anterior spinal instrumentation from C3 to C6. A non-integrated anterior cervical plate was selected for length and then contoured as needed for lordosis with the Filipino holloway. I templated a 63 mm plate, lordosed it, and secured it with temporary holding screws and then checked with AP and lateral imaging for adequate alignment and implant placement. With that having been accomplished, I drilled and placed the screws first and C6 and C5 then 4 and 3 Biplanar imaging revealed satisfactory alignment and implant placement. There were no electrodiagnostic changes. The wound was then copiously irrigated and final hemostasis was achieved using FloSeal hemostatic agent and the bipolar device. At this point, the anterior cervical retractor was removed and the wound was found to have good hemostasis present. I then performed final thorough irrigation and review of the surgical site and found no internal organ injuries. I then closed the incision in layers with a deep drain. I used 3-0 Vicryl for platysma, 3-0 Vicryl for subcutaneous, and 4-0 Monocryl for skin. The skin was then dressed with Exofin and a sterile bandage. Suction canister was applied to the drain. The drain was sewn in to avoid accidental translocation. Drain dressing was applied. A Soft cervical collar was then applied. A final set of motor evoked potentials were run and no change from baseline was noted. At the conclusion of the operation, all sponge, needle, and instrument counts were deemed to be correct. The patient was awakened from their anesthetic, extubated in the operating room, transferred onto their hospital bed, and transferred to the post-anesthesia care unit in a stable condition, extubated condition. COMPLICATIONS: No known complications. No blood products given. No dural tear, no CSF leak. No changes in intraoperative neuromonitoring. DRAINS: One small round anjali drain COUNTS: Needle, sponge and cottonoid count correct. UOP: See anesthesia record FLUIDS: See anesthesia record SPECIMENS SUBMITTED: None. POSTOPERATIVE PLAN: Mobilization with collar to be worn for 3 months. Head of bed should be above 30 degrees. Swallowing trial with ice chips first and then advance from there.
== END 2021-02-06 16:37 | disposition home health service (06) ==
LOC: OR 05:50 → EDSTATUS 07:30 → 5NMEDONC 11:14 → OR 02-05 15:04
PROVIDERS: ADMIT Orthopaedic Surgery; ATTEND Orthopaedic Surgery
DX: M47.12 Other spondylosis with myelopathy, cervical region (principal); M48.02 Spinal stenosis, cervical region; M50.01 Cervical disc disorder with myelopathy, high cervical region; M50.11 Cervical disc disorder with radiculopathy, high cervical region; M25.78 Osteophyte, vertebrae; I10 Essential (primary) hypertension; K21.9 Gastro-esophageal reflux disease without esophagitis; J18.9 Pneumonia, unspecified organism; E87.1 Hypo-osmolality and hyponatremia; R26.89 Other abnormalities of gait and mobility; R53.1 Weakness; R47.1 Dysarthria and anarthria; R13.10 Dysphagia, unspecified; G40.909 Epilepsy, unspecified, not intractable, without status epilepticus; E78.5 Hyperlipidemia, unspecified; F32.9 Major depressive disorder, single episode, unspecified; G81.91 Hemiplegia, unspecified affecting right dominant side; G95.89 Other specified diseases of spinal cord; F17.210 Nicotine dependence, cigarettes, uncomplicated; Z20.822 Contact with and (suspected) exposure to COVID-19; Z86.79 Personal history of other diseases of the circulatory system; Z86.73 Personal history of transient ischemic attack (TIA), and cerebral infarction without residual deficits; Z79.82 Long term (current) use of aspirin; Z79.02 Long term (current) use of antithrombotics/antiplatelets; Z79.899 Other long term (current) drug therapy; Z88.2 Allergy status to sulfonamides; Z91.048 Other nonmedicinal substance allergy status; Z82.49 Family history of ischemic heart disease and other diseases of the circulatory system; Z80.3 Family history of malignant neoplasm of breast; Z80.1 Family history of malignant neoplasm of trachea, bronchus and lung; Z80.8 Family history of malignant neoplasm of other organs or systems
CPT/HCPCS: 94640 ×4; 93005; 97116; 97162; 92610; 92526; 92611; 86900; 86901; 80053; 80048; 84484; 85025 ×2; 85730; 86850; 87070; 84145; 87635; 74230; 72040; 71045; 72125; 22554; 22585 ×2; 22853 ×3; 20930; G0378 ×2; L0120; C1713 ×2; C1762 ×2; J2250; J1100; J0690 ×2; J2405; J2001; J0692 ×2; J3010; J1170 ×2; J0330; J2704

== ENCOUNTER 2021-02-27 21:18 | Observation (INO) | payer OTHER ==
--- NOTE | 2021-02-27 23:01 | ED ---
General Adult HPI - General Chief complaint: Fall Stated complaint: post op-multiple falls Time Seen by Provider: 02/27/21 22:05 Source: patient Mode of arrival: ambulatory Limitations: no limitations - History of Present Illness Initial comments: 50 year-old female patient who is post op day #24 after having anterior cervical fusion and discectomy from C3-C6. Patient states after her procedure she was offered placement at rehab facility but declined and wanted to go home. Patient states since she has been home she has had 7 falls. States that most recent fall was today. States that she feels like she loses her balance. States that she has fallen onto her buttocks. Denies any injury or new back pain. She is requesting admission for placement at rehab facility because she lives alone and feels that the falls are dangerous. She has attempted contacting her surgeon without success. She was told by her primary care physician to come to the emergency department for evaluation if she had another fall. Patient denies any headache, back pain, chest pain, shortness of breath, dizziness, weakness, abdominal pain, nausea, vomiting, or difficulties with bowel movements or urination. - Related Data Home Medications Medication Instructions Recorded Confirmed Famotidine 20 mg PO BID 12/22/20 02/27/21 lisinopriL 40 mg PO HS 12/22/20 02/27/21 Previous Rx's Medication Instructions Recorded Aspirin 81 mg PO DAILY 30 Days #30 chew 12/26/20 Atorvastatin [Lipitor] 40 mg PO HS 3 Days #30 tab 12/26/20 Divalproex [Depakote] 500 mg PO BID 30 Days #60 tablet. 12/26/20 Albuterol Sulfate [Ventolin HFA] 1 - 2 puff INHALATION Q6H PRN #1 02/06/21 inhaler amLODIPine [Norvasc] 10 mg PO DAILY #30 tab 02/06/21 Allergies Allergy/AdvReac Type Severity Reaction Status Date / Time adhesive Allergy Rash/Hives Verified 02/27/21 23:18 Sulfa (Sulfonamide Allergy Rash/Hives Verified 02/27/21 23:18 Antibiotics) Review of Systems ROS Statement: Those systems with pertinent positive or pertinent negative responses have been documented in the HPI. ROS Other: All systems not noted in ROS Statement are negative. Past Medical History Past Medical History: CVA/TIA, GERD/Reflux, Hypertension Additional Past Medical History / Comment(s): Brain aneurysm 17 coils and 3 stents (JUN 2020), hospitalized at [facility] 12/22 to 12/26/20 for vision changes right side weakness-possible CVA., uses wheelchair, states hx falls., occasional dizziness., Cervical Stenosis. History of Any Multi-Drug Resistant Organisms: None Reported Additional Past Surgical History / Comment(s): Brain aneurysm with brain coil. (Jun 2020 @ [facility]) Past Anesthesia/Blood Transfusion Reactions: No Reported Reaction, Motion Sickness Past Psychological History: No Psychological Hx Reported Smoking Status: Current every day smoker Past Alcohol Use History: Occasional Past Drug Use History: None Reported - Past Family History Mother Family Medical History: No Reported History General Exam Limitations: no limitations General appearance: alert, in no apparent distress, other (This is a well- developed, well-nourished adult female patient in no acute distress. Vital signs upon presentation are temperature 98.6F, pulse 95, respirations 18, blood pressure 140/89, pulse ox 99% on room air.) Eye exam: Present: normal appearance, PERRL, EOMI. Absent: scleral icterus, conjunctival injection, periorbital swelling ENT exam: Present: normal exam, normal oropharynx, mucous membranes moist Neck exam: Present: normal inspection, other (Healing anterior cervical incision.). Absent: tenderness, meningismus, lymphadenopathy Respiratory exam: Present: normal lung sounds bilaterally. Absent: respiratory distress, wheezes, rales, rhonchi, stridor Cardiovascular Exam: Present: regular rate, normal rhythm, normal heart sounds. Absent: systolic murmur, diastolic murmur, rubs, gallop, clicks GI/Abdominal exam: Present: soft, normal bowel sounds. Absent: distended, tenderness, guarding, rebound, rigid Neurological exam: Present: alert, oriented X3, CN II-XII intact Expanded Motor strength exam: RUE: 2/1, LUE: 5, RLE: 2/1, LLE: 5 Psychiatric exam: Present: normal affect, normal mood Skin exam: Present: warm, dry, intact, normal color. Absent: rash Course Vital Signs 02/27/21 02/28/21 21:54 00:05 Temperature 98.6 F 97.7 F Pulse Rate 95 97 Respiratory 18 18 Rate Blood Pressure 140/89 149/94 O2 Sat by Pulse 99 98 Oximetry Medical Decision Making - Medical Decision Making 50 year-old female patient presents with frequent falls after having anterior cervical fusion and discectomy with Dr. Tran about 24 days ago. States that she has had 7 falls since the surgery and lives alone. Family and patient feel it is unsafe for her to remain at home and want rehab placement. She is requesting [facility]. Did attempt to admit to medicine however they feel this is an orthopedic issue related to recent surgery so she was admitted to Dr. Riggs who was contacted. Labs are reviewed and are unremarkable. Patient is otherwise healthy and stable for admission to ortho. My attending is Dr. Antonio. - Lab Data Result diagrams: 02/27/21 23:46 02/27/21 23:46 Disposition Clinical Impression: Multiple falls, Right sided weakness Disposition: ADMITTED IP TO THIS [facility] Condition: Serious Decision to Admit Reason: Admit from [facility] Decision Date: 02/27/21 Decision Time: 23:44
[2021-02-27] MEDS ORDERED: NALOXONE 0.4 MG/ML 1 ML VIAL IV PRN (23:41)
[2021-02-28 00:01] LABS: Basophils % (A) 0 %; Eosinophils # (A) 0.2 k/uL (0-0.7); Eosinophils % (A) 3 %; HCT 39.9 % (34.0-46.0); HGB 13.6 gm/dL (11.4-16.0); Lymphocytes # (A) 2.7 k/uL (1.0-4.8); Lymphocytes % (A) 37 %; MCH 33.6 pg (25.0-35.0); MCHC 33.9 g/dL (31.0-37.0); MCV 98.9 fL (80.0-100.0); Mean Platelet Volume 6.8; Monocytes # (A) 0.4 k/uL (0-1.0); Monocytes % (A) 5 %; Neutrophils # (A) 3.9 k/uL (1.3-7.7); Neutrophils % (A) 53 %; Platelet Count 375 k/uL (150-450); RBC 4.04 m/uL (3.80-5.40); RDW 12.2 % (11.5-15.5); WBC 7.4 k/uL (3.8-10.6)
[2021-02-28 00:17] LABS: ALT 30 U/L (4-34); AST 48 U/L (14-36); African American GFR (CKD) >90 (>60 ml/min/1.73 sqM); Albumin 3.8 g/dL (3.5-5.0); Alkaline Phosphatase 71 U/L (38-126); Anion Gap 5 mmol/L; Blood Urea Nitrogen 11 mg/dL (7-17); Calcium 9.7 mg/dL (8.4-10.2); Carbon Dioxide 29 mmol/L (22-30); Chloride 104 mmol/L (98-107); Glucose 109 mg/dL (74-99); Non-African American GFR(CKD) >90 (>60 ml/min/1.73 sqM); Sodium 138 mmol/L (137-145); Total Bilirubin <0.1 mg/dL (0.2-1.3); Total Protein 6.1 g/dL (6.3-8.2)
[2021-02-28 01:51] LABS: Amorphous Sediment,Urine Moderate /hpf; Appearance,Urine Cloudy (Clear); Bilirubin,Urine Negative (Negative); Blood,Urine Negative (Negative); Color,Urine Yellow; Glucose,Urine (UA) Negative (Negative); Ketones,Urine 1+ (Negative); Leukocyte Esterase,Urine Negative (Negative); Mucus,Urine Rare /hpf; Nitrite,Urine Negative (Negative); PH, Urine 7.5 (5.0-8.0); Protein,Urine Trace (Negative); RBC,Urine 2 /hpf (0-5); Specific Gravity,Urine 1.027 (1.001-1.035); Squamous Epithelial Cell,Urine 4 /hpf (0-4); WBC,Urine 1 /hpf (0-5)
--- NOTE | 2021-02-28 12:06 | P.HPOR ---
History of Present Illness H&P Date: 02/28/21 Chief Complaint: Right-sided weakness/gait abnormality Patient is a 50-year-old female who presents after undergoing cervical fusion approximately 4 weeks ago with persistent weakness and inability to ambulate. She notes no real changes since the surgery. She has had multiple falls, however has no complaints of pain. She denies any fevers or chills or any bowel or bladder incontinence. Review of Systems Constitutional: Reports as per HPI Musculoskeletal: Reports frequent falls, Reports gait dysfunction, Reports muscle weakness Past Medical History Past Medical History: CVA/TIA, GERD/Reflux, Hypertension Additional Past Medical History / Comment(s): Brain aneurysm 17 coils and 3 stents (JUN 2020), hospitalized at [facility] 12/22 to 12/26/20 for vision changes right side weakness-possible CVA., uses wheelchair, states hx falls., occasional d izziness., Cervical Stenosis. History of Any Multi-Drug Resistant Organisms: None Reported Past Surgical History: Back Surgery (Recent cervical fusion) Additional Past Surgical History / Comment(s): Brain aneurysm with brain coil. (Jun 2020 @ [facility]); neck cervical fusion C3-C6 02/03/21 Past Anesthesia/Blood Transfusion Reactions: No Reported Reaction, Motion Sickness Past Psychological History: No Psychological Hx Reported Smoking Status: Current every day smoker Past Alcohol Use History: Occasional Additional Past Alcohol Use History / Comment(s): started smoking 11 yrs old, trying to quit-smoking 1/2 ppd (down from 1ppd) Past Drug Use History: None Reported - Past Family History Mother Family Medical History: No Reported History Medications and Allergies Home Medications Medication Instructions Recorded Confirmed Type Famotidine 20 mg PO BID 12/22/20 02/27/21 History lisinopriL 40 mg PO HS 12/22/20 02/27/21 History Aspirin 81 mg PO DAILY 30 Days #30 chew 12/26/20 02/27/21 Rx Atorvastatin [Lipitor] 40 mg PO HS 3 Days #30 tab 12/26/20 02/27/21 Rx Divalproex [Depakote] 500 mg PO BID 30 Days #60 tablet. 12/26/20 02/27/21 Rx Albuterol Sulfate [Ventolin HFA] 1 - 2 puff INHALATION Q6H PRN #1 02/06/21 02/27/21 Rx inhaler amLODIPine [Norvasc] 10 mg PO DAILY #30 tab 02/06/21 02/27/21 Rx Allergies Allergy/AdvReac Type Severity Reaction Status Date / Time adhesive Allergy Rash/Hives Verified 02/27/21 23:18 Sulfa (Sulfonamide Allergy Rash/Hives Verified 02/27/21 23:18 Antibiotics) Physical Examination - C Spine: dermatomal strength & reflexes right Shoulder strength: flexion: 1/5 Shoulder strength: extension: 1/5 Shoulder strength: abduction: 1/5 Shoulder strength: adduction: 1/5 Shoulder strength: internal rotation: 1/5 Shoulder strength: external rotation: 1/5 Wrist strength: flexion: 1/5 Wrist strength: extension: 1/5 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 Reflexes: biceps: grade 3, brachial radialis: grade 3, triceps: grade 3 Results Cervical incision clean/dry/intact Nontender cervical/thoracic/lumbar spine, no step-off noted No point tenderness about the upper or lower extremities Pelvis is stable to external rotation stress No pain with log roll of either hip - Labs Labs: Abnormal Lab Results - Last 24 Hours (Table) 02/27/21 02/28/21 Range/Units 23:46 01:27 Glucose 109 H (74-99) mg/dL Total Bilirubin <0.1 L (0.2-1.3) mg/dL AST 48 H (14-36) U/L Total Protein 6.1 L (6.3-8.2) g/dL Urine Appearance Cloudy H (Clear) Urine Protein Trace H (Negative) Urine Ketones 1+ H (Negative) Amorphous Sediment Moderate H (None) /hpf Urine Mucus Rare H (None) /hpf H & H 02/27/21 Range/Units 23:46 Hgb 13.6 (11.4-16.0) gm/dL Hct 39.9 (34.0-46.0) % Result Diagrams: 02/27/21 23:46 02/27/21 23:46 Assessment and Plan Assessment: Status post recent cervical fusion Right-sided hemiplegia Gait abnormality History of cerebral aneurysm clipping Plan: At this point we will have physical therapy and occupational therapy evaluate and begin mobilization of the patient. We will ask case management to work on possible inpatient rehabilitation. Time with Patient: Greater than 30
[2021-02-28] MEDS: ACETAMINOPHEN TAB 325 MG TAB PO PRN ×2 (13:37→19:54)
[2021-02-28] MEDS: DIVALPROEX 500 MG TABLET.DR PO SCH ×2 (13:38→20:38)
[2021-02-28] MEDS: ASPIRIN 81 MG PO SCH (13:39)
[2021-02-28] MEDS ORDERED: ALBUTEROL NEBULIZED 2.5 MG/3 ML INHALATION PRN (14:51)
[2021-02-28] MEDS ORDERED: HYDROcodone/APAP 5-325MG 1 EACH TAB PO PRN (14:52)
[2021-02-28] MEDS ORDERED: ALPRAZolam 0.25 MG TAB PO PRN (14:52)
--- NOTE | 2021-02-28 15:40 | XR ---
EXAMINATION TYPE: XR chest 1V portable DATE OF EXAM: 02/28/2021 COMPARISON: 02/05/2021 HISTORY: Right-sided weakness TECHNIQUE: Single view FINDINGS: Heart and mediastinum are normal. Lungs are clear. Diaphragm is normal. Bony thorax is inta ct. Pulmonary vascularity is normal. IMPRESSION: Normal chest. There is improved inspiration compared to old exam.
[2021-02-28] MEDS: HEPARIN SODIUM,PORCINE/PF 5,000 UNIT/0.5 ML SYRINGE SQ SCH ×2 (16:44→20:38)
[2021-02-28] MEDS: amLODIPine 10 MG TAB PO SCH (16:44)
--- NOTE | 2021-02-28 20:23 | CONS ---
CONSULTATION DATE OF SERVICE: 02/28/2021 REASON FOR CONSULTATION: Advice regarding hypertension and other multiple medical issues, requested by Dr. Riggs. HISTORY OF PRESENT ILLNESS: This 50-year-old woman with a past history of CVA, TIA, GERD, hypertension, history of brain aneurysm, recently underwent C3-5 spondylosis and anterior cervical fusion and discectomy for myelopathy. The patient was apparently recommended the ECF, but the patient went home and had apparently 7 falls and patient had gait dysfunction. Patient came to [facility] and was admitted for further evaluation and treatment. ECF rehab is being planned at this time. There is no history of fever, rigors or chills. No headache, loss of consciousness, seizures. PAST MEDICAL HISTORY: History of CVA, TIA, GERD, hypertension, history of brain aneurysm, back surgery. MEDICATIONS: Prior to admission, home medications: Lisinopril 40 mg daily. Norvasc, Famotidine, Depakote, Lipitor, aspirin, Ventolin, doses reviewed. ALLERGIES: ADHESIVE and SULFA. FAMILY HISTORY: No history of heart disease or strokes in the family. SOCIAL HISTORY: No history of smoking. No history of alcohol. REVIEW OF SYSTEMS: ENT: No diminished vision. No diminished hearing. CARDIOVASCULAR: No angina or palpitations. RESPIRATION: No cough. GI: No nausea or vomiting. no dysuria. Nervous system: As mentioned earlier. Allergy/Immunology: No asthma or hayfever. MUSCULOSKELETAL: As mentioned earlier. HEMATOLOGY/ONCOLOGY: No history of anemia. ENDOCRINE: No history of diabetes or hypothyroidism. CONSTITUTIONAL: As mentioned earlier. DERMATOLOGY: Negative. RHEUMATOLOGY: Negative. PSYCHIATRY as mentioned earlier. PHYSICAL EXAMINATION: The patient is alert and oriented times three. Pulse 77. Blood pressure 140/99, respiration 18, temperature 98.4, pulse ox 97% on room air. HEENT: Conjunctivae normal. NECK: No JVD. CARDIOVASCULAR: S1, S2 muffled. RESPIRATORY: Breath sounds diminished in the bases. A few rhonchi. No crackles. ABDOMEN: Soft, nontender. No mass palpable. EXTREMITIES: Examination of the neck status post surgery. Legs are no edema, no swelling. NERVOUS SYSTEM: Diffusely weak. LAB: WBC within normal limits. AST is 48, ALT is 30. UA is cloudy but unremarkable. ASSESSMENT: 1. Multiple falls. 2. History of recent anterior cervical fusion, discectomy for C3-C5, C4 spondylosis, cervical myelopathy. 3. Gait dysfunction. 4. History of cerebrovascular accident, transient ischemic attack with right-sided weakness. 5. Gastroesophageal reflux disease. 6. Hypertension. 7. History of brain aneurysm. 8. History of back surgery. 9. History of nicotine dependence. 10.FULL CODE. RECOMMENDATIONS AND DISCUSSION: This 50-year-old woman who presented with multiple medical issues, we will monitor the patient closely, continue the current medications, management and symptomatic treatment. I recommend resume the home medications. PT/OT evaluation, possible ECF rehab. DVT prophylaxis. Smoking cessation recommendation. The patient is planning to go to [facility] for rehab. Thank you Dr. Riggs, for letting us participate in the care of this patient. MMODL / IJN: [id number] /
[2021-02-28] MEDS: ATORVASTATIN 40 MG TAB PO SCH (20:37)
[2021-02-28] MEDS: lisinopriL 20 MG TAB PO SCH (20:38)
[2021-02-28] MEDS: FAMOTIDINE 20 MG TAB PO SCH (20:39)
[2021-03-01] MEDS: FAMOTIDINE 20 MG TAB PO SCH (07:48)
[2021-03-01] MEDS: PANTOPRAZOLE 40 MG TABLET PO SCH (07:48)
[2021-03-01] MEDS: amLODIPine 10 MG TAB PO SCH (07:48)
[2021-03-01] MEDS: ASPIRIN 81 MG PO SCH (07:48)
[2021-03-01] MEDS: HEPARIN SODIUM,PORCINE/PF 5,000 UNIT/0.5 ML SYRINGE SQ SCH ×2 (07:48→20:51)
[2021-03-01] MEDS: DIVALPROEX 500 MG TABLET.DR PO SCH ×2 (07:48→20:51)
--- NOTE | 2021-03-01 10:41 | P.PN ---
Subjective Progress Note Date: 03/01/21 Principal diagnosis: Weakness, inability to perform ADLs Patient seen and examined she is doing well as complains of no pain she states that she still has weakness but she seems to be improving. She has been working on moving her hand wrist and elbow. She denies any perineal numbness or tingling denies any other issues but she has been very unsteady on her feet she is unable to care for herself at home and the in-home nursing is not enough for her and she would need more intensive rehab. Objective - Vital Signs Vital signs: Vital Signs Temp 97.7 F 03/01/21 05:00 Pulse 73 03/01/21 05:00 Resp 16 03/01/21 05:00 BP 120/72 03/01/21 05:00 Pulse Ox 94 L 03/01/21 05:00 Intake & Output 02/28/21 03/01/21 03/01/21 18:59 06:59 18:59 Intake Total 1000 Balance 1000 Intake: Oral 1000 Other: Voiding Method Bedside Commode Bedside Commode Bedside Commode # Voids 4 - Exam PHYSICAL EXAMINATION: Vitals: Stable General: Awake, alert, appropriate for age, in no acute distress. HEENT: No unusual neck masses around region of lateral neck triangle, thyroid, supraclavicular groove. Extremities: Skin warm and dry without no acute lesions, coloration, temperature, skin intact, no tenderness or erythema. Integument: Surgical incisions: HEENT and dry anterior neck incision Palpation: No tenderness to palpation Special findings: None VASCULAR STATUS : Wrist Pulses: [2/4 bilateral radial and ulnar] Pedal Pulses: [2/4 bilateral DP and PT] Color: [Normal] Edema: [None] NEUROLOGIC EXAMINATION: Mental Status: Awake and alert, fully oriented, with normal attention, concentration and memory, and fluent, appropriate speech. Cranial Nerves: I: Olfactory not tested. II: Visual acuity normal, no visual field deficit noted with confrontation. III,IV: Normal pupillary reflexes & intact extraocular movements without nystagmus. V,: Intact symmetrical facial sensation. VII: Intact symmetrical facial motor movement VIII: Hearing intact. IX,X: Intact gag, swallow, & normal voice. XI: Sternocleidomastoid, trapezius function intact. XII: Tongue midline with normal movements. Special Tests: L'hermitte's Sign: Absent Spurling'Sign: Absent Bilateral Cubital percussion test: Absent Bilateral Jamel-Tinel sign - Carpal region: Absent Bilateral Straight Leg Raising: Absent Bilateral Motor Exam (0-5/5, N/T) STRENGTH UPPER EXTREMITY Shoulder Abd (Not part of NABEEL Motor score): RIGHT 2 LEFT [5] Elbow Flexors: RIGHT 4- LEFT [5] Elbow Extensor: RIGHT 4- LEFT [5] Wrrist Dorsiflexors: RIGHT 3 LEFT [5] Finger Abductor: RIGHT 2 LEFT [5] Residential Solar Consultant: RIGHT 3 LEFT [5] LOWER EXTREMITY Hip Flexor (Not part of NABEEL Motor Score): RIGHT 3 LEFT [5] Knee Flexor: RIGHT 3 LEFT [5] Knee Extensor: RIGHT 3 LEFT [5] Ankle Dorsiflexion: RIGHT 3 LEFT [5] Ankle Plantarflexion: RIGHT 3 LEFT [5] EHL: RIGHT 3 LEFT [5] FHL: RIGHT 3 LEFT [5] I do see moderate improvements in the patient's exam she has much better strength in her upper extremity on the right with an increase in her bicipital strength tricep strength as well as wrist extension strength of which she previously had 2/5 and now has 3/5 function. She still has weak intrinsic muscles of the hand however these seem to be somewhat improving. Her right lower extremity is also improved with increased strength with heel slide against gravity which previously was a 2-3 out of 5 is now a strong 3 out of 5. REFLEXES Biecp: RIGHT [2] LEFT [2] Tricep: RIGHT [2] LEFT [2] Brachioradialis: RIGHT [2] LEFT [2] Patellar: RIGHT [2] LEFT [2] Achilles: RIGHT [2] LEFT [2] Her reflexes are brisk however they are also improved and less myelopathic Pathological Reflexes Sage's: RIGHT present LEFT present Babinski: RIGHT [Absent] LEFT [Absent] Clonus: RIGHT [None] LEFT [None] SENSORY Joint Position: [Intact bilaterally] Vibration [Intact bilaterally] Pain and LT sense [Intact C5-T1 and L2-S1] Dermatomal deficit [None] Gait and Functional Evaluation: Ambulatory aids: Walker Hand and finger dexterity intact bilaterally except for the right upper extremity where she still has issues with this. Disdiadochokinesis examination negative except for the right upper extremity where she still has issues at this - Labs CBC & Chem 7: 02/27/21 23:46 02/27/21 23:46 Assessment and Plan Assessment: 50-year-old female status post C3 to C6 ACDF for severe stenosis cervical myelopathy right upper extremity and right lower extremity weakness status post CVA. Inability to complete ADLs at home Multiple falls Plan: -Appreciate medical management -No pain control made at this time -Physical therapy and occupational therapy evaluations and treatments patient needs to work on continued motion within her right upper extremity left upper extremity for neuromodulation so that she can regain the strength in her limbs. I do feel that most of this came from her previous CVA these are not new thing since surgery however she is improving since surgery. She is to continue to w ork on motion of these segments in order to regain her full capacity -Case management for placement due to and up elevated to perform ADLs, multiple falls, need for continued care and post stroke therapy
[2021-03-01] MEDS: ACETAMINOPHEN TAB 325 MG TAB PO PRN ×2 (11:42→20:53)
--- NOTE | 2021-03-01 20:23 | PN ---
PROGRESS NOTE DATE OF SERVICE: 03/01/2021. This 50-year-old woman who was admitted with recent anterior cervical fusion, also had multiple falls. PT/OT evaluation, possible ECF rehab. No chest pain. No palpitations. No fever. PHYSICAL EXAMINATION: Alert and oriented x3. Pulse is 78, blood pressure 124/79, respirations 17, temperature 97.9, pulse ox 98% on room air. HEENT: Conjunctivae normal. NECK: No JVD. CARDIOVASCULAR: S1, S2 muffled. Respirations: Breath sounds diminished in the bases. A few scattered rhonchi. ABDOMEN: Soft. Nervous system: Right hemiplegia from the previous stroke present. LABS: Noted. The chest x-ray which I reviewed personally showed improved aeration. ASSESSMENT: 1. History of recent anterior cervical fusion discectomy, C3, C5, C4 spondylosis and cervical myelopathy. 2. Gait dysfunction and multiple falls. 3. History of cerebrovascular accident, transient ischemic attack with right-sided weakness. 4. Gastroesophageal reflux disease. 5. Hypertension. 6. History of brain aneurysm. 7. History of back surgery. 8. History of nicotine dependence. 9. FULL CODE. RECOMMENDATIONS AND DISCUSSION: I recommend to continue current medications, management and symptomatic treatment. PT/OT evaluation. DVT prophylaxis. ECF rehab. Further recommendations to follow. MMODL / IJN: [id number] /
[2021-03-01] MEDS: ATORVASTATIN 40 MG TAB PO SCH (20:50)
[2021-03-01] MEDS: lisinopriL 20 MG TAB PO SCH (20:50)
--- NOTE | 2021-03-02 08:04 | P.PN ---
Subjective Progress Note Date: 03/02/21 Principal diagnosis: Weakness, inability to perform ADLs Patient seen and examined she is resting comfortably she is doing well has no issues at this time. Objective - Vital Signs Vital signs: Vital Signs Temp 97.7 F 03/02/21 05:00 Pulse 72 03/02/21 05:00 Resp 20 03/02/21 05:00 BP 125/85 03/02/21 05:00 Pulse Ox 95 03/02/21 05:00 Intake & Output 03/01/21 03/02/21 03/02/21 18:59 06:59 18:59 Intake Total 600 100 Balance 600 100 Intake: Oral 600 100 Other: Voiding Method Bedside Commode Bedside Commode # Voids 5 1 - Exam Her exam remained stable today PHYSICAL EXAMINATION: Vitals: Stable General: Awake, alert, appropriate for age, in no acute distress. HEENT: No unusual neck masses around region of lateral neck triangle, thyroid, supraclavicular groove. Extremities: Skin warm and dry without no acute lesions, coloration, temperature, skin intact, no tenderness or erythema. Integument: Surgical incisions: HEENT and dry anterior neck incision Palpation: No tenderness to palpation Special findings: None VASCULAR STATUS : Wrist Pulses: [2/4 bilateral radial and ulnar] Pedal Pulses: [2/4 bilateral DP and PT] Color: [Normal] Edema: [None] NEUROLOGIC EXAMINATION: Mental Status: Awake and alert, fully oriented, with normal attention, concentration and memory, and fluent, appropriate speech. Cranial Nerves: I: Olfactory not tested. II: Visual acuity normal, no visual field deficit noted with confrontation. III,IV: Normal pupillary reflexes & intact extraocular movements without nystagmus. V,: Intact symmetrical facial sensation. VII: Intact symmetrical facial motor movement VIII: Hearing intact. IX,X: Intact gag, swallow, & normal voice. XI: Sternocleidomastoid, trapezius function intact. XII: Tongue midline with normal movements. Special Tests: L'hermitte's Sign: Absent Spurling'Sign: Absent Bilateral Cubital percussion test: Absent Bilateral Jamel-Tinel sign - Carpal region: Absent Bilateral Straight Leg Raising: Absent Bilateral Motor Exam (0-5/5, N/T) STRENGTH UPPER EXTREMITY Shoulder Abd (Not part of NABEEL Motor score): RIGHT 2 LEFT [5] Elbow Flexors: RIGHT 4- LEFT [5] Elbow Extensor: RIGHT 4- LEFT [5] Wrrist Dorsiflexors: RIGHT 3 LEFT [5] Finger Abductor: RIGHT 2 LEFT [5] Rn Faculty: RIGHT 3 LEFT [5] LOWER EXTREMITY Hip Flexor (Not part of NABEEL Motor Score): RIGHT 3 LEFT [5] Knee Flexor: RIGHT 3 LEFT [5] Knee Extensor: RIGHT 3 LEFT [5] Ankle Dorsiflexion: RIGHT 3 LEFT [5] Ankle Plantarflexion: RIGHT 3 LEFT [5] EHL: RIGHT 3 LEFT [5] FHL: RIGHT 3 LEFT [5] I do see moderate improvements in the patient's exam she has much better strength in her upper extremity on the right with an increase in her bicipital strength tricep strength as well as wrist extension strength of which she previously had 2/5 and now has 3/5 function. She still has weak intrinsic muscles of the hand however these seem to be somewhat improving. Her right lower extremity is also improved with increased strength with heel slide against gravity which previously was a 2-3 out of 5 is now a strong 3 out of 5. REFLEXES Biecp: RIGHT [2] LEFT [2] Tricep: RIGHT [2] LEFT [2] Brachioradialis: RIGHT [2] LEFT [2] Patellar: RIGHT [2] LEFT [2] Achilles: RIGHT [2] LEFT [2] Her reflexes are brisk however they are also improved and less myelopathic Pathological Reflexes Sage's: RIGHT present LEFT present Babinski: RIGHT [Absent] LEFT [Absent] Clonus: RIGHT [None] LEFT [None] SENSORY Joint Position: [Intact bilaterally] Vibration [Intact bilaterally] Pain and LT sense [Intact C5-T1 and L2-S1] Dermatomal deficit [None] Gait and Functional Evaluation: Ambulatory aids: Walker Hand and finger dexterity intact bilaterally except for the right upper extremity where she still has issues with this. Disdiadochokinesis examination negative except for the right upper extremity where she still has issues at this - Labs CBC & Chem 7: 02/27/21 23:46 02/27/21 23:46 Assessment and Plan Assessment: 50-year-old female status post C3 to C6 ACDF for severe stenosis cervical myelopathy right upper extremity and right lower extremity weakness status post CVA. Inability to complete ADLs at home Multiple falls Plan: -Appreciate medical management -No pain control made at this time -Physical therapy and occupational therapy evaluations and treatments patient needs to work on continued motion within her right upper extremity left upper extremity for neuromodulation so that she can regain the strength in her limbs. I do feel that most of this came from her previous CVA these are not new thing since surgery however she is improving since surgery. She is to continue to work on motion of these segments in order to regain her full capacity -Case management for placement due to and up elevated to perform ADLs, multiple falls, need for continued care and post stroke therapy -ECF today
--- NOTE | 2021-03-02 08:09 | P.DS ---
Providers Date of admission: 02/27/21 23:37 Expected date of discharge: 03/02/21 Attending physician: Troy Riggs Consults: 02/28/21 12:08 Consult Physician Routine Consulting Provider: Korina Luna Consult Reason/Comments: medical managment Do you want consulting provider notified?: Yes Primary care physician: Oumar Bloom [facility] Course: 50-year-old female was admitted to the hospital due to inability to perform axes of daily living and failed outpatient as well as home therapy. The patient has had a recent CVA which causes right-sided upper extremity and lower extremity weakness on top of having cervical spondylotic myelopathy. She underwent surgery for the cervical spondylotic myelopathy several weeks prior and did well from this however she is unable to care for herself at home when she went home with her friend. She represented to the emergency department due to several falls and inability to care for herself she was admitted to undergo physical therapy as well as occupational therapy for assessment as well as to assess for recent falls or trauma. She did well with that she did well with therapy PT and OT. We are recommending at this time extended care placement due to her inability to ambulate her difficulty with ADLs due to right-sided weakness and hemiplegia secondary to her stroke. She is recovering some of her strength from the surgery however it is unclear how much of this is due to the stroke versus the spondylotic myelopathy that she has had. We discussed this at length with the patient she did well with therapy and on the floor pain is being controlled she is passed milestones and she is ready to go to her extended care facility at this time. Patient is currently stable stable. Patient Condition at Discharge: Stable Plan - Discharge Summary New Discharge Prescriptions: No Action lisinopriL 40 mg PO HS Famotidine 20 mg PO BID amLODIPine [Norvasc] 10 mg PO DAILY #30 tab Albuterol Sulfate [Ventolin HFA] 1 - 2 puff INHALATION Q6H PRN #1 inhaler PRN Reason: Wheezing Aspirin 81 mg PO DAILY 30 Days #30 chew Divalproex [Depakote] 500 mg PO BID 30 Days #60 tablet. Atorvastatin [Lipitor] 40 mg PO HS 3 Days #30 tab Discharge Medication List Famotidine 20 mg PO BID 12/22/20 [History] lisinopriL 40 mg PO HS 12/22/20 [History] Aspirin 81 mg PO DAILY 30 Days #30 chew 12/26/20 [Rx] Atorvastatin [Lipitor] 40 mg PO HS 3 Days #30 tab 12/26/20 [Rx] Divalproex [Depakote] 500 mg PO BID 30 Days #60 tablet.dr 12/26/20 [Rx] Albuterol Sulfate [Ventolin HFA] 1 - 2 puff INHALATION Q6H PRN #1 inhaler 02/06/21 [Rx] amLODIPine [Norvasc] 10 mg PO DAILY #30 tab 02/06/21 [Rx] Follow up Appointment(s)/Referral(s): Oumar Shetty MD [Primary Care Provider] - 1-2 days Sascha Tran DO [Doctor of Osteopathic Medicine] - 2 Weeks Activity/Diet/Wound Care/Special Instructions: Orthopedic discharge instructions: -Encourage ambulation -Pain control as needed wean narcotics -PT OT daily with working on motion of right upper and right lower extremity active motion and passive motion to prevent contractures as well as to regain strength in this arm and leg. -GI DVT prophylaxis as appropriate -No need for cervical collar at this time -Encourage good nutrition, vitamin D thousand international units daily combined with calcium 1200 mg daily -Vitamin C 2000 mg daily -Follow-up in office Discharge Disposition: TRANSFER TO SNF/ECF
[2021-03-02] MEDS: DIVALPROEX 500 MG TABLET.DR PO SCH (09:44)
[2021-03-02] MEDS: PANTOPRAZOLE 40 MG TABLET PO SCH (09:45)
[2021-03-02] MEDS: amLODIPine 10 MG TAB PO SCH (09:45)
[2021-03-02] MEDS: HEPARIN SODIUM,PORCINE/PF 5,000 UNIT/0.5 ML SYRINGE SQ SCH (09:45)
[2021-03-02] MEDS: ASPIRIN 81 MG PO SCH (09:54)
[2021-03-02] MEDS: ACETAMINOPHEN TAB 325 MG TAB PO PRN (09:54)
[2021-03-02 12:26] VITALS: BP 119/79; PULSE 78; RESP 16; TEMP 97.9
--- NOTE | 2021-03-02 20:48 | PN ---
PROGRESS NOTE DATE OF SERVICE: 03/02/2021. HISTORY: This 50-year-old woman was admitted with recent anterior cervical fusion, diskectomy, had significant gait dysfunction, patient had multiple falls also. Patient closely monitored. PT/OT evaluating for possible ECF rehab. No chest pain. No palpitations. No fever. PHYSICAL EXAMINATION: Alert and oriented x3.. Pulse 78, blood pressure 119/70, respirations 16, temperature 97.2, pulse ox 94% on room air. HEENT: Normocephalic. Oral mucosa moist. NECK: Supple. No jugular venous distention. No lymph node enlargement. CARDIOVASCULAR: S1 and S2 present. LUNGS: Breath sounds diminished at the bases. No rhonchi no crackles. ABDOMEN: Soft nontender. LEGS: No edema, no swelling. NERVOUS SYSTEM: Right hemiplegia present. BACK: Status post surgery. LABS: Noted. ASSESSMENT: 1. Recent anterior cervical fusion discectomy, C3, 4 and 5, spondylosis and cervical myelopathy, gait dysfunction, multiple falls. 2. History of CVA TIA with right-sided weakness. 3. Gastroesophageal reflux disease. 4. Hypertension. 5. History of brain aneurysm. 6. History of back surgery. 7. History of nicotine dependence. 8. FULL CODE. RECOMMENDATIONS: Recommend continue current management and symptomatic treatment. Otherwise at this time I would recommend PT OT evaluation for ECF rehab. Continue to monitor. Further recommendations per Orthopedic Surgery. MMODL / IJN: [id number] /
== END 2021-03-02 16:30 ==
LOC: EC 21:18 → 5NMEDONC 23:37
PROVIDERS: ADMIT Orthopaedic Surgery; ATTEND Orthopaedic Surgery
DX: I69.351 Hemiplegia and hemiparesis following cerebral infarction affecting right dominant side (principal); R26.9 Unspecified abnormalities of gait and mobility; W18.30XA Fall on same level, unspecified, initial encounter; M48.02 Spinal stenosis, cervical region; G95.9 Disease of spinal cord, unspecified; M47.12 Other spondylosis with myelopathy, cervical region; R29.6 Repeated falls; Z98.1 Arthrodesis status; Z98.890 Other specified postprocedural states; K21.9 Gastro-esophageal reflux disease without esophagitis; I10 Essential (primary) hypertension; F17.200 Nicotine dependence, unspecified, uncomplicated; I67.1 Cerebral aneurysm, nonruptured; Z20.822 Contact with and (suspected) exposure to COVID-19; Z79.899 Other long term (current) drug therapy; Z88.2 Allergy status to sulfonamides; Z91.048 Other nonmedicinal substance allergy status; Z79.82 Long term (current) use of aspirin
CPT/HCPCS: 96372 ×3; 99284; 97162; 97166; 80053; 85025; 81001; 87635; 71045; G0378 ×3; J1644 ×3

== ENCOUNTER → 2021-09-22 | Outpatient (CLI) | payer OTHER ==
--- NOTE | 2021-09-23 02:40 | MR ---
EXAMINATION TYPE: MR brain wo/w con DATE OF EXAM: 09/22/2021 COMPARISON: 12/24/2020 HISTORY: Weakness CONTRAST: Standard multiplanar, multisequence MRI departmental protocol images were obtained without contrast n one and with 8 mL intravenous Gadavist gadolinium contrast. There is some low signal at the santa apparently from artifact. This area is obscured. The ventricles are top normal in size. There is no mass effect or midline shift. There is no evidence of intracrania l hemorrhage. There are scattered tiny high signal foci at the holguin-white matter junction of both cer ebral hemispheres measuring up to 3 mm. Total numbers less than 10. The orbits are intact. The corpus callosum is intact. Diffusion images show no evidence of an acute infarct. There is possible 1 cm area of pathologic enha ncement in the anterior aspect of the upper brainstem at the anterior superior aspect of the santa. Th is could be vascular out formation. IMPRESSION: Abnormal decreased 2.2 cm decreased signal in the upper anterior santa could be metal artifact. There is possible enhancement anteriorly that could be vascular malformation or aneurysm of the basilar art farrah. This appears not significantly different than the old MR angiogram of 12/24/2020. There are scattered tiny white matter high signal foci that could be minimal microvascular ischemia.
== END | disposition home or self-care (01) ==
LOC: RADMRIMAIN 07:54
PROVIDERS: ATTEND Orthopaedic Surgery
DX: M62.81 Muscle weakness (generalized) (principal); M54.2 Cervicalgia; M54.50 Low back pain, unspecified; M54.6 Pain in thoracic spine
CPT/HCPCS: 70553; A9585

== ENCOUNTER → 2021-10-11 | Outpatient (CLI) | payer OTHER ==
--- NOTE | 2021-10-11 20:17 | MR ---
EXAMINATION TYPE: MR cspine/tspine/lspine wo/w DATE OF EXAM: 10/11/2021 COMPARISON: MRI cervical spine December 24, 2020 HISTORY: Neck pain, mid back pain, low back pain that radiates down both legs TECHNIQUE: Multiplanar, multisequence imaging of cervical, thoracic, and lumbar spine are all perform ed without and with IV contrast patient injected with 7.5 cc gadolinium for the study. FINDINGS: Slightly suboptimal as there is some motion artifact degradation on later postcontrast sequ ences C-SPINE: FINDINGS: Sagittal images of the cervical spine show the craniocervical junction to remain within nor mal limits. The cervical and upper thoracic spinal cord is normal in caliber and signal. Vertebral alignment is straightened in satisfactory after surgery. There is artifact from a long segment fusion hardware and artificial disc material at C3-C6 levels The vertebral body and intravertebral disk hei ghts are normal above and below surgical levels. The bone marrow signal intensity is within normal l imits above and below surgical levels. No abnormal postcontrast enhancement seen.. Axial images C2-C3 level to remain within normal limits. Axial images at C3-C4 level, C4-C5, C5-C6, and C6-C7 levels show artifact from surgical change, spina l canal is preserved, there is asymmetric moderate left-sided neural foraminal narrowing at the C5-C6 level otherwise bilateral neural foramina are patent. Axial images at C7-T1 level remain within normal limits. IMPRESSION: Improved alignment after surgery. T-SPINE: Spinal cord shows normal course, caliber, and signal as it courses the thoracic spine. Vertebral bod y heights and alignment are satisfactory. Disc space heights are maintained. Bone marrow signal inten sity is preserved. No large posterior disc herniations. No suspicious postcontrast enhancement. Review of the axial images shows no significant spinal canal stenosis or neural foraminal narrowing a t any thoracic level. Heterogeneous slightly prominent thyroid in the upper thorax is present. No hosea picious findings in the remainder of the thorax or upper abdomen. IMPRESSION: No significant abnormality is seen to account for patient's symptoms. L-SPINE: FINDINGS: Sagittal images of the lumbar spine show vertebral body heights and alignment to appear sat isfactory. Multilevel disc desiccation and mild to moderate disc space narrowing greatest left L4-L5 level there is heterogeneous echotexture endplate changes. Mild to moderate multilevel anterior spurr ing The conus medullaris is normal in position and signal ending T12-L1 disc space level. No suspicio us postcontrast enhancement. Axial images at T12-L1 level and L1-L2 levels appear within normal limits. Axial images at L2-L3 level mild broad disc bulge and mild facet degenerative changes bilaterally. Th ere is mild effacement of the anterior thecal sac. There is mild left-sided anterior inferior neural foraminal narrowing. Axial images at the L3-L4 levels mild broad-based posterior disc protrusion mildly effacing the anter ior thecal sac. Bilateral neural foramina are patent. Axial images at the L4-L5 level mild/moderate facet degenerative changes bilaterally. There is modera te broad-based posterior disc protrusion. There is mild to moderate left greater than right bilateral anterior inferior neural foraminal narrowing. Axial images at the L5-S1 level mild facet degenerative changes bilaterally. There is mild central di sc protrusion minimally effacing the anterior thecal sac. The bilateral neural foramina are patent. The paraspinal muscle bulk is preserved. IMPRESSION: Multilevel degenerative changes in lumbar spine as detailed above greatest at left L4-L5 level.
== END | disposition home or self-care (01) ==
LOC: RADMRIMAIN 13:41
PROVIDERS: ATTEND Orthopaedic Surgery
DX: M51.36 Other intervertebral disc degeneration, lumbar region (principal)
CPT/HCPCS: 72156; 72157; 72158; A9585